=== PATIENT | male | born 1940 | race Caucasian/White ===

== ENCOUNTER 2017-04-24 10:38 | Outpatient (CLI) | payer MEDICARE ==
--- NOTE | 2017-04-24 17:39 | MRI ---
MRI LUMBAR SPINE WITHOUT IV CONTRAST: Date: 04-24-17 History: Lumbar radiculopathy. Patient has bilateral leg and feet neuropathy. FINDINGS: Conus medullaris has a normal appearance and terminates at the L1-2 level. There are large increased T1 and T2 weighted signal intensity lesions in the T12 and L4 vertebral bodies as well as smaller b ut moderated sized lesion within the L1 vertebral body which demonstrates characteristics most consi stent with large hemangiomas. Hemangioma of the L4 vertebral body almost completely replaces the arpita tebral body. There are subcentimeter T2 and corresponding decreased T1 weighted signal intensity les ions within the L2 and L5 vertebral bodies which demonstrate a stippled appearance and are also like ly related to hemangiomas. There is generalized heterogeneity of the bone marrow. T12-L1: There is a mild broad based disc bulge with results in slight effacement of the ventral suba rachnoid space. Neural foramina are patent. L1-2: There is a mild broad based disc osteophyte complex with facet hypertrophic changes and mild l igamentous thickening. Findings results in mild narrowing of the central spinal canal as well as mil d left sided neural foraminal narrowing. The right neural foramen is patent. L2-3: There is a broad based disc osteophyte complex. Facet hypertrophic changes are seen. There is mild narrowing of the central spinal canal. There is mild to moderate right and mild left sided neur al foraminal narrowing. L3-4: There is a broad based disc osteophyte complex. Facet hypertrophic changes and ligamentous thi ckening is noted. There is prominent of epidural fat posteriorly. Findings result in moderate narrow ing of the central spinal canal as well as moderate bilateral neural foraminal narrowing. L4-5: There is a broad based disc osteophyte complex. There are facet hypertrophic changes as well a s ligamentous thickening. Fluid signal intensity is seen at the facet joints at this level. There is prominence of epidural fat posteriorly. Findings result in moderate to severe narrowing of the cent ral spinal canal. There is also severe bilateral neural foraminal narrowing. L5-S1: There is mild broad based disc osteophyte complex. Prominent facet hypertrophic changes are p resent. There is fluid signal intensity seen within the facet joints. There is no significant narrow ing of the central spinal canal, but there is moderate to severe right and moderate left neural fora claudia narrowing. IMPRESSION: 1. Multilevel degenerative changes throughout the lumbar spine greatest in the lower lumbar spine. T here is severe bilateral neural foraminal narrowing at the L4-5 level with moderate to severe narrow ing of the central spinal canal. There is also moderate to severe bilateral neural foraminal narrowi ng at the L5-S1 level. 2. Multiple hemangiomas within vertebral bodies with generalized heterogeneous appearance of the bon e marrow. POS: [facility]
== END 2017-04-24 10:39 | disposition home or self-care (01) ==
LOC: MRI 10:38
PROVIDERS: ATTEND Family Medicine
DX: M47.26 Other spondylosis with radiculopathy, lumbar region (principal); D18.09 Hemangioma of other sites
CPT/HCPCS: 72148

== ENCOUNTER 2017-04-27 02:48 | Inpatient (IN) | payer MEDICARE ==
[2017-04-27 03:49] LABS: Lactic Acid - Sepsis 0.4 mmol/L (0.5-2.2)
[2017-04-27] MEDS ORDERED: Clindamycin/D5W 900 mg/50 ml Premix Bag ONE (04:13)
[2017-04-27 04:46] LABS: Troponin I 0.172 ng/mL (< 0.028)
[2017-04-27] MEDS ORDERED: Enoxaparin Sodium 100 MG/ML SYRINGE ONE (05:18)
[2017-04-27] MEDS ORDERED: Enoxaparin Sodium 30 MG/0.3 ML SYRINGE ONE (05:18)
[2017-04-27] MEDS ORDERED: Acetaminophen 325 MG TAB PO PRN ×2 (05:27→09:28)
[2017-04-27] MEDS ORDERED: Ondansetron HCl/PF 4 MG/2 ML Vial IVP PRN (05:27)
[2017-04-27] MEDS ORDERED: HYDROcodone/Acetaminophen 5/325 mg Tablet PO PRN (05:27)
[2017-04-27 05:55] VITALS: BMI 39.6
[2017-04-27] MEDS ORDERED: Vancomycin HCl 1.5 GM in Sodium Chloride 0.9% 250 ML 300 ML IVPB SCH (06:00)
[2017-04-27] MEDS: Mometasone/Formoterol 120 PUFF INHALER INH SCH ×2 (06:15→18:32)
--- NOTE | 2017-04-27 06:36 | PDOC.EVN ---
Event Note - Event Note Event Note: [id number] H&P Dictated 1. Leg cellulitis 2. HTN 3. H/O COPD 4. H/O BPH plan; see orders
[2017-04-27 07:44] LABS: Troponin I 0.164 ng/mL (< 0.028)
--- NOTE | 2017-04-27 08:50 | HP ---
DATE OF ADMISSION: 04/27/2017 CHIEF COMPLAINT: Leg erythema. HISTORY OF PRESENT ILLNESS: The patient is a 76-year-old male with past medical history of congesti ve heart failure, hypertension, COPD, CKD, chronic hyponatremia, alcohol abuse, came to the ER [facility] se of right leg edema. According to the the patient has a right leg fracture a few months back , since then he always has right lower extremity edema, but edema got worse the last few days, assoc iated with some drainage also. The patient went to PCP 2 days back and the patient was started on p .o. antibiotics. The patient was taking Keflex and Bactrim as an outpatient. The erythema got wors e yesterday. Denies any fever, denies any chills, that is why he came to the ER. In the ER the pat gildardo did have some low grade fever, denies chills. Patient denies any chest pain, denies any troubl e breathing, denies dizziness, denies lightheadedness. PAST MEDICAL HISTORY: As per HPI. PAST SURGICAL HISTORY: Carpal tunnel surgery, rotator cuff surgery, knee replacement. SOCIAL HISTORY: Denies smoking, positive for alcohol abuse, drinks alcohol every day, denies street drugs. REVIEW OF SYSTEMS: CONSTITUTIONAL: Denies any fever, denies any chills. EYES: Denies vision problems. EARS: Ears; no hearing loss. NECK: Denies neck pain. CARDIOVASCULAR: Denies any chest pain, denies palpitations. RESPIRATORY: Denies any cough, denies sputum production. GASTROINTESTINAL: Denies nausea, vomiting. MUSCULOSKELETAL: Positive for right lower extremity erythema. CRANIAL NERVE SYSTEM: Denies syncope, denies lightheadedness. PSYCHIATRIC: Denies anxiety. INTEGUMENTARY: Positive for right leg erythema. All other review of systems are reviewed and are negative. PHYSICAL EXAMINATION: VITAL SIGNS: At the time of H\T\P performed, blood pressure is 91/47, heart rate 65, pulse ox 96%. GENERAL: This patient appears tired. HEENT: ENT patent. Nose normal. Ears normal. Teeth intact. Tongue is moist. NECK: Supple, no jugular venous distention. CARDIOVASCULAR: S1, S2 present. Regular rate and rhythm, no murmurs, no rubs, no gallops. RESPIRATORY: No wheezing, no rhonchi present bilaterally. ABDOMEN: Soft, nontender, no guarding, no organomegaly, no masses felt. MUSCULOSKELETAL: Right lower extremity positive for erythema, warm to touch, positive for drainage seen. INTEGUMENTARY: Positive for right lower extremity edema. PSYCHIATRIC: Mood appears normal. NEUROLOGIC: Cranial nerves intact. Follows commands. Strength intact, sensory intact. LABORATORY DATA: At the time of H\T\P performed; sodium 133, potassium 4.7, chloride 100, CO2 24, B UN of 33, creatinine 1.91. White count 7, hemoglobin 11.5, platelet count is 168. PT 13.9, INR 1. D-dimer 1.27. Ultrasound negative for DVT. ASSESSMENT AND PLAN: The patient is 76 years old male. 1. Right lower extremity cellulitis. Plan to start patient on broad spectrum antibiotics. Plan to monitor the patient closely. 2. History of hypertension, monitor blood pressures, continue home blood pressure. 3. History of chronic obstructive pulmonary disease. Continue breathing treatments and monitor. 4. History of congestive heart failure, strict I's and O's. Continue home medications. 5. History of benign prostatic hypertrophy. Continue finasteride. The case was discussed in detail with the patient.
[2017-04-27] MEDS ORDERED: Enoxaparin Sodium 40 MG/0.4 ML SYRINGE SC SCH (09:00)
--- NOTE | 2017-04-27 09:01 | ULT ---
PRELIMINARY REPORT/[facility]/EMERGENCY AFTER HOURS PROCEDURE: EXAM: US Duplex Bilateral Lower Extremity Veins CLINICAL HISTORY: 76 years old, male; Pain and signs and symptoms; Edema, localized and other: Rle reddness; Lower ext remity, bilateral; Leg, lower; Patient HX: Rle redness, bilat pain/edema; Additional info: HX: Chf, rle cellulitis TECHNIQUE: Real-time ultrasound scan of the veins of the bilateral lower extremities with color Doppler flow, s pectral waveform analysis and compression. COMPARISON: No relevant prior studies available. FINDINGS: Right leg: No visible clot in the included veins. The included veins appear normally compressible. Duplex Doppler evaluation demonstrates flow in the evaluated veins. Left leg: No visible clot in the included veins. The included veins appear normally compressible. Duplex Doppler evaluation demonstrates flow in the evaluated veins. IMPRESSION: No evidence of acute right lower extremity DVT. No evidence of acute left lower extremity DVT. Thank you for allowing us to participate in the care of your patient. Dictated and Authenticated by: Felix Monk MD 04/27/2017 4:30 AM Central Time ([place] \T\ [place]) FINAL REPORT VENOUS ULTRASOUND BILATERAL LOWER EXTREMITIES: FINDINGS/IMPRESSION: I agree with the above-provided preliminary interpretation. No evidence of DVT. Soft tissue edema. Correlate clinically. POS: [facility]
[2017-04-27] MEDS ORDERED: Nitroglycerin 0.4 MG TAB (25 Tab Bottle) PO PRN (09:12)
[2017-04-27] MEDS ORDERED: RENALLY ADJUST ABX IVPB SCH (09:29)
[2017-04-27] MEDS ORDERED: Furosemide 40 MG/4 ML VIAL SLOW IVP SCH (09:30)
[2017-04-27] MEDS ORDERED: cefTRIAXone\\ROCEPHIN 1 GM in Sodium Chloride 0.9% 100 ML IVPB SCH (09:30)
[2017-04-27] MEDS ORDERED: Meropenem 1 GM in Sodium Chloride 0.9% 100 ML IVPB SCH (09:30)
--- NOTE | 2017-04-27 09:37 | PDOC.EVN ---
Event Note - Event Note Event Note: Patient seen and examined. Cardiology consulted for CHF. Has gained 16 lbs since last admission. Will start Lasix. DC Clindamycin. Add Ceftriaxone. Added general admission/CHF set. AM labs. Fluid restriction.
[2017-04-27] MEDS: Gabapentin 300 MG CAP PO SCH (10:56)
[2017-04-27] MEDS: Finasteride 5 MG TAB PO SCH (10:56)
[2017-04-27] MEDS: Aspirin 81 mg Enteric Coated Tablet PO SCH (10:56)
[2017-04-27] MEDS ORDERED: cefTRIAXone\\ROCEPHIN 1 GM, Admixture Fee 1 EACH in Sodium Chloride 0.9% 100 ML IVPB SCH (11:15)
[2017-04-27] MEDS ORDERED: Clindamycin/D5W 600 MG in Premix Bag 1 BAG IVPB SCH (12:00)
[2017-04-27] MEDS: cefTRIAXone\\ROCEPHIN 1 GM, Admixture Fee 1 EACH in Sodium Chloride 0.9% 100 ML IVPB SCH (12:49)
[2017-04-27] MEDS: Vancomycin HCl 1.5 GM in Sodium Chloride 0.9% 250 ML 300 ML IVPB SCH (12:49)
[2017-04-27] MEDS: Furosemide 40 MG/4 ML VIAL SLOW IVP SCH (14:26)
[2017-04-27] MEDS: Carvedilol 6.25 MG TAB PO SCH (17:38)
[2017-04-27] MEDS ORDERED: Enoxaparin Sodium 30 MG/0.3 ML SYRINGE SC SCH (21:00)
[2017-04-27] MEDS ORDERED: Carvedilol 6.25 MG TAB PO SCH (21:00)
[2017-04-27] MEDS ORDERED: Non-Formulary Item 1 EACH (Carvedilol [Coreg] 12.5 MG) PO SCH (21:00)
[2017-04-27] MEDS: Docusate 100 MG CAP PO SCH (21:16)
[2017-04-27] MEDS: Famotidine 20 MG TAB PO SCH (21:16)
[2017-04-28] MEDS: Furosemide 40 MG/4 ML VIAL SLOW IVP SCH ×2 (05:12→15:14)
[2017-04-28 06:06] LABS: #Eosinphils 0.4 thou/uL (0.0-0.7); #Lymphocytes 0.4 thou/uL (1.20-3.40); #Monocytes 0.5 thou/uL (0.11-0.59); #Neutrophils 3.1 thou/uL (1.40-6.50); %Basophils 0.7 % (0.0-1.0); %Eosinophils 8.7 % (0.0-10.0); %Monocytes 11.9 % (0.0-10.0); Hematocrit 32.8 % (42.0-52.0); Mean Platelet Volume 7.2 fL (7.4-10.4); Red Blood Cell (RBC) Count 3.14 mill/uL (4.70-6.10); White Blood Cell (WBC) Count 4.5 thou/uL (4.8-10.8)
--- NOTE | 2017-04-28 06:09 | CON ---
DATE OF CONSULTATION: 04/27/2017 INDICATION FOR CONSULTATION: A 76-year-old patient with indeterminate cardiac enzymes and history o f single vessel coronary artery disease. HISTORY OF PRESENT ILLNESS: This unfortunate gentleman who is 76-year-old has had no significant ca ia history, but does have one single-vessel coronary artery disease, had 50% stenosis in the righ t coronary in 2012, which was not felt to be significant for any angioplasty or stent placement or f urther intervention. He has been doing quite well since that time. He denied any complaints. Rece ntly, he has been having some problems with his right lower extremity in the lower aspect after he h ad a fracture. He then was placed on antibiotics recently. He noticed he had some redness and some fatigue with the legs and pain and erythema. He then presented to the emergency room for further e valuation and treatment. On evaluation there, he also underwent evaluation for the cardiac enzymes, which were felt to be indeterminate. He has had abnormal enzymes in the past. He denied any chest pain. His EKG is unremarkable for any acute problems. He denies any chest pain or significant farida rtness of breath. He does have some mild shortness of breath with exertion, but otherwise no signif icant problems have been noted by the patient. He does have a history of some congestive heart fail ure symptoms in the past and has been treated with diuretics and has responded quite well to that. He does have hypertension, but his ejection fraction has remained normal. He did complain of some w eakness of the lower extremities, which he said was due to weakness in his back. He has recently be en going also to [place] to get his teeth fixed back and forth and he has had some antibiotics I ruben santos during that time also, but otherwise, has been doing quite well. PAST MEDICAL HISTORY: 1. Significant for some congestive heart failure symptoms most likely associated with his hypertens ion and obesity. 2. Hypertension. 3. COPD. 4. He has chronic kidney disease, which is actually very stable and has been stable for quite some time. 5. He has had a right lower leg fracture. He has cellulitis of right lower extremity SOCIAL HISTORY: He is , has children who are alive and well. He denies any tobacco abuse. He has apparently daily alcohol use of 3-4 shots. FAMILY HISTORY: Unremarkable at this time for any acute problems he has related to this admission. ALLERGIES: Allergic to PENICILLIN. MEDICATIONS PRIOR TO ADMISSION: Included Protonix; potassium; lisinopril; multivitamins; Coreg 12.5 mg, he is taking 25 mg b.i.d.; CoQ10; Symbicort inhaler; gabapentin; isosorbide mononitrate 30 mg d aily; Lipitor 20 mg a day; nabumetone 500 mg daily; cephalexin 500 mg b.i.d.; he is taking Bactrim a lso 1 tablet b.i.d.; ferrous sulfate 325 mg a day; he is on Lotrisone cream as needed; he also takes torsemide 40 mg a day, finasteride 5 mg daily. REVIEW OF SYSTEMS: He mainly complains of occasional blurred vision. He has had recent problems wi th his teeth for which he went to [place] and replaced. He has had some work done in his teeth. He has right leg cellulitis and discomfort. He complaints of a weak back. Otherwise, his 12-point rev iew of systems is unremarkable. PHYSICAL EXAMINATION: GENERAL: Reveals a middle-aged or elderly gentleman who is morbidly obese. VITAL SIGNS: Blood pressure 134/60, heart rate 76, respiratory rate 18. He is afebrile. HEENT: Shows the head to be normocephalic and atraumatic. Carotid pulses are present. I cannot he ar any bruits. There is no JVD. The thyroid did not appear to be enlarged. CHEST: Clear to auscultation. I did not hear any rales, rhonchi or wheezing at this time. CARDIOVASCULAR: Exam reveals a regular rate and rhythm, normal S1, S2. There is no S3, S4. There were no significant murmurs, heaves, thrills, bruits or rubs. ABDOMEN: Shows morbid obesity. Positive bowel sounds are present. EXTREMITIES: Showed no clubbing or cyanosis. He does have some erythema noted in the right lower e xtremity just below the knee all the way down to the ankle involving the ankle and foot area due to cellulitis. He also has mild edema of both lower extremities, 1-2+ edema is noted. Pedal pulses ar e difficult to palpate, but are present. NEUROLOGIC: He appears to be fully intact. He is able to ambulate without too much difficulty at l east in the room. He does have some discomfort with leg. SKIN: Warm and dry at this time. IMAGING: His EKG shows sinus rhythm. He did have a venous ultrasound Doppler performed, which show ed no evidence of DVT. LABORATORY DATA: Shows a creatinine of 1.95 with a BUN of 33, potassium is 4.7, sodium was 133, blo od sugar 128. His cardiac enzymes showed a troponin I of 0.172, decrease down to 0.164. BNP of 572 with LDH of 75. He also has an AST of 19 with an ALT of 15, alkaline phosphatase 52. IMPRESSION: 1. Mild volume overload, although he most likely will respond very well to Lasix. He will need to advised to watch his volume intake as well as salt, but he does have actually hyponatremia and most likely he will do well with this small amount of sodium. His previous history of volume overload is due to lack of inactivity recently and just sitting around and not watching what he has been eating or drinking. His BNP is slightly elevated at 572, but is not critical as we sometimes see in the r efraín of 1000. 2. History of indeterminant troponin I, which is not unusual in this gentleman. He has had this ph enomenon in the past without any evidence of myocardial infarction. 3. Chronic kidney disease. His creatinine is 1.95 and on previous admissions it has been as much a s 2.83 and as low as 1.05. At this time, I believe his overall cardiac status is stable. We will c sebas to follow him with you as most significant problem appears to be cellulitis of the right low er extremity. 4. History of alcohol use. He said he drinks 3-4 drinks a day. His liver function appears to be n ormal. He may have some slight amount of ascites with difficult to palpate due to the obese abdomen . At this time, there is no further cardiac workup that would be indicated.
[2017-04-28 06:23] LABS: ALT (SGPT) 25 U/L (8-55); AST (SGOT) 27 U/L (5-34); Alkaline Phosphatase 69 U/L (40-150); Anion Gap 11 mmol/L (10-20); BUN (Urea Nitrogen) 33 mg/dL (8.4-25.7); Bilirubin, Total 0.3 mg/dL (0.2-1.2); Calc. Creatinine Clearance 54 mL/min (70-130); Calcium 8.3 mg/dL (7.8-10.44); Carbon Dioxide 26 mmol/L (23-31); Chloride 99 mmol/L (98-107); Estimated GFR-MDRD 33; Globulin 2.8 g/dL (2.4-3.5); Magnesium 2.2 mg/dL (1.6-2.6); Phosphorus 3.2 mg/dL (2.3-4.7); Protein, Total 6.1 g/dL (5.8-8.1)
[2017-04-28] MEDS: Carvedilol 6.25 MG TAB PO SCH ×2 (08:04→16:46)
[2017-04-28] MEDS: Docusate 100 MG CAP PO SCH ×2 (08:05→20:07)
[2017-04-28] MEDS: Finasteride 5 MG TAB PO SCH (08:05)
[2017-04-28] MEDS: Aspirin 81 mg Enteric Coated Tablet PO SCH (08:05)
[2017-04-28] MEDS: Famotidine 20 MG TAB PO SCH ×2 (08:05→20:07)
[2017-04-28] MEDS: Gabapentin 300 MG CAP PO SCH (08:06)
[2017-04-28] MEDS: Mometasone/Formoterol 120 PUFF INHALER INH SCH ×2 (08:25→19:10)
[2017-04-28] MEDS ORDERED: Enoxaparin Sodium 30 MG/0.3 ML SYRINGE SC SCH (09:00)
--- NOTE | 2017-04-28 12:07 | PDOC.PN ---
- Subjective Encounter Start Date: 04/28/17 Encounter Start Time: 11:00 Patient seen and examined. No new complaints. No overnight events. SOB better. - Objective Resuscitation Status: Resuscitation Status FULL:Full Resuscitation MAR Reviewed: Yes Vital Signs & Weight: Vital Signs (12 hours) Temp Pulse Resp BP BP Pulse Ox 04/28/17 12:00 98.1 F 68 20 114/54 L 94 L 04/28/17 08:31 94 L 04/28/17 08:25 80 12 04/28/17 08:04 134/60 04/28/17 07:55 97.9 F 80 12 138/65 96 04/28/17 04:00 98.1 F 78 18 133/60 95 Weight Admit Weight 276 lb Weight 273 lb 1.6 oz I&O: 04/27/17 04/28/17 04/29/17 06:59 06:59 06:59 Intake Total 1200 Output Total 1000 Balance 200 Result Diagrams: 04/28/17 05:35 04/28/17 05:35 EKG Reviewed by me: Yes (Tele SR) Phys Exam - Physical Examination Constitutional: NAD HEENT: PERRLA Neck: no JVD Respiratory: no wheezing, no rhonchi Scat rales at bases, Symmetrical Cardiovascular: RRR, no rub no gallops/heaves Gastrointestinal: soft, non-tender, positive bowel sounds Musculoskeletal: edema present (RLE erythema) Neurological: non-focal, normal sensation, moves all 4 limbs Dx/Plan (1) Acute on chronic diastolic heart failure Code(s): I50.33 - ACUTE ON CHRONIC DIASTOLIC (CONGESTIVE) HEART FAILURE Status : Acute (2) Cellulitis of right leg Code(s): L03.115 - CELLULITIS OF RIGHT LOWER LIMB Status: Acute Comment: on Vancomycin/Ceftriaxone (3) MEAGAN (acute kidney injury) Code(s): N17.9 - ACUTE KIDNEY FAILURE, UNSPECIFIED Status: Acute (4) CKD (chronic kidney disease) stage 3, GFR 30-59 ml/min Code(s): N18.3 - CHRONIC KIDNEY DISEASE, STAGE 3 (MODERATE) Status: Acute (5) Hyponatremia Code(s): E87.1 - HYPO-OSMOLALITY AND HYPONATREMIA Status: Acute Comment: ? chronic (6) CAD (coronary artery disease) Code(s): I25.10 - ATHSCL HEART DISEASE OF [place] CORONARY ARTERY W/O ANG PCTRS Status: Chronic (7) Elevated troponin Code(s): R74.8 - ABNORMAL LEVELS OF OTHER SERUM ENZYMES Status: Acute Comment: due to CHF - Plan cont current plan of care, continue antibiotics, out of bed/ambulate, DVT proph w/lovenox, DVT proph w/SCDs * Consult ID - No significant improvement in RLE cellulitis * AM labs * Cont diuretics * Change Gabapentin to HS per patient req * Cont tele monitoring * Cont fluid restriction * Monitor Vancomycin levels * ACEI on hold due to MEAGAN Review of Systems - Review of Systems Respiratory: SOB with Excertion. negative: Cough, Dry, Shortness of Breath, Hemoptysis, Pleuritic Pain, Sputum, Wheezing Cardiovascular: negative: Chest Pain, Palpitations, Orthopnea, Paroxysmal Noc. Dyspnea, Edema, Light Headedness, Other Gastrointestinal: negative: Nausea, Vomiting, Abdominal Pain, Diarrhea, Constipation, Melena, Hematochezia, Other - Medications/Allergies Allergies/Adverse Reactions: Allergies Allergy/AdvReac Type Severity Reaction Status Date / Time Penicillins Allergy Verified 01/02/17 11:17 Medications: Current Medications Acetaminophen (Tylenol) 650 mg PO Q4H PRN PRN Reason: Headache/Fever or Mild Pain Hydrocodone Bitart/Acetaminophen ([place] 5/325) 1 tab PO Q4H PRN PRN Reason: Moderate Pain (4-6) Albuterol/Ipratropium (Duoneb) 3 ml IPPB Q4H PRN PRN Reason: Wheezing or Cough Aspirin (Ecotrin) 81 mg PO DAILY [facility] Last Admin: 04/28/17 08:05 Dose: 81 mg Carvedilol (Coreg) 12.5 mg PO BID[facility] Last Admin: 04/28/17 08:04 Dose: 12.5 mg Docusate Sodium (Colace) 100 mg PO BID [facility] Last Admin: 04/28/17 08:05 Dose: 100 mg Duloxetine HCl (Cymbalta) 60 mg PO DAILY [facility] Last Admin: 04/28/17 08:05 Dose: 60 mg Enoxaparin Sodium (Lovenox) 30 mg SC 2100 [facility] Last Admin: 04/27/17 21:16 Dose: 30 mg Famotidine (Pepcid) 20 mg PO BID [facility] Last Admin: 04/28/17 08:05 Dose: 20 mg Finasteride (Proscar) 5 mg PO DAILY [facility] Last Admin: 04/28/17 08:05 Dose: 5 mg Furosemide (Lasix) 40 mg SLOW IVP 0600,1400 [facility] Last Admin: 04/28/17 05:12 Dose: 40 mg Gabapentin (Neurontin) 300 mg PO HS JAVIER Vancomycin HCl 1.5 gm/ Sodium (Chloride) 300 mls @ 200 mls/hr IVPB 1200 [facility] Last Admin: 04/27/17 12:49 Dose: 300 mls Ceftriaxone Sodium 1 gm/Miscellaneous Medication 1 each/ Sodium Chloride 100 mls @ 200 mls/hr IVPB Q24HR [facility] Last Admin: 04/27/17 12:49 Dose: 100 mls Miscellaneous Medication (Pharmacy To Dose) 1 each IVPB ASDIR [facility] Mometasone Furoate/Formoterol Fumar (Dulera 200 Mcg/5 Mcg Inhaler) 1 puff INH BID-RT [facility] Last Admin: 04/28/17 08:25 Dose: 1 puff Nitroglycerin (Nitrostat) 0.4 mg PO Q5MIN PRN PRN Reason: Chest Pain Ondansetron HCl (Zofran) 4 mg IVP Q6H PRN PRN Reason: Nausea/Vomiting Pantoprazole Sodium (Protonix) 40 mg PO DAILY [facility] Last Admin: 04/28/17 08:06 Dose: 40 mg Sodium Chloride (Flush - Normal Saline) 10 ml IVF PRN PRN PRN Reason: Saline Flush Last Admin: 04/28/17 08:08 Dose: 10 ml
[2017-04-28] MEDS: Vancomycin HCl 1.5 GM in Sodium Chloride 0.9% 250 ML 300 ML IVPB SCH (12:19)
[2017-04-28] MEDS: cefTRIAXone\\ROCEPHIN 1 GM, Admixture Fee 1 EACH in Sodium Chloride 0.9% 100 ML IVPB SCH ×2 (15:03→15:39)
--- NOTE | 2017-04-28 15:03 | PDOC.CTH ---
Cardiology Progress Note - Subjective The pt was seen and examined. No overnight events. No cardiac complaints. He is very sleepy due to pain medication for his leg pain he administered this afternoon. - Objective Vital Signs Temp Pulse Pulse Pulse Resp BP BP 04/28/17 12:00 98.1 F 68 20 04/28/17 08:55 80 70 112/54 L 04/28/17 08:31 04/28/17 08:25 80 12 04/28/17 08:04 134/60 04/28/17 07:55 97.9 F 80 12 04/28/17 04:00 98.1 F 78 18 BP BP Pulse Ox Pulse Ox Pulse Ox 04/28/17 12:00 114/54 L 94 L 04/28/17 08:55 110/46 L 91 L 95 04/28/17 08:31 94 L 04/28/17 08:25 04/28/17 08:04 04/28/17 07:55 138/65 96 04/28/17 04:00 133/60 95 Admit Weight 276 lb Weight 273 lb 1.6 oz 04/27/17 04/28/17 04/29/17 06:59 06:59 06:59 Intake Total 1200 Output Total 1000 Balance 200 - Physical Examination General/Neuro: alert & oriented x3 Neck: no JVD present Lungs: CTA Heart: RRR Abdomen: soft Extremities: other: (Erhythma @ Rt anterior side of his lower leg; warm to touch ; good pulses) - Telemetry Telemetry Rhythm: SR - Labs Result Diagrams: 04/28/17 05:35 04/28/17 05:35 Troponin/CKMB Troponin I 0.164 ng/mL (< 0.028) H 04/27/17 06:35 - Assessment/Plan 1. Acute on chronic diastolic heart failure - Stable with current medication; Change Lasix 40mg IV BID to PO daily due to his Renal function 2. HTN - stable with current medication 3. COPD - Stable with RA; cont. monitor 4. CKD stage 3 - slightly worse than yesterday; Change Lovenox to Heparin BID 5. Cellulitis of RLL - consulted by ID 6. Hyponatremia - on Fluid restriction MAR reviewed Review of Systems - Review of Systems Constitutional: reports: no symptoms reported EENTM: reports: no symptoms reported Respiratory: reports: no symptoms reported Cardiac (ROS): reports: no symptoms reported ABD/GI: reports: no symptoms reported : reports: no symptoms reported Endocrine: reports: no symptoms reported Hematologic/Lymphatic: reports: no symptoms reported
--- NOTE | 2017-04-28 17:55 | CON ---
DATE OF CONSULTATION: 04/28/2017 REASON FOR CONSULTATION: Cellulitis. HISTORY OF PRESENT ILLNESS: A 76-year-old with a history of cardiomyopathy, hypertension, COPD, and alcohol dependency syndrome as well as venous insufficiency, who developed a right leg cellulitis o r inflammatory changes. He had some areas of abrasion in the bottom aspect of the right foot given oral antimicrobials including Keflex and Bactrim with worsening and then admission for management. Initial findings, he was afebrile, appeared in some distress. No jugular venous distention. Lungs with symmetric air entry. Abdomen is protuberant, but not tender. Right leg with erythema and a sh allow abrasion at the bottom aspect of the right foot plantar aspect. Initial labs with white cell count of 4.5, hemoglobin 10.8 and platelets 153,000. Sodium 132, creatinine 1.97, which is higher t acosta his baseline from 07.14. Patient has been started on antimicrobial therapy with ceftria xone and vancomycin. Currently, he is feeling a little better, eating lunch for trying to having di fficulty with his dentures. No headaches. No visual symptoms, sore throat, odynophagia, or dysphag ia. Mild dyspnea. No chest pain. No abdominal pain. Voiding without difficulty. No diarrhea. S ome mobility impairment from his EGD and cardiomyopathy. No cognitive dysfunction. PAST MEDICAL HISTORY: Obesity, COPD, alcohol beverage dependency syndrome, some form of cardiomyopa thy, hypertension, and venous insufficiency. PAST SURGICAL HISTORY: Rotator cuff and knee repair, knee replacement, carpal tunnel surgery. SOCIAL HISTORY: Used to smoke heavily, but he quit a few years ago. Drinks daily. FAMILY HISTORY: Noncontributory. ALLERGIES: PENICILLIN with pruritus, but no rash. PHYSICAL EXAMINATION: VITAL SIGNS: T-max 99, currently 98.1, BP 114/54, pulse 68, respirations 12-20, O2 sat 94%. GENERAL: Appears in mild to moderate distress, sitting up, eating lunch, oriented. SKIN EXAM: With a circumferential erythema right leg, evidence of stasis dermatitis with hyperpigme ntation left leg. HEENT: Facial hyperemia. Injected conjunctivae. Pupils are equal. Oral cavity with quite a few t eeth in place. NECK: With some jugular venous distention. Supple. LUNGS: With somewhat coarse breath sounds, but no crackles or wheezing. HEART: S1, S2, regular rate. ABDOMEN: Protuberant. Nontender. No ascites. No bladder distention. No organomegaly. EXTREMITIES: Degenerative joint disease in knees and ankles. Pulses are faint palpable dorsalis pe dis. Moves extremities equally. NEUROLOGIC: Cognitive function appears to be intact. Labs have been reviewed above. Liver profile normal. Albumin 3.3. Microbiology pending, thus far negative blood cultures. Venogram negative. ASSESSMENT: Chronic obstructive pulmonary disease and cardiomyopathy, probably diastolic dysfunctio n and alcohol abuse, venous insufficiency with evidence of right leg cellulitis. DISCUSSION: Beta-hemolytic Streptococci are the most likely culprit here. Discontinue vancomycin a nd continue Rocephin, transition to Keflex for discharge planning; and after that penicillin VK supp ressive dose for 1 year 250 mg twice daily plus compression stockings.
[2017-04-28] MEDS: Heparin 5,000 UNITS/ML VIAL SC SCH (20:06)
[2017-04-29 06:01] LABS: #Eosinphils 0.4 thou/uL (0.0-0.7); #Lymphocytes 0.5 thou/uL (1.20-3.40); #Monocytes 0.6 thou/uL (0.11-0.59); #Neutrophils 3.3 thou/uL (1.40-6.50); %Basophils 0.3 % (0.0-1.0); %Eosinophils 9.3 % (0.0-10.0); %Lymphocytes 10.6 % (21.0-51.0); %Monocytes 12.2 % (0.0-10.0); Hematocrit 36.5 % (42.0-52.0); Mean Platelet Volume 7.2 fL (7.4-10.4); White Blood Cell (WBC) Count 4.8 thou/uL (4.8-10.8)
[2017-04-29 06:38] LABS: Anion Gap 11 mmol/L (10-20); BUN (Urea Nitrogen) 25 mg/dL (8.4-25.7); BUN/Creatinine Ratio 15.82; Calc. Creatinine Clearance 67 mL/min (70-130); Calcium 8.8 mg/dL (7.8-10.44); Carbon Dioxide 28 mmol/L (23-31); Chloride 99 mmol/L (98-107); Estimated GFR-MDRD 43; Phosphorus 2.8 mg/dL (2.3-4.7)
[2017-04-29] MEDS: Mometasone/Formoterol 120 PUFF INHALER INH SCH ×2 (07:32→19:38)
[2017-04-29] MEDS: Furosemide 40 MG TAB PO SCH (08:26)
[2017-04-29] MEDS: Carvedilol 6.25 MG TAB PO SCH ×2 (08:27→16:39)
[2017-04-29] MEDS: Aspirin 81 mg Enteric Coated Tablet PO SCH (08:28)
[2017-04-29] MEDS: Docusate 100 MG CAP PO SCH ×2 (08:28→20:06)
[2017-04-29] MEDS: Famotidine 20 MG TAB PO SCH ×2 (08:30→20:06)
[2017-04-29] MEDS: Finasteride 5 MG TAB PO SCH (08:30)
[2017-04-29] MEDS: Heparin 5,000 UNITS/ML VIAL SC SCH ×2 (08:32→20:07)
--- NOTE | 2017-04-29 10:15 | PDOC.PN ---
- Subjective Encounter Start Date: 04/29/17 Encounter Start Time: 09:45 Subjective: Did not sleep well last night. -: No other complaint., feels better. - Objective Resuscitation Status: Resuscitation Status FULL:Full Resuscitation Vital Signs & Weight: Vital Signs (12 hours) Temp Pulse Resp BP BP Pulse Ox 04/29/17 08:27 124/60 04/29/17 08:15 98.5 F 72 18 148/70 H 94 L 04/29/17 07:35 96 04/29/17 07:32 79 12 04/29/17 04:00 98.0 F 76 20 159/76 H 94 L 04/29/17 00:00 98.1 F 75 20 159/75 H 93 L Weight Admit Weight 276 lb Weight 271 lb 4.8 oz I&O: 04/28/17 04/29/17 04/30/17 06:59 06:59 06:59 Intake Total 1200 520 Output Total 1000 320 Balance 200 200 Result Diagrams: 04/29/17 05:23 04/29/17 05:23 Phys Exam - Physical Examination HEENT: sclera anicteric, oral pharynx no lesions Neck: no JVD Respiratory: clear to auscultation bilateral Cardiovascular: RRR Gastrointestinal: non-tender Musculoskeletal: edema present (cellulitis.) Neurological: moves all 4 limbs Psychiatric: A&O x 3 Dx/Plan (1) MEAGAN (acute kidney injury) Code(s): N17.9 - ACUTE KIDNEY FAILURE, UNSPECIFIED Status: Acute Plan: f/u chemistry.. Comment: improving. (2) Acute on chronic diastolic heart failure Code(s): I50.33 - ACUTE ON CHRONIC DIASTOLIC (CONGESTIVE) HEART FAILURE Status : Acute Comment: improving.. (3) Cellulitis of right leg Code(s): L03.115 - CELLULITIS OF RIGHT LOWER LIMB Status: Acute Plan: continue antibiotics. Comment: on Vancomycin/Ceftriaxone (4) Hyponatremia Code(s): E87.1 - HYPO-OSMOLALITY AND HYPONATREMIA Status: Acute Plan: Mild improvement. P: fluid restriction. Check TFT's Comment: ?chronic (5) CAD (coronary artery disease) Code(s): I25.10 - ATHSCL HEART DISEASE OF [place] CORONARY ARTERY W/O ANG PCTRS Status: Chronic Comment: Seen by cardiology. Stable. - Plan -: Continue current management,. -: Home soon. * .
[2017-04-29 11:29] LABS: Vancomycin, Trough 14.4 ug/mL
[2017-04-29] MEDS: cefTRIAXone\\ROCEPHIN 1 GM, Admixture Fee 1 EACH in Sodium Chloride 0.9% 100 ML IVPB SCH (14:39)
[2017-04-29] MEDS ORDERED: diphenhydrAMINE 25 MG CAP PO PRN (20:34)
[2017-04-29] MEDS ORDERED: Gabapentin 300 MG CAP PO SCH (21:00)
[2017-04-30] MEDS: Mometasone/Formoterol 120 PUFF INHALER INH SCH (06:41)
[2017-04-30] MEDS: Furosemide 40 MG TAB PO SCH (08:16)
[2017-04-30] MEDS: Carvedilol 6.25 MG TAB PO SCH (08:17)
[2017-04-30] MEDS: Aspirin 81 mg Enteric Coated Tablet PO SCH (08:19)
[2017-04-30] MEDS: Docusate 100 MG CAP PO SCH (08:19)
[2017-04-30] MEDS: Famotidine 20 MG TAB PO SCH (08:20)
[2017-04-30] MEDS: Finasteride 5 MG TAB PO SCH (08:21)
[2017-04-30] MEDS: Heparin 5,000 UNITS/ML VIAL SC SCH (08:26)
[2017-04-30 09:03] LABS: Anion Gap 11 mmol/L (10-20); BUN (Urea Nitrogen) 18 mg/dL (8.4-25.7); Calc. Creatinine Clearance 87 mL/min (70-130); Calcium 8.7 mg/dL (7.8-10.44); Carbon Dioxide 28 mmol/L (23-31); Chloride 100 mmol/L (98-107); Estimated GFR-MDRD 57
--- NOTE | 2017-04-30 09:25 | PDOC.PN ---
- Subjective Encounter Start Date: 04/30/17 Encounter Start Time: 09:00 Subjective: No complaint expressed. -: feels better. - Objective Resuscitation Status: Resuscitation Status FULL:Full Resuscitation MAR Reviewed: Yes Vital Signs & Weight: Vital Signs (12 hours) Temp Pulse Resp BP BP Pulse Ox 04/30/17 08:17 169/75 H 04/30/17 08:10 98.3 F 75 18 169/75 H 94 L 04/30/17 06:43 97 04/30/17 06:41 75 12 04/30/17 05:10 97.9 F 77 18 174/84 H 97 04/30/17 00:00 98.2 F 77 18 181/85 H 94 L Weight Admit Weight 276 lb Weight 271 lb 1.6 oz I&O: 04/29/17 04/30/17 05/01/17 06:59 06:59 06:59 Intake Total 520 1060 Output Total 320 1200 Balance 200 -140 Result Diagrams: 04/29/17 05:23 04/30/17 08:27 Phys Exam - Physical Examination HEENT: sclera anicteric Neck: no JVD Respiratory: clear to auscultation bilateral Cardiovascular: RRR Gastrointestinal: soft, non-tender, no distention Musculoskeletal: edema present (In right leg + cellulitis.) Dx/Plan (1) MEAGAN (acute kidney injury) Code(s): N17.9 - ACUTE KIDNEY FAILURE, UNSPECIFIED Status: Acute Comment: improving. (2) Acute on chronic diastolic heart failure Code(s): I50.33 - ACUTE ON CHRONIC DIASTOLIC (CONGESTIVE) HEART FAILURE Status : Acute Comment: improving.. (3) Cellulitis of right leg Code(s): L03.115 - CELLULITIS OF RIGHT LOWER LIMB Status: Acute Comment: on Vancomycin/Ceftriaxone (4) Hyponatremia Code(s): E87.1 - HYPO-OSMOLALITY AND HYPONATREMIA Status: Acute Comment: ? chronic (5) CAD (coronary artery disease) Code(s): I25.10 - ATHSCL HEART DISEASE OF [place] CORONARY ARTERY W/O ANG PCTRS Status: Chronic Comment: Seen by cardiology. Stable. - Plan Stable. -: Home today. -: f/u with ID, PCP, cardiology. * .
[2017-04-30 12:35] VITALS: BP 171/77; TEMP 98.5
--- NOTE | 2017-04-30 18:19 | DIS ---
DATE OF ADMISSION: 04/27/2017 DATE OF DISCHARGE: 04/30/2017 ADMITTING DIAGNOSIS: Right lower extremity cellulitis. SECONDARY DIAGNOSES: 1. History of hypertension. 2. Chronic obstructive pulmonary disease. 3. Congestive heart failure. 4. Benign prostatic hypertrophy. DISCHARGE DIAGNOSIS: As above. CONSULTANTS: Dr. Villegas and Dr. Spears and Dr. Galloway. PROCEDURE: Venous Doppler of the lower extremity, IV administration of antibiotics. Course of hosp italization uncomplicated, responded well to management. Patient is clinically stable at this time being discharged home. DISCHARGE MEDICATIONS: Please see discharge medication reconciliation sheet. The patient is to fol low up with Dr. Villegas and also with Cardiology and his primary care physician for 2 days. PHYSICAL EXAMINATION: Please refer to patient's medical work on progress note section. DISCHARGE TIME: 32 minutes.
[2017-04-30] MEDS ORDERED: Docusate 100 MG CAP PO SCH (21:00)
[2017-05-01] MEDS ORDERED: Spironolactone 25 MG TAB PO SCH (08:00)
[2017-05-01] MEDS ORDERED: Torsemide 20 MG TAB PO SCH (09:00)
[2017-05-01] MEDS ORDERED: Multivitamin W/ Minerals 1 TAB PO SCH (09:00)
[2017-05-01] MEDS ORDERED: Lisinopril 20 MG TAB PO SCH (09:00)
[2017-05-01] MEDS ORDERED: Finasteride 5 MG TAB PO SCH (09:00)
--- OUTSIDE RECORDS SUMMARY | 2017-05-02 11:21 | XMS | Clinical Summary ---
:1940 Author Organization [facility] Address [address] [place] [address] Phone Care Team Providers Name Role Phone , Primary Care Provider Unavailable Allergies Not on File Current Medications Not on file Active Problems Not on file Social History Tobacco Use Types Packs/Day Years Used Date Never Assessed Sex Assigned at Date Recorded Not on file Last Filed Vital Signs Not on file Plan of Treatment Not on file Results Not on filefrom Last 3 Months
== END 2017-04-30 13:24 | disposition home or self-care (01) | DRG 602 ==
LOC: ERS 02:48 → 2NO 04:30
PROVIDERS: ADMIT Internal Medicine; ATTEND Internal Medicine
DX: L03.115 Cellulitis of right lower limb (principal); I50.43 Acute on chronic combined systolic (congestive) and diastolic (congestive) heart failure; N17.9 Acute kidney failure, unspecified; I42.9 Cardiomyopathy, unspecified; E87.1 Hypo-osmolality and hyponatremia; I13.0 Hypertensive heart and chronic kidney disease with heart failure and stage 1 through stage 4 chronic kidney disease, or unspecified chronic kidney disease; J44.9 Chronic obstructive pulmonary disease, unspecified; N18.3 Chronic kidney disease, stage 3 (moderate); N40.0 Benign prostatic hyperplasia without lower urinary tract symptoms; I87.2 Venous insufficiency (chronic) (peripheral); F10.20 Alcohol dependence, uncomplicated; S90.811A Abrasion, right foot, initial encounter; E66.9 Obesity, unspecified; Z68.39 Body mass index [BMI] 39.0-39.9, adult; Z87.891 Personal history of nicotine dependence; I25.10 Atherosclerotic heart disease of native coronary artery without angina pectoris
CPT/HCPCS: 36415; 72148; 80048; 80053; 80069; 80202; 83605; 83735; 84100; 84439; 84443; 85025; 93005; 93798; 93970; 94664; 94760; 96361; 96365; 96372; A4216; G8978-GP-CI; G8979-GP-CI; G8980-GP-CI; G8987-GO-CI; G8988-GO-CI; G8989-GO-CI; J0696; J1644; J1650; J1940; J3370; J3490; J7050

== ENCOUNTER 2017-06-14 14:08 | Outpatient (CLI) | payer MEDICARE ==
--- NOTE | 2017-06-15 07:39 | MRI ---
MRI OF CERVICAL SPINE NONCONTRAST: DATE: 06/14/17. HISTORY: A 76-year-old male with M47.12, cervical spondylosis with myelopathy. COMPARISON: No prior imaging studies of the cervical spine. FINDINGS: Cervical spinal cord is normal in size. There is no syringohydromyelia. Heterogeneity of T2 signal throughout the cervical spinal cord is probably technical artifact. There is multilevel moderate and mostly severe degenerative facet disease bilaterally throughout all levels of the cervical spine, in cluding the cervicothoracic junction. There is disk space narrowing of varying degrees, including mo derate to severe at C3-4, followed by moderate at C5-6. There is an irregularly-shaped curvilinear thin hypointense signal at the upper aspect of the odontoi d process, with apparent slight anterior displacement of the superior fragment, suspicious for a frac ture. There is heterogeneous bone marrow T2-hyperintensity associated with this involving the superi or fragment, but it is uncertain how much of this is due to degenerative changes (subchondral cysts) versus traumatic edema. There is a degenerative pseudopannus posterior to the odontoid process, whic h mildly indents the thecal sac of the uppermost portion of the cervical spine. This does not contac t the cervicomedullary junction, and there is no high-grade central spinal canal stenosis at that lev el. There is thickened ligamentum flavum a few millimeters inferior to the foramen magnum, which enc roaches upon the posterior aspect of the spinal canal, and abuts the dorsal surface of the upper spin al cord at the C1-2 level, but does not indent it. Only sagittal images were obtained through this l evel. There is probably no high-grade central spinal canal stenosis at this level. C2-3: Moderate central spinal canal stenosis due to ligamentum flavum thickening and mild grade I an terolisthesis of C2 on C3 that is due to the bilateral degenerative facet disease. There is bilatera l severe neural foraminal stenosis. C3-4: Broad-based disk-osteophytic bar complex encroaches upon the anterior aspect of the spinal can al, causing mild to moderate central spinal canal stenosis. Moderate bilateral uncinate process oste ophytes and bilateral degenerative facet hypertrophy, result in severe bilateral neural foraminal octavia nosis, right worse than left. C4-5: Broad-based disk-osteophytic bar complex encroaches upon the anterior aspect of the spinal can al, causing mild to moderate central spinal canal stenosis. Lpstt-lf-ppthbdof-sized uncinate process osteophytes, together with facet hypertrophy, result in moderate right neural foraminal stenosis and moderate to severe left neural foraminal stenosis. C5-6: Prominent ligamentum flavum thickening abuts the dorsal surface of the spinal cord. Broad-bas ed disk-osteophytic bar complex abuts the ventral aspect of the spinal cord. Together, these result in moderate to severe central spinal canal stenosis. Large bilateral uncinate process osteophytes an d bilateral facet hypertrophy result in severe bilateral neural foraminal stenosis, left worse than r ight. C6-7: Mild broad-based disk-osteophytic bar complex causes mild central spinal canal stenosis. Bila teral uncinate process osteophytes and facet hypertrophy result in moderate to severe right neural fo raminal stenosis and moderate left neural foraminal stenosis. C7-T1: No central stenosis. Moderate to severe bilateral neural foraminal stenosis. IMPRESSION: 1. Possible mildly displaced type II odontoid fracture. Recommend further evaluation with noncontra st CT of cervical spine. 2. Advanced cervical spondylosis, with multilevel degenerative disk disease and facet osteoarthrosis , moderate and severe. 3. Multilevel bilateral severe neural foraminal stenosis. 4. Moderate to severe central spinal canal stenosis at C5-6. POS: [facility]
== END 2017-06-14 14:09 | disposition home or self-care (01) ==
LOC: TBSIIMAG 14:08
PROVIDERS: ATTEND Neurological Surgery
DX: M47.12 Other spondylosis with myelopathy, cervical region (principal); M48.02 Spinal stenosis, cervical region; M50.023 Cervical disc disorder at C6-C7 level with myelopathy
CPT/HCPCS: 72141; 72148

== ENCOUNTER 2017-10-26 12:26 | Outpatient (CLI) | payer MEDICARE | END 2017-10-26 12:27 | disposition home or self-care (01) | LOC: CP 12:26 | PROVIDERS: ATTEND Internal Medicine | DX: R06.09 Other forms of dyspnea (principal) | CPT/HCPCS: 94060; 94727; 94729 ==

== ENCOUNTER 2018-01-03 12:56 | Outpatient (CLI) | payer MEDICARE ==
[2018-01-03 14:59] LABS: pH, Arterial 7.47 (7.35-7.45)
[2018-01-03 15:00] LABS: Actual Bicarbonate (HCO3a) 33.2 mEq/L (22-28); Base Excess (BEa) 8.4 mEq/L (-2.0 to +3.0); CO2 Tension 46.3 mmHg (35.0-45.0); Hemoglobin (Hb) 14.6 g/dL (14.0-18.0); O2 Tension (PaO2) 64.3 mmHg (> 70.0)
[2018-01-03 15:02] LABS: ALV-art Gradient 27.555 (0-20); Analyzer IN Cardio OR; Calcium, Ionized 1.1 mmol/L (1.12-1.30); Puncture Site RR
== END 2018-01-03 12:57 | disposition home or self-care (01) ==
LOC: CP 12:56
PROVIDERS: ATTEND Internal Medicine
DX: G47.33 Obstructive sleep apnea (adult) (pediatric) (principal); I50.9 Heart failure, unspecified
CPT/HCPCS: 82805

== ENCOUNTER 2018-01-04 19:30 | Outpatient (CLI) | payer MEDICARE | END 2018-01-04 19:31 | disposition home or self-care (01) | LOC: SLEEPLAB 19:30 | PROVIDERS: ATTEND Internal Medicine | DX: G47.33 Obstructive sleep apnea (adult) (pediatric) (principal); K21.9 Gastro-esophageal reflux disease without esophagitis; I11.0 Hypertensive heart disease with heart failure; I50.9 Heart failure, unspecified; R35.1 Nocturia; E66.9 Obesity, unspecified; Z68.39 Body mass index [BMI] 39.0-39.9, adult; I49.3 Ventricular premature depolarization | CPT/HCPCS: 95811 ==

== ENCOUNTER 2018-01-14 23:54 | Inpatient (IN) | payer MEDICARE ==
[2018-01-15] MEDS ORDERED: Furosemide 40 MG/4 ML VIAL ONE (00:24)
[2018-01-15 00:38] LABS: #Eosinphils 0.4 thou/uL (0.0-0.7); #Lymphocytes 0.9 thou/uL (1.20-3.40); #Monocytes 0.4 thou/uL (0.11-0.59); #Neutrophils 4.2 thou/uL (1.40-6.50); %Basophils 0.8 % (0.0-1.0); %Eosinophils 6.6 % (0.0-10.0); %Monocytes 6.3 % (0.0-10.0); %Neutrophils 71.3 % (42.0-75.0); Hemoglobin 12.7 g/dL (14.0-18.0); Mean Corpuscular HGB CONC 34.8 g/dL (32.0-36.0); Mean Corpuscular Hemoglobin 35.1 pg (27.0-31.0); Mean Platelet Volume 6.9 fL (7.4-10.4); Platelet Count 159 thou/uL (130-400); RBC Distribution Width 10.8 % (11.5-14.5); Red Blood Cell (RBC) Count 3.63 mill/uL (4.70-6.10); White Blood Cell (WBC) Count 5.8 thou/uL (4.8-10.8)
[2018-01-15 01:05] LABS: ALT (SGPT) 16 U/L (8-55); AST (SGOT) 16 U/L (5-34); Albumin 3.8 g/dL (3.4-4.8); Alkaline Phosphatase 57 U/L (40-150); Anion Gap 14 mmol/L (10-20); BUN (Urea Nitrogen) 17 mg/dL (8.4-25.7); Bilirubin, Total 0.3 mg/dL (0.2-1.2); Calc. Creatinine Clearance 0 mL/min (70-130); Calcium 9.1 mg/dL (7.8-10.44); Carbon Dioxide 28 mmol/L (23-31); Chloride 99 mmol/L (98-107); Estimated GFR-MDRD 50; Globulin 2.6 g/dL (2.4-3.5); Glucose 121 mg/dL (83-110); Potassium 4.2 mmol/L (3.5-5.1); Protein, Total 6.4 g/dL (5.8-8.1); Sodium 137 mmol/L (136-145)
[2018-01-15 01:08] LABS: CKMB 1.6 ng/mL (0-6.6); Troponin I 0.042 ng/mL (< 0.028)
[2018-01-15] MEDS ORDERED: Acetaminophen 325 MG TAB PO PRN (03:29)
[2018-01-15] MEDS ORDERED: Ondansetron ODT 4 MG TAB SL PRN (03:29)
[2018-01-15] MEDS ORDERED: Ondansetron HCl/PF 4 MG/2 ML Vial IVP PRN (03:29)
[2018-01-15 04:46] VITALS: BMI 37.8
[2018-01-15] MEDS: Doxycycline 100 MG CAP PO SCH ×2 (05:06→05:10)
[2018-01-15 06:20] LABS: Troponin I 0.074 ng/mL (< 0.028)
--- NOTE | 2018-01-15 07:01 | HP ---
CODE STATUS: FULL CODE. PRIMARY CARE PHYSICIAN: Zach Goncalves M.D. TIME OF EVALUATION: 3:00 a.m. CHIEF COMPLAINT: Worsening shortness of breath. HISTORY OF PRESENT ILLNESS: This is 77 years old male patient with past medical history of diastolic heart failure as well as uncontrolled hypertension , also possible history of COPD. The patient reportedly has been followed with Dr. Brown and find out why the patient has continuous shortness of breath,he reporteed no clear diagnosis has been found as of now. He came to the hospital after having severe gradually worsening shortness of breath, no clear triggers or alleviating factors. The patient had cough, wheezing, no fever, no chills. REVIEW OF SYSTEMS: Constitutional: No fever, no chills. Generalized weakness. Respiratory: Cough, no sputum production, shortness of breath. Cardiovascular: No chest pain, palpitation. The patient had shortness of breath. Gastrointestinal: No nausea, no vomiting, diarrhea or abdominal pain. Central nervous system: No dizziness, headache or feeling lightheaded. No burning on urination. Extremities: Bilateral leg swelling. FAMILY HISTORY: The patient reported father is unknown, mother had a history of CHF. PAST MEDICAL HISTORY: The patient has congestive heart failure that is diastolic as per echo, bilateral rotator cuff injury, urinary history, hypertension, right testicle swollen. PAST SURGICAL HISTORY: Orthopedic surgery, left shoulder, rotator cuff surgery , hernia repair, left knee surgery, right shoulder, bilateral wrist, bilateral leg vein ablations, appendectomy, right testicle hydrocele surgery. PSYCHIATRIC HISTORY: Anxiety. SOCIAL HISTORY: The patient drinks every day. No drug use. Former tobacco user. KNOWN ALLERGIES: PENICILLIN. REPORTED MEDICATIONS: Aspirin, carvedilol, docusate sodium, furosemide, Protonix, Centrum Silver, magnesium, spironolactone, Coenzyme Q10. PHYSICAL EXAMINATION: VITAL SIGNS: On presentation, oxygen saturation 93 on room air, blood pressure 140/67, on presentation was 157/77, respiratory rate 20. GENERAL APPEARANCE: The patient is alert, oriented, and in no distress. HEENT: Eyes: Normal conjunctiva. Moist oral mucosa. Anicteric. NECK: Bilateral JVD. RESPIRATORY: Bilateral air entry, scattered wheezing and rales. CARDIOVASCULAR: Normal rate, regular rhythm. No murmur or gallop. Bilateral leg edema. ABDOMEN: Soft, normal bowel sounds. MUSCULOSKELETAL: Baseline range of motion and strength. No tenderness. SKIN: Warm and intact. No pallor, no rash, no redness. NEUROLOGIC: Baseline sensory. No evidence of any new focal weakness, vision or speech. Cranial nerves seem to be intact. PSYCHIATRIC: Good mood, no anxiety, oriented, optimal judgement. LABORATORY DATA: Reviewed. The patient had a white count of 5.8, hemoglobin 12.7, MCV 101, platelet count 159. Sodium 137, potassium 4.2, chloride 99, carbon dioxide 28, anion gap 14, BUN 17, creatinine 1.38 when compared with latest is than before. GFR 50, glucose 121. Lactic acid 1.9, troponin 0.042. Beta natriuretic peptide 208. IMAGING: The chest x-ray was reviewed by myself. The patient has possible bilateral pleural effusion. There are haziness and costophrenic angles, which is on the left side, official report from Radiology needs to be followed. EKG as discussed with performing physician room from ER showed occasional PVCs, no evidence of any acute ischemic event. ASSESSMENT AND PLAN: The patient will be placed in the hospital for the following medical conditions. 1. Congestive heart failure exacerbation. The patient presented with severe shortness of breath, elevated BNP, received Lasix, much improved, we will reconcile home medications, we will monitor on tele overnight, we will adjust the treatment as needed. 2. Uncontrolled hypertension. Initially presented with blood pressure 157, reconcile home medications, we adjust the treatment as needed. 3. Deep venous thrombosis prophylaxis. 4. Chronic kidney disease stage 3 with GFR of 50. We will monitor, we adjust the treatment as needed. 5. Mildly elevated troponin could be secondary to non-ST elevation myocardial infarction type 2. We will trend troponins and treat accordingly. MTDD
[2018-01-15] MEDS ORDERED: Carvedilol 25 MG TAB PO SCH ×3 (08:00→17:00)
[2018-01-15] MEDS: Ferrous Sulfate 325 MG TAB PO SCH (08:58)
[2018-01-15] MEDS: Lisinopril 20 MG TAB PO SCH (08:58)
[2018-01-15] MEDS: Docusate 100 MG CAP PO SCH ×2 (08:59→20:36)
[2018-01-15] MEDS: Finasteride 5 MG TAB PO SCH (08:59)
[2018-01-15] MEDS: Spironolactone 25 MG TAB PO SCH (09:00)
[2018-01-15] MEDS: Rosuvastatin 10 MG TAB PO SCH (09:00)
[2018-01-15] MEDS ORDERED: Furosemide 40 MG/4 ML VIAL SLOW IVP SCH ×2 (09:00→17:15)
--- NOTE | 2018-01-15 09:48 | RAD ---
CHEST 1 VIEW: Date: 01/15/18 HISTORY: Cough. COMPARISON: 12/18/17. FINDINGS: Cardiaca silhouette magnified, upper limits of normal, and now partially obscured by bibasilar atelec tasis, right greater than left. Horizontally oriented linear opacity at the right base may represent fluid in the minor fissure. Pulmonary vasculature is upper limits of normal. Mediastinum is midline w ith aortic calcification. No evidence of pneumothorax. Postoperative changes right shoulder. IMPRESSION: 1. Bibasilar atelectasis. Small amount of right pleural fluid. 2. Borderline pulmonary vascular congestion. 3. Atherosclerosis. POS: [facility]
--- NOTE | 2018-01-15 10:53 | PDOC.EVN ---
Event Note - Event Note Event Note: pt seen & examined h&p reviewed no new c/o, still has SOB but subjectively better per the patient has been progressive with acute worsening in the last week - had actually called EMS several days ago and ended up going in to see a physician exam s1, s2, pulses 2+ b/l UE, 2+ b/l LE pitting pedal edema, no m/r/g, soft heart tones diminished throughout resp sounds, no conversational dyspnea on NC O2, no w/r/r + bs, soft, non ttp maee A/P hx of CHF question of exac lasix 40mg IV BID apprec card c/s ECHO 2D cont home regimen otherwise hx COPD apprec pulm c/s resp status improving with diuresis, lower suspicion of a primary COPD exac continue to monitor O2 diet: breana ball sodium activity: as brijesh dvt ppx
[2018-01-15] MEDS ORDERED: Enoxaparin Sodium 40 MG/0.4 ML SYRINGE SC SCH (13:45)
[2018-01-15] MEDS: Azithromycin 250 MG TAB PO SCH (14:36)
--- NOTE | 2018-01-15 15:48 | CON ---
DATE OF CONSULTATION: 01/15/2018 This consultation encompassed 70 minutes. Of that time, greater than 50% was spent with the patient and/or on the patient's hospital unit with me being immediately available for all of his medical need s. REASON FOR CONSULTATION: Chronic obstructive pulmonary disease exacerbation. HISTORY OF PRESENT ILLNESS: The patient is a 77-year-old male, who routinely sees my partner, Dr. Anitha rBown. I have also seen him in the office and in the hospital in the past. He came to the [facility] night with increasing shortness of breath, exacerbated by supine posture. He was having cough and congestion, which was not alleviated by his rescue inhaler. He has been evaluated in the office several times in the past. He has restrictive lung disease, but has episodes that almost looked like COPD. On his last office visit in October, Dr. Borwn took him o ff the Symbicort to see how he was doing; the patient had requested that he come off this medication to see how he did. He also has a history of what appears to be congestive heart failure. On this particular admission, he seems to have responded very quickly to diuretics. PAST MEDICAL HISTORY: 1. Congestive heart failure - diastolic 2. Chronic obstructive pulmonary disease. 3. Osteoarthritis with chronic shoulder pain. 4. Urinary retention. 5. Hypertension. 6. Right testicular swelling. PAST SURGICAL HISTORY: 1. He has had orthopedic surgery on his shoulder. 2. Carpal tunnel release. 3. Appendectomy. 4. Perirectal abscess drainage. 5. Eye surgery. ALLERGIES: PENICILLIN. SOCIAL HISTORY: Quit smoking many years ago. Drinks 4-5 beers a day. He is . MEDICATIONS PRIOR TO ADMISSION: Aspirin, carvedilol, docusate, furosemide, Protonix, Centrum, magnes ium, spironolactone, Coenzyme Q10, and albuterol. REVIEW OF SYSTEMS: Twelve-point review of systems is, otherwise, negative. PHYSICAL EXAMINATION: VITAL SIGNS: Temperature 97.6, pulse 88, respirations 18, O2 sat 95% on 2 liters, blood pressure 125 /58. The patient is sitting up in bed. He is awake, alert, does not appear to be in any distress. HEENT EXAM: Pupils reactive to light. Sclerae are anicteric. Oropharynx clear. NECK: No adenopathy or JVD. LUNGS: He has coarse rhonchi, which is worse toward the bases. He has some wheezing noted in both b ases posteriorly. CARDIAC EXAM: Regular, without murmur, rub, or gallop. ABDOMEN: Soft, nontender. He is obese. EXTREMITIES: No clubbing, cyanosis, or edema. LABORATORY AND X-RAY FINDINGS: White blood cell count 5.8, hematocrit 36.6, platelet count 159. Sod ium 137, potassium 4.2, chloride 99, CO2 of 28, BUN 17, creatinine 1.4, glucose 121. Troponin 0.074, BNP 208. His x-ray shows bilateral atelectasis, probably a small right pleural effusion. There is pulmonary vascular congestion - I have reviewed this x-ray personally. ASSESSMENT: Acute hypoxic respiratory failure. I think that he probably has diastolic dysfunction. He may have some concurrent obstructive lung disease with this. His numbers on PFTs obtained in the past actually do not look bad, but his symptoms have been very suggestive of obstructive lung diseas e. RECOMMENDATIONS: I have reviewed his orders. I agree with the diuresis. He is currently not listed as getting any breathing treatments, so I will go ahead and start those. I would favor treating him with a short course of antibiotics and steroids. [facility] He will follow with him.
[2018-01-15] MEDS: Mometasone/Formoterol 120 PUFF INHALER INH SCH (19:13)
[2018-01-15] MEDS: predniSONE 20 MG TAB PO SCH (20:32)
[2018-01-15] MEDS: Magnesium Oxide 250 MG TAB PO SCH (20:35)
[2018-01-15] MEDS ORDERED: Gabapentin 300 MG CAP PO SCH (21:00)
--- NOTE | 2018-01-15 23:34 | CON ---
DATE OF CONSULTATION: 01/15/2018 HISTORY OF PRESENT ILLNESS: Evert Ramirez is a 77-year-old white male with a history of 50% stenosis in his right coronary artery. He had catheterization in 2012. He was hospitalized in 04/2017 with diastolic heart failure. He was recently seen in the office on the 01/09/2018, complaining of shortness of breath. He now is admitted with worsening dyspnea. He states if he is supine in bed, he would develop a cough, productive of yellow sputum. He denies any chest discomfort, fever, or chills. PAST MEDICAL HISTORY: Diastolic heart failure, hypertension, mild coronary artery disease, mixed hyperlipidemia and chronic kidney disease. MEDICATIONS AT HOME: Include aspirin 81 daily; Protonix 40 daily; furosemide 40 mg q.a.m.; finasteride 5 mg daily; KCl 10 mEq on every Monday, Monday, and Monday; Aldactone 25 daily; carvedilol 25 mg b.i.d.; red yeast rice 2 daily; Symbicort inhaler 2 puffs b.i.d.; magnesium 500 mg daily; CoQ10 of 200 mg daily; multivitamin daily; nitroglycerin p.r.n.; and Crestor 10 mg daily. ALLERGIES: PENICILLIN. OPERATIONS: Left shoulder surgery, left knee surgery, right shoulder surgery, wrist surgery, bilateral vein ablations, appendectomy, hydrocele surgery. SOCIAL HISTORY: He does not smoke any longer, but he still drinks. REVIEW OF SYSTEMS: Twelve-point review of systems is otherwise unremarkable. PHYSICAL EXAMINATION: VITAL SIGNS: Blood pressure 104/55, pulse of 92. HEENT: PERRL. NECK: Supple. CHEST: Reveals crackles at the right and left base. CARDIOVASCULAR: S1, S2 normal, without any S3, S4 or murmurs. ABDOMEN: Obese. Normal bowel sounds, no tenderness. EXTREMITIES: Revealed 1+ to 2+ pretibial edema. NEUROLOGIC: Grossly intact. SKIN: Warm and dry. LABORATORY DATA AND IMAGING: EKG revealed normal sinus rhythm with premature atrial beats and left axis deviation. Hemoglobin 12.7, hematocrit 36.6, white count 5800, platelets 159,000. Sodium 137, potassium 4.2, chloride 99, carbon dioxide 28, BUN 17, creatinine 1.38. BNP 208.5, troponin I 0.074. Chest x-ray reveals small right pleural effusion and borderline pulmonary vascular congestion. IMPRESSION: 1. Diastolic heart failure. 2. Chronic obstructive pulmonary disease. 3. Hypertension. 4. Hyperlipidemia. 5. Coronary artery disease - 50% right coronary artery stenosis. 6. Chronic kidney disease. 7. Obesity. 8. Severe obstructive sleep apnea. PLAN: The patient will continue to be diuresed. I will increase his furosemide to 40 mg IV b.i.d. Electrolytes and his renal function will be watched closely. MTDD
[2018-01-16 05:01] LABS: #Lymphocytes 0.8 thou/uL (1.20-3.40); #Monocytes 0.4 thou/uL (0.11-0.59); %Basophils 0.1 % (0.0-1.0); %Eosinophils 0.3 % (0.0-10.0); %Lymphocytes 9.8 % (21.0-51.0); %Monocytes 5.2 % (0.0-10.0); %Neutrophils 84.5 % (42.0-75.0); Hemoglobin 12.3 g/dL (14.0-18.0); Mean Corpuscular HGB CONC 34.2 g/dL (32.0-36.0); Mean Corpuscular Hemoglobin 35.1 pg (27.0-31.0); Mean Platelet Volume 7.4 fL (7.4-10.4); Platelet Count 152 thou/uL (130-400); RBC Distribution Width 10.9 % (11.5-14.5); White Blood Cell (WBC) Count 8.3 thou/uL (4.8-10.8)
[2018-01-16] MEDS: Furosemide 40 MG/4 ML VIAL SLOW IVP SCH ×2 (05:17→14:08)
[2018-01-16 05:25] LABS: Anion Gap 13 mmol/L (10-20); BUN (Urea Nitrogen) 27 mg/dL (8.4-25.7); Calc. Creatinine Clearance 65 mL/min (70-130); Calcium 8.8 mg/dL (7.8-10.44); Carbon Dioxide 30 mmol/L (23-31); Chloride 96 mmol/L (98-107); Estimated GFR-MDRD 42; Glucose 160 mg/dL (83-110); Potassium 4.6 mmol/L (3.5-5.1); Sodium 134 mmol/L (136-145)
[2018-01-16] MEDS: Mometasone/Formoterol 120 PUFF INHALER INH SCH ×2 (06:41→19:37)
[2018-01-16] MEDS ORDERED: Diabetic Tussin 200 MG/10 ML UDCUP PO PRN (08:42)
[2018-01-16] MEDS ORDERED: Carvedilol 25 MG TAB PO SCH (09:00)
[2018-01-16] MEDS: Enoxaparin Sodium 40 MG/0.4 ML SYRINGE SC SCH (09:43)
[2018-01-16] MEDS: Lisinopril 20 MG TAB PO SCH (09:44)
[2018-01-16] MEDS: Finasteride 5 MG TAB PO SCH (09:44)
[2018-01-16] MEDS: guaiFENesin ER 600 MG TAB PO SCH ×2 (09:44→20:37)
[2018-01-16] MEDS: predniSONE 20 MG TAB PO SCH (09:44)
[2018-01-16] MEDS: Magnesium Oxide 250 MG TAB PO SCH ×2 (09:44→20:34)
[2018-01-16] MEDS: Rosuvastatin 10 MG TAB PO SCH (09:44)
[2018-01-16] MEDS: Ferrous Sulfate 325 MG TAB PO SCH (09:45)
[2018-01-16] MEDS: Spironolactone 25 MG TAB PO SCH (09:45)
[2018-01-16] MEDS: Cepastat Lozenges 1 LOZ PO PRN ×2 (09:45→22:45)
[2018-01-16] MEDS: Docusate 100 MG CAP PO SCH ×2 (09:45→20:35)
--- NOTE | 2018-01-16 12:59 | PRG ---
DATE OF SERVICE: 01/16/2018 SERVICE: Pulmonary Medicine. INTERVAL HISTORY: The patient is doing fine from a respiratory standpoint. Overnight, he has diuresed very nicely. His oxygen saturations are stable and his FIO2 was dropped off a little bit. He denies any current chest pain, nausea , vomiting, fevers or chills. Otherwise, there has been no interval change to his condition. OBJECTIVE: VITAL SIGNS: Afebrile, pulse 68, blood pressure 123/67, respirations 18, saturation 94% on 2 liters nasal cannula. GENERAL: The patient is awake, alert, no apparent distress. LUNGS: Decent air entry. Dependent crackles are minimal. There is no prolonged expiratory phase. HEART: Normal rate, regular. ABDOMEN: Soft, nontender, nondistended. Bowel sounds are positive. MUSCULOSKELETAL: No cyanosis or clubbing. There is diffuse 2+ pitting in the bilateral lower extremities. NEUROLOGIC: Grossly nonfocal. LABORATORY DATA: CBC is grossly unremarkable/stable. Creatinine 1.61, BUN 27. Basic metabolic profile is otherwise unremarkable. Troponin is up trending to 0.07, BNP 208. Liver function studies are unremarkable. Lactate negative. IMAGING: Chest x-ray demonstrates bilateral atelectasis, very small right pleural fluid. Pulmonary vascular congestion is noted. ASSESSMENT: 1. Acute hypoxic respiratory failure. 2. Acute on chronic diastolic heart failure. 3. Restrictive lung disease. 4. Acute bronchitis. 5. Obstructive sleep apnea, DISCUSSION AND PLAN: We will initiate the patient on his home BiPAP settings of 15/10. I will submit a prescription for him to start noninvasive therapy in the outpatient setting. We will diurese the patient to euvolemia. I will back off on his steroids and nebulized medications. He will remain in the hospital for the next 24 hours while we adjust some of his medications. NORI
[2018-01-16] MEDS ORDERED: Folic Acid 1 MG TAB PO SCH (13:30)
--- NOTE | 2018-01-16 13:35 | PDOC.PN ---
- Subjective Encounter Start Date: 01/16/18 Encounter Start Time: 11:00 Patient seen and examined for CHF. Feels slightly better. Productive cough +. No CP/Palpitations or syncope. No new complaints. No overnight events - Objective Resuscitation Status: Resuscitation Status FULL:Full Resuscitation MAR Reviewed: Yes Vital Signs & Weight: Vital Signs (12 hours) Temp Pulse Resp BP BP Pulse Ox 01/16/18 11:40 97.6 F 68 20 85/52 L 01/16/18 09:56 71 18 94 L 01/16/18 09:45 98.6 F 01/16/18 09:44 123/67 01/16/18 07:17 63 18 123/67 95 01/16/18 06:41 77 16 94 L 01/16/18 06:39 77 16 94 L 01/16/18 04:15 98.4 F 65 20 117/56 L 97 01/16/18 02:43 94 L Weight Weight 271 lb 6.4 oz I&O: 01/15/18 01/16/18 01/17/18 06:59 06:59 06:59 Intake Total 420 1494 Output Total 300 1180 Balance 120 314 Result Diagrams: 01/16/18 04:23 01/16/18 04:23 Radiology Reviewed by me: Yes (CXR - Pulm vas congestion) EKG Reviewed by me: Yes (Tele SR) Phys Exam - Physical Examination Constitutional: NAD Sitting on chair - unable to lie flat Neck: no JVD Respiratory: no wheezing, no rhonchi Dec AE at bases, No accessory muscle use while resting, Symmetrical Cardiovascular: RRR, no rub no heaves/pulsations Gastrointestinal: soft, non-tender, positive bowel sounds distended Musculoskeletal: pulses present, edema present Neurological: non-focal, normal sensation, moves all 4 limbs Psychiatric: normal affect, A&O x 3 Skin: no rash Dx/Plan (1) Acute on chronic diastolic heart failure Code(s): I50.33 - ACUTE ON CHRONIC DIASTOLIC (CONGESTIVE) HEART FAILURE Status : Acute (2) Acute bronchitis Code(s): J20.9 - ACUTE BRONCHITIS, UNSPECIFIED Status: Acute (3) CKD (chronic kidney disease) stage 3, GFR 30-59 ml/min Code(s): N18.3 - CHRONIC KIDNEY DISEASE, STAGE 3 (MODERATE) Status: Chronic (4) Elevated troponin Code(s): R74.8 - ABNORMAL LEVELS OF OTHER SERUM ENZYMES Status: Acute Comment: due to CHF (5) CAD (coronary artery disease) Code(s): I25.10 - ATHSCL HEART DISEASE OF [place] CORONARY ARTERY W/O ANG PCTRS Status: Chronic (6) Hypertension Code(s): I10 - ESSENTIAL (PRIMARY) HYPERTENSION Status: Chronic (7) Obesity (BMI 30-39.9) Code(s): E66.9 - OBESITY, UNSPECIFIED Status: Chronic - Plan continue antibiotics, respiratory therapy, DVT proph w/lovenox Cont IV Lasix -: Coreg and Lisinopril dose reduced due to low BP, Hold Aldactone -: AM labs, Cont Steroids -: Cont fluid rest, daily weights -: Cont current meds as below Review of Systems - Review of Systems Cardiovascular: orthopnea, edema. negative: chest pain, palpitations, paroxysmal nocturnal dyspnea, light headedness, other Gastrointestinal: negative: Nausea, Vomiting, Abdominal Pain, Diarrhea, Constipation, Melena, Hematochezia, Other - Medications/Allergies Allergies/Adverse Reactions: Allergies Allergy/AdvReac Type Severity Reaction Status Date / Time Penicillins Allergy Verified 01/15/18 04:20 Medications: Current Medications Albuterol/Ipratropium (Duoneb) 3 ml NEB [id number] [facility] Last Admin: 01/16/18 09:56 Dose: 3 ml Albuterol/Ipratropium (Duoneb) 3 ml NEB [id number] PRN PRN Reason: SOB &/or Wheezing Aspirin (Aspirin Chewable) 81 mg PO DAILY [facility] Last Admin: 01/16/18 09:45 Dose: 81 mg Azithromycin (Zithromax) 250 mg PO 1500 [facility] Stop: 01/18/18 15:01 Last Admin: 01/15/18 14:36 Dose: 250 mg Carvedilol (Coreg) 3.125 mg PO BID [facility] Docusate Sodium (Colace) 100 mg PO BID [facility] Last Admin: 01/16/18 09:45 Dose: 100 mg Enoxaparin Sodium (Lovenox) 40 mg SC 0900 [facility] Last Admin: 01/16/18 09:43 Dose: 40 mg Ferrous Sulfate (Feosol) 325 mg PO QAM-WM [facility] Last Admin: 01/16/18 09:45 Dose: 325 mg Finasteride (Proscar) 5 mg PO DAILY [facility] Last Admin: 01/16/18 09:44 Dose: 5 mg Folic Acid (Folvite) 1 mg PO DAILY [facility] Folic Acid (Folvite) 1 mg PO NOW [facility] Stop: 01/16/18 15:30 Furosemide (Lasix) 40 mg SLOW IVP 0600,1400 [facility] Last Admin: 01/16/18 05:17 Dose: 40 mg Gabapentin (Neurontin) 200 mg PO HS [facility] Guaifenesin (Robitussin Sf) 200 mg PO Q4H PRN PRN Reason: Cough Last Admin: 01/16/18 11:48 Dose: 200 mg Guaifenesin (Mucinex) 600 mg PO Q12HR [facility] Last Admin: 01/16/18 09:44 Dose: 600 mg Isosorbide Mononitrate (Imdur Er) 30 mg PO DAILY [facility] Last Admin: 01/16/18 09:44 Dose: 30 mg Lisinopril (Zestril) 5 mg PO DAILY [facility] Magnesium Oxide (Magnesium Oxide) 500 mg PO BID [facility] Last Admin: 01/16/18 09:44 Dose: 500 mg Mometasone Furoate/Formoterol Fumar (Dulera 200 Mcg/5 Mcg Inhaler) 2 puff INH BID-RT [facility] Last Admin: 01/16/18 06:41 Dose: 2 puff Pantoprazole Sodium (Protonix) 40 mg PO DAILY [facility] Last Admin: 01/16/18 09:44 Dose: 40 mg Prednisone (Prednisone) 20 mg PO DAILY [facility] Stop: 01/19/18 09:01 Rosuvastatin Calcium (Crestor) 10 mg PO DAILY [facility] Last Admin: 01/16/18 09:44 Dose: 10 mg Sodium Chloride (Flush - Normal Saline) 10 ml IVF Q12HR [facility] Last Admin: 01/16/18 09:43 Dose: 10 ml Sodium Chloride (Flush - Normal Saline) 10 ml IVF PRN PRN PRN Reason: Saline Flush Last Admin: 01/16/18 05:17 Dose: 10 ml Spironolactone (Aldactone) 25 mg PO DAILY [facility] Last Admin: 01/16/18 09:45 Dose: Not Given Thiamine HCl (Thiamine) 100 mg PO DAILY [facility] Thiamine HCl (Thiamine) 100 mg PO NOW [facility] Stop: 01/16/18 15:30 Throat Lozenges (Cepastat Lozenges) 1 elzbieta PO Q2H PRN PRN Reason: Sore Throat Last Admin: 01/16/18 09:45 Dose: 1 elzbieta
[2018-01-16] MEDS: Azithromycin 250 MG TAB PO SCH (16:02)
--- NOTE | 2018-01-16 16:25 | PDOC.CTH ---
<Lizeth Spears - Last Filed: 01/16/18 16:28> Cardiology Progress Note - Subjective The pt seen and examined. No overnight events. No cardiac complaints. However , he complains of low BP. He also complains of soreness to his breast since he started taking Spironolactone. - Objective Vital Signs Temp Pulse Resp BP BP Pulse Ox 01/16/18 14:40 75 18 94 L 01/16/18 11:40 97.6 F 68 20 85/52 L 01/16/18 09:56 71 18 94 L 01/16/18 09:45 98.6 F 01/16/18 09:44 123/67 01/16/18 07:17 97.6 F 68 20 123/67 95 01/16/18 06:41 77 16 94 L 01/16/18 06:39 77 16 94 L Weight 271 lb 6.4 oz 01/15/18 01/16/18 01/17/18 06:59 06:59 06:59 Intake Total 420 1494 Output Total 300 1180 Balance 120 314 - Physical Examination General/Neuro: alert & oriented x3 Neck: no JVD present Lungs: other: (diminished at bases) Abdomen: soft Extremities: other: (2+ pitting BLE edema) - Telemetry Telemetry Rhythm: SR 60s - Labs Result Diagrams: 01/16/18 04:23 01/16/18 04:23 Troponin/CKMB CK-MB (CK-2) 1.6 ng/mL (0-6.6) 01/15/18 00:24 Troponin I 0.074 ng/mL (< 0.028) H 01/15/18 05:42 - Assessment/Plan 1. Acute on chronic diastolic HF - stable with Lasix 40mg IV BID, Bblocker and CHRISTINE; cont.to monitor 2. Acute bronchitis - on Antibiotics; managed by insecticide maker/PCP 3. CAD with 50% stenosis in RCA in 2013 - 4. HTN - Coreg and Lisinopril dose reduced due to low BP; Aldactone is on hold; Stop Imdur; cont. to monitor 5. CKD - stable; 6. Obese - MAR reviewed - Review of Systems - Review of Systems Constitutional: reports: no symptoms reported EENTM: reports: no symptoms reported Respiratory: reports: no symptoms reported Cardiac (ROS): reports: no symptoms reported ABD/GI: reports: no symptoms reported : reports: no symptoms reported <Frances Galloway - Last Filed: 01/16/18 18:36> Cardiology Progress Note - Objective Vital Signs Temp Pulse Resp BP BP Pulse Ox 01/16/18 16:00 97.4 F L 68 20 103/50 L 93 L 01/16/18 14:40 75 18 94 L 01/16/18 13:52 61 93/50 L 01/16/18 11:40 97.6 F 68 20 85/52 L 01/16/18 09:56 71 18 94 L 01/16/18 09:45 98.6 F 01/16/18 09:44 123/67 01/16/18 07:17 97.6 F 68 20 123/67 95 01/16/18 06:41 77 16 94 L 01/16/18 06:39 77 16 94 L Weight 271 lb 6.4 oz 01/15/18 01/16/18 01/17/18 06:59 06:59 06:59 Intake Total 420 1494 Output Total 300 1180 Balance 120 314 - Labs Result Diagrams: 01/16/18 04:23 01/16/18 04:23 Troponin/CKMB CK-MB (CK-2) 1.6 ng/mL (0-6.6) 01/15/18 00:24 Troponin I 0.074 ng/mL (< 0.028) H 01/15/18 05:42 - Assessment/Plan Pt. seen and eval. by me. I agree with the A/P by the MECHANICAL DRAWING TEACHER. Still not diuresing very well. He has chronic Kidney dz. I will try one dose of metalazone to see if the output will increase. The BP may decrease and if so then the medications will need to be further adjusted.
[2018-01-16] MEDS ORDERED: Metolazone 5 MG TAB PO SCH (18:45)
[2018-01-16] MEDS: Gabapentin 100 MG CAP PO SCH (20:35)
[2018-01-16] MEDS: Carvedilol 3.125 MG TAB PO SCH (20:36)
[2018-01-17] MEDS: Furosemide 40 MG/4 ML VIAL SLOW IVP SCH ×2 (05:27→15:02)
[2018-01-17 05:32] LABS: Albumin 3.8 g/dL (3.4-4.8); Anion Gap 11 mmol/L (10-20); BUN (Urea Nitrogen) 30 mg/dL (8.4-25.7); BUN/Creatinine Ratio 20.27; Calc. Creatinine Clearance 70 mL/min (70-130); Calcium 8.6 mg/dL (7.8-10.44); Carbon Dioxide 31 mmol/L (23-31); Chloride 97 mmol/L (98-107); Estimated GFR-MDRD 46; Glucose 102 mg/dL (83-110); Magnesium 2.4 mg/dL (1.6-2.6); Phosphorus 3.4 mg/dL (2.3-4.7); Potassium 4.1 mmol/L (3.5-5.1); Sodium 135 mmol/L (136-145)
[2018-01-17] MEDS: Mometasone/Formoterol 120 PUFF INHALER INH SCH ×2 (07:47→19:33)
[2018-01-17] MEDS: Ferrous Sulfate 325 MG TAB PO SCH (09:49)
[2018-01-17] MEDS: Aspirin 81 mg Enteric Coated Tablet PO SCH (09:49)
[2018-01-17] MEDS: Carvedilol 3.125 MG TAB PO SCH ×2 (09:49→20:00)
[2018-01-17] MEDS: Docusate 100 MG CAP PO SCH ×2 (09:49→20:00)
[2018-01-17] MEDS: Enoxaparin Sodium 40 MG/0.4 ML SYRINGE SC SCH (09:50)
[2018-01-17] MEDS: Finasteride 5 MG TAB PO SCH (09:50)
[2018-01-17] MEDS: Magnesium Oxide 250 MG TAB PO SCH ×2 (09:51→19:59)
[2018-01-17] MEDS: Folic Acid 1 MG TAB PO SCH (09:51)
[2018-01-17] MEDS: guaiFENesin ER 600 MG TAB PO SCH ×2 (09:51→20:00)
[2018-01-17] MEDS: Lisinopril 5 MG TAB PO SCH (09:51)
[2018-01-17] MEDS: predniSONE 20 MG TAB PO SCH (09:52)
[2018-01-17] MEDS: Saccharomyces boulardii 250 MG CAP PO SCH (09:52)
[2018-01-17] MEDS: Rosuvastatin 10 MG TAB PO SCH (09:52)
--- NOTE | 2018-01-17 13:49 | PDOC.CTH ---
<Lizeth Spears - Last Filed: 01/17/18 13:48> Cardiology Progress Note - Subjective The pt seen and examined. No overnight events. No cardiac complaints. He stated he did not void much after taking Metolazone yesterday, voided 2L this AM. - Objective Vital Signs Temp Pulse Pulse Pulse Resp BP BP 01/17/18 11:54 98.5 F 69 20 01/17/18 10:54 85 18 01/17/18 10:27 78 76 93/52 L 140/62 01/17/18 09:41 98.2 F 85 18 01/17/18 07:53 01/17/18 07:51 64 16 01/17/18 07:47 64 18 01/17/18 04:00 97.6 F 74 17 BP Pulse Ox Pulse Ox Pulse Ox 01/17/18 11:54 119/56 L 93 L 01/17/18 10:54 93 L 01/17/18 10:27 92 L 92 L 01/17/18 09:41 114/53 L 92 L 01/17/18 07:53 94 L 01/17/18 07:51 94 L 01/17/18 07:47 94 L 01/17/18 04:00 146/63 H 96 Weight 269 lb 3 oz 01/16/18 01/17/18 01/18/18 06:59 06:59 06:59 Intake Total 1494 1310 480 Output Total 1180 1940 Balance 314 -630 480 - Physical Examination General/Neuro: alert & oriented x3 Lungs: other: (diminished at bases) Heart: RRR Abdomen: soft Extremities: other: (No edema; wearing compression stockings) - Telemetry Telemetry Rhythm: SR 80s - Labs Result Diagrams: 01/16/18 04:23 01/17/18 04:42 Troponin/CKMB CK-MB (CK-2) 1.6 ng/mL (0-6.6) 01/15/18 00:24 Troponin I 0.074 ng/mL (< 0.028) H 01/15/18 05:42 - Assessment/Plan 1. Acute on chronic diastolic HF - stable with Lasix 40mg IV BID, Bblocker and CHRISTINE; cont.to monitor 2. Acute bronchitis - on Antibiotics; managed by hand mixer/PCP 3. CAD with 50% stenosis in RCA in 2013 - stable 4. HTN - stable with current med; cont. to monitor 5. CKD - stable; 6. Obese - Weight management education given to the pt and family 7. Sleep Apnea - the pt and family report that he was diagnosed severe Sleep apnea and need Cpap at HS. MAR reviewed * Echo on 01/16/18 showed EF 50-55%, grade I diastolic dysfunction, mod-severe dilated LA, mild JOAN, mild TR. Review of Systems - Review of Systems Constitutional: reports: weakness EENTM: reports: no symptoms reported Respiratory: reports: no symptoms reported Cardiac (ROS): reports: no symptoms reported ABD/GI: reports: no symptoms reported : reports: no symptoms reported Musculoskeletal: reports: joint pain <Frances Galloway - Last Filed: 01/17/18 17:42> Cardiology Progress Note - Objective Vital Signs Temp Pulse Pulse Pulse Resp BP BP 01/17/18 16:45 97.8 F 73 17 01/17/18 14:35 72 18 01/17/18 11:54 98.5 F 69 20 01/17/18 10:54 85 18 01/17/18 10:27 78 76 93/52 L 140/62 01/17/18 09:41 98.2 F 85 18 01/17/18 07:53 01/17/18 07:51 64 16 01/17/18 07:47 64 18 BP Pulse Ox Pulse Ox Pulse Ox 01/17/18 16:45 117/56 L 93 L 01/17/18 14:35 93 L 01/17/18 11:54 119/56 L 93 L 01/17/18 10:54 93 L 01/17/18 10:27 92 L 92 L 01/17/18 09:41 114/53 L 92 L 01/17/18 07:53 94 L 01/17/18 07:51 94 L 01/17/18 07:47 94 L Weight 269 lb 3 oz 01/16/18 01/17/18 01/18/18 06:59 06:59 06:59 Intake Total 1494 1310 480 Output Total 1180 1940 Balance 314 -225 480 - Labs Result Diagrams: 01/16/18 04:23 01/17/18 04:42 Troponin/CKMB CK-MB (CK-2) 1.6 ng/mL (0-6.6) 01/15/18 00:24 Troponin I 0.074 ng/mL (< 0.028) H 01/15/18 05:42 - Assessment/Plan Pt. seen and eval. by me. I agree with the A/P by the [employer]. Chest clear, RRR. Mild edema. Continue diuretics. Prob. home in 1-2 days.
--- NOTE | 2018-01-17 14:01 | PRG ---
DATE OF SERVICE: 01/17/2018 SERVICE: Pulmonary Medicine. INTERVAL HISTORY: The patient is doing great from a respiratory standpoint. He is not back to [facility] yet, but does feel much improved. He says there is no chest pain, nausea, vomiting, fevers or ch ills. He is able to get a little bit of rest last night. OBJECTIVE: VITAL SIGNS: Afebrile, pulse 69, blood pressure 119/56, respirations 20, saturation 93% on 2 liters nasal cannula. GENERAL: The patient is awake, alert, no apparent distress. LUNGS: Decent air entry. Dependent crackles are minimal. There is no prolonged expiratory phase or wheezing today. Rhonchi have cleared. HEART: Normal rate, regular. ABDOMEN: Soft, nontender, nondistended. Bowel sounds are positive. MUSCULOSKELETAL: No cyanosis or clubbing. There is no pitting in the bilateral lower extremities. NEUROLOGIC: Nonfocal. LABORATORY DATA: Creatinine 1.48 and decreasing. BUN is stable at 30, bicarbonate 31. Basic metabo lic profile is otherwise unremarkable. Magnesium and phosphorus fall within the normal limits. IMAGING: Echocardiogram demonstrates 50%-55% ejection fraction with diastolic dysfunction. Left atr ium is moderately to severely dilated. RV size and function is normal. ASSESSMENT: 1. Acute hypoxic respiratory failure. 2. Acute on chronic diastolic heart failure. 3. Restrictive lung disease secondary to body habitus. 4. Acute bronchitis. 5. Obstructive sleep apnea. DISCUSSION AND PLAN: We will continue to diurese the patient to euvolemia. At this point, the patie nt is likely stable for transition out of the hospital from a purely lung standpoint, but he would li ke to stick around to get a little bit more water off, which I think is reasonable. At this point, jerica king has no further requirements for inpatient Pulmonary or Critical Care opinion, and I will sign off. Please call with additional questions or concerns moving forward.
[2018-01-17] MEDS: Azithromycin 250 MG TAB PO SCH (15:02)
[2018-01-17] MEDS: Gabapentin 100 MG CAP PO SCH (19:59)
--- NOTE | 2018-01-17 22:18 | PDOC.PN ---
- Subjective Encounter Start Date: 01/17/18 Encounter Start Time: 10:30 Patient seen and examined for CHF. SOB improving. No new complaints. No overnight events - Objective Resuscitation Status: Resuscitation Status FULL:Full Resuscitation MAR Reviewed: Yes Vital Signs & Weight: Vital Signs (12 hours) Temp Pulse Pulse Pulse Resp BP BP 01/17/18 20:00 98.6 F 69 16 01/17/18 19:30 69 16 01/17/18 19:21 98.6 F 80 18 01/17/18 16:45 97.8 F 73 17 01/17/18 14:35 72 18 01/17/18 11:54 98.5 F 69 20 01/17/18 10:54 85 18 01/17/18 10:27 78 76 93/52 L 140/62 BP BP Pulse Ox Pulse Ox Pulse Ox 01/17/18 20:00 01/17/18 19:30 01/17/18 19:21 119/55 L 91 L 01/17/18 16:45 117/56 L 93 L 01/17/18 14:35 93 L 01/17/18 11:54 119/56 L 93 L 01/17/18 10:54 93 L 01/17/18 10:27 92 L 92 L Weight Weight 269 lb 3 oz I&O: 01/16/18 01/17/18 01/18/18 06:59 06:59 06:59 Intake Total 1494 1310 2320 Output Total 1180 1940 1950 Balance 314 -630 370 Result Diagrams: 01/18/18 04:42 01/18/18 04:42 EKG Reviewed by me: Yes (Tele SR) Phys Exam - Physical Examination Constitutional: NAD Respiratory: no wheezing, no rhonchi Cardiovascular: RRR, no rub Gastrointestinal: soft, non-tender, positive bowel sounds Musculoskeletal: edema present (improving) Neurological: moves all 4 limbs Dx/Plan (1) Acute on chronic diastolic heart failure Code(s): I50.33 - ACUTE ON CHRONIC DIASTOLIC (CONGESTIVE) HEART FAILURE Status : Acute Comment: on IV Lasix with fluid restriction, Spironolactone on hold due to low BP (2) Acute bronchitis Code(s): J20.9 - ACUTE BRONCHITIS, UNSPECIFIED Status: Acute Comment: on PO Azithromycin with Steroids (3) CKD (chronic kidney disease) stage 3, GFR 30-59 ml/min Code(s): N18.3 - CHRONIC KIDNEY DISEASE, STAGE 3 (MODERATE) Status: Chronic (4) Elevated troponin Code(s): R74.8 - ABNORMAL LEVELS OF OTHER SERUM ENZYMES Status: Acute Comment: due to CHF (5) CAD (coronary artery disease) Code(s): I25.10 - ATHSCL HEART DISEASE OF [place] CORONARY ARTERY W/O ANG PCTRS Status: Chronic Comment: on low dose Coreg and Lisinopril (6) Hypertension Code(s): I10 - ESSENTIAL (PRIMARY) HYPERTENSION Status: Chronic Comment: BP on lower side (7) Obesity (BMI 30-39.9) Code(s): E66.9 - OBESITY, UNSPECIFIED Status: Chronic Comment: Counselled. - Plan continue antibiotics, respiratory therapy, out of bed/ambulate, DVT proph w/ lovenox, DVT proph w/SCDs Cont diuretics with current dose of Coreg/Lisinopril -: Cont fluid restriction -: Cont current meds as below Review of Systems - Review of Systems Constitutional: negative: fever, chills, sweats, weakness, malaise, other Gastrointestinal: negative: Nausea, Vomiting, Abdominal Pain, Diarrhea, Constipation, Melena, Hematochezia, Other - Medications/Allergies Allergies/Adverse Reactions: Allergies Allergy/AdvReac Type Severity Reaction Status Date / Time Penicillins Allergy Verified 01/15/18 04:20 Medications: Current Medications Albuterol/Ipratropium (Duoneb) 3 ml NEB [id number] [facility] Last Admin: 01/17/18 19:30 Dose: 3 ml Albuterol/Ipratropium (Duoneb) 3 ml NEB [id number] PRN PRN Reason: SOB &/or Wheezing Aspirin (Ecotrin) 81 mg PO DAILY [facility] Last Admin: 01/17/18 09:49 Dose: 81 mg Azithromycin (Zithromax) 250 mg PO 1500 [facility] Stop: 01/18/18 15:01 Last Admin: 01/17/18 15:02 Dose: 250 mg Carvedilol (Coreg) 3.125 mg PO BID [facility] Last Admin: 01/17/18 20:00 Dose: 3.125 mg Docusate Sodium (Colace) 100 mg PO BID [facility] Last Admin: 01/17/18 20:00 Dose: 100 mg Enoxaparin Sodium (Lovenox) 40 mg SC 0900 [facility] Last Admin: 01/17/18 09:50 Dose: 40 mg Ferrous Sulfate (Feosol) 325 mg PO QAM-WM [facility] Last Admin: 01/17/18 09:49 Dose: 325 mg Finasteride (Proscar) 5 mg PO DAILY [facility] Last Admin: 01/17/18 09:50 Dose: 5 mg Folic Acid (Folvite) 1 mg PO DAILY [facility] Last Admin: 01/17/18 09:51 Dose: 1 mg Furosemide (Lasix) 40 mg SLOW IVP 0600,1400 [facility] Last Admin: 01/17/18 15:02 Dose: 40 mg Gabapentin (Neurontin) 200 mg PO HS [facility] Last Admin: 01/17/18 19:59 Dose: 200 mg Guaifenesin (Robitussin Sf) 200 mg PO Q4H PRN PRN Reason: Cough Last Admin: 01/16/18 11:48 Dose: 200 mg Guaifenesin (Mucinex) 600 mg PO Q12HR [facility] Last Admin: 01/17/18 20:00 Dose: 600 mg Lisinopril (Zestril) 5 mg PO DAILY [facility] Last Admin: 01/17/18 09:51 Dose: 5 mg Magnesium Oxide (Magnesium Oxide) 500 mg PO BID [facility] Last Admin: 01/17/18 19:59 Dose: 500 mg Mometasone Furoate/Formoterol Fumar (Dulera 200 Mcg/5 Mcg Inhaler) 2 puff INH BID-RT [facility] Last Admin: 01/17/18 19:33 Dose: 2 puff Pantoprazole Sodium (Protonix) 40 mg PO DAILY [facility] Last Admin: 01/17/18 09:52 Dose: 40 mg Prednisone (Prednisone) 20 mg PO DAILY [facility] Stop: 01/19/18 09:01 Last Admin: 01/17/18 09:52 Dose: 20 mg Rosuvastatin Calcium (Crestor) 10 mg PO DAILY [facility] Last Admin: 01/17/18 09:52 Dose: 10 mg Saccharomyces Boulardii (Florastor) 250 mg PO DAILY [facility] Last Admin: 01/17/18 09:52 Dose: 250 mg Sodium Chloride (Flush - Normal Saline) 10 ml IVF Q12HR [facility] Last Admin: 01/17/18 20:00 Dose: 10 ml Sodium Chloride (Flush - Normal Saline) 10 ml IVF PRN PRN PRN Reason: Saline Flush Last Admin: 01/16/18 05:17 Dose: 10 ml Spironolactone (Aldactone) 25 mg PO DAILY [facility] Last Admin: 01/16/18 09:45 Dose: Not Given Thiamine HCl (Thiamine) 100 mg PO DAILY [facility] Last Admin: 01/17/18 09:53 Dose: 100 mg Throat Lozenges (Cepastat Lozenges) 1 elzbieta PO Q2H PRN PRN Reason: Sore Throat Last Admin: 01/16/18 22:45 Dose: 1 elzbieta
[2018-01-18 05:35] LABS: Hemoglobin 13.6 g/dL (14.0-18.0); Platelet Count 161 thou/uL (130-400)
[2018-01-18] MEDS: Furosemide 40 MG/4 ML VIAL SLOW IVP SCH (05:41)
[2018-01-18 05:53] LABS: Albumin 3.8 g/dL (3.4-4.8); Anion Gap 14 mmol/L (10-20); BUN (Urea Nitrogen) 33 mg/dL (8.4-25.7); BUN/Creatinine Ratio 23.08; Calc. Creatinine Clearance 72 mL/min (70-130); Carbon Dioxide 29 mmol/L (23-31); Chloride 94 mmol/L (98-107); Estimated GFR-MDRD 48; Glucose 153 mg/dL (83-110); Magnesium 2.3 mg/dL (1.6-2.6); Phosphorus 3.7 mg/dL (2.3-4.7); Potassium 3.9 mmol/L (3.5-5.1); Sodium 133 mmol/L (136-145)
[2018-01-18] MEDS: Mometasone/Formoterol 120 PUFF INHALER INH SCH ×2 (07:10→19:16)
[2018-01-18] MEDS: Ferrous Sulfate 325 MG TAB PO SCH (09:07)
[2018-01-18] MEDS: Docusate 100 MG CAP PO SCH ×2 (09:08→20:22)
[2018-01-18] MEDS: Enoxaparin Sodium 40 MG/0.4 ML SYRINGE SC SCH (09:08)
[2018-01-18] MEDS: Carvedilol 3.125 MG TAB PO SCH ×2 (09:08→20:22)
[2018-01-18] MEDS: Aspirin 81 mg Enteric Coated Tablet PO SCH (09:08)
[2018-01-18] MEDS: Saccharomyces boulardii 250 MG CAP PO SCH (09:10)
[2018-01-18] MEDS: Rosuvastatin 10 MG TAB PO SCH (09:10)
[2018-01-18] MEDS: guaiFENesin ER 600 MG TAB PO SCH ×2 (09:11→20:22)
[2018-01-18] MEDS: Lisinopril 5 MG TAB PO SCH (09:11)
[2018-01-18] MEDS: Magnesium Oxide 250 MG TAB PO SCH ×2 (09:11→20:20)
[2018-01-18] MEDS: predniSONE 20 MG TAB PO SCH (09:11)
[2018-01-18] MEDS: Folic Acid 1 MG TAB PO SCH (09:11)
[2018-01-18] MEDS: Finasteride 5 MG TAB PO SCH (10:08)
[2018-01-18] MEDS: Potassium Chloride 20 MEQ TAB PO SCH (13:33)
--- NOTE | 2018-01-18 13:46 | PDOC.CTH ---
<Lizeth Spears - Last Filed: 01/18/18 13:45> Cardiology Progress Note - Subjective The pt seen and examined. No overnight events. No cardiac complaints. Wearing wrist braces for RA - Objective Vital Signs Temp Pulse Resp BP BP Pulse Ox 01/18/18 11:34 98 F 86 19 147/62 H 98 01/18/18 10:53 90 16 92 L 01/18/18 09:11 91 01/18/18 08:55 97.7 F 90 16 102/55 L 100 01/18/18 07:15 92 L 01/18/18 07:13 77 16 92 L 01/18/18 07:10 77 16 92 L 01/18/18 04:00 98.2 F 72 18 106/56 L 91 L Weight 268 lb 9.6 oz 01/17/18 01/18/18 01/19/18 06:59 06:59 06:59 Intake Total 1310 2840 Output Total 1940 2925 Balance -630 -85 - Physical Examination General/Neuro: alert & oriented x3 Neck: no JVD present Lungs: other: (coarses and diminished at bases) Heart: RRR Abdomen: soft Extremities: other: (no edema with TEDs) - Telemetry Telemetry Rhythm: SR - Labs Result Diagrams: 01/18/18 04:42 01/18/18 04:42 Troponin/CKMB CK-MB (CK-2) 1.6 ng/mL (0-6.6) 01/15/18 00:24 Troponin I 0.074 ng/mL (< 0.028) H 01/15/18 05:42 - Assessment/Plan 1. Acute on chronic diastolic HF - stable with Lasix 40mg IV BID, Bblocker and CHRISTINE; change Lasix from IV to PO 40mg BID; cont.to monitor 2. Acute bronchitis - on Antibiotics; managed by de alcoholizer/PCP 3. CAD with 50% stenosis in RCA in 2013 - stable 4. HTN - stable with current med; cont. to monitor 5. CKD - stable; 6. Obese - Weight management education given to the pt and family 7. Sleep Apnea - the pt and family report that he was diagnosed severe Sleep apnea and need Cpap at HS. MAR reviewed * Echo on 01/16/18 showed EF 50-55%, grade I diastolic dysfunction, mod-severe dilated LA, mild JOAN, mild TR. Review of Systems - Review of Systems Constitutional: reports: no symptoms reported EENTM: reports: no symptoms reported Respiratory: reports: no symptoms reported Cardiac (ROS): reports: no symptoms reported ABD/GI: reports: no symptoms reported : reports: no symptoms reported <Frances Galloway - Last Filed: 01/19/18 21:14> Cardiology Progress Note - Objective Vital Signs Temp Pulse Resp BP Pulse Ox 01/19/18 12:00 97 F L 75 16 114/58 L 99 01/19/18 10:48 57 L 16 01/19/18 10:44 91 L 01/19/18 10:43 57 L 16 Weight 265 lb 4.8 oz 01/18/18 01/19/18 01/20/18 06:59 06:59 06:59 Intake Total 2840 1350 Output Total 2925 2505 Balance -85 -1155 - Labs Result Diagrams: 01/18/18 04:42 01/19/18 04:52 Troponin/CKMB CK-MB (CK-2) 1.6 ng/mL (0-6.6) 01/15/18 00:24 Troponin I 0.074 ng/mL (< 0.028) H 01/15/18 05:42 - Assessment/Plan Pt. seen and eval. by me. I agree with the A/P by the [employer]BOR PRESS OPERATOR.Prob. home in next day or so.
[2018-01-18] MEDS: Azithromycin 250 MG TAB PO SCH (14:34)
[2018-01-18] MEDS: Furosemide 40 MG TAB PO SCH (14:34)
--- NOTE | 2018-01-18 17:24 | PDOC.PN ---
- Subjective Encounter Start Date: 01/18/18 Encounter Start Time: 10:30 Patient seen and examined for CHF. Diuresing well per RN. No CP/Palpitations. No overnight events - Objective Resuscitation Status: Resuscitation Status FULL:Full Resuscitation MAR Reviewed: Yes Vital Signs & Weight: Vital Signs (12 hours) Temp Pulse Resp BP Pulse Ox 01/18/18 16:04 98 F 79 18 107/55 L 98 01/18/18 14:03 69 18 95 01/18/18 11:34 98 F 86 19 147/62 H 98 01/18/18 10:53 90 16 92 L 01/18/18 09:11 91 01/18/18 08:55 97.7 F 90 16 102/55 L 100 01/18/18 07:15 92 L 01/18/18 07:13 77 16 92 L 01/18/18 07:10 77 16 92 L Weight Weight 371 lb 11.19 oz I&O: 01/17/18 01/18/18 01/19/18 06:59 06:59 06:59 Intake Total 1310 2840 Output Total 1940 2925 Balance -630 -85 Result Diagrams: 01/18/18 04:42 01/18/18 04:42 EKG Reviewed by me: Yes (Tele SR) Phys Exam - Physical Examination Constitutional: NAD Respiratory: no wheezing, no rhonchi Cardiovascular: RRR, no rub Gastrointestinal: soft, non-tender, positive bowel sounds Musculoskeletal: edema present (improving) Neurological: moves all 4 limbs Dx/Plan (1) Acute on chronic diastolic heart failure Code(s): I50.33 - ACUTE ON CHRONIC DIASTOLIC (CONGESTIVE) HEART FAILURE Status : Acute Comment: on IV Lasix with fluid restriction, Spironolactone on hold due to low BP (2) Acute bronchitis Code(s): J20.9 - ACUTE BRONCHITIS, UNSPECIFIED Status: Acute Comment: on PO Azithromycin with Steroids (3) CKD (chronic kidney disease) stage 3, GFR 30-59 ml/min Code(s): N18.3 - CHRONIC KIDNEY DISEASE, STAGE 3 (MODERATE) Status: Chronic (4) Elevated troponin Code(s): R74.8 - ABNORMAL LEVELS OF OTHER SERUM ENZYMES Status: Acute Comment: due to CHF (5) CAD (coronary artery disease) Code(s): I25.10 - ATHSCL HEART DISEASE OF [place] CORONARY ARTERY W/O ANG PCTRS Status: Chronic Comment: on low dose Coreg and Lisinopril (6) Hypertension Code(s): I10 - ESSENTIAL (PRIMARY) HYPERTENSION Status: Chronic (7) Obesity (BMI 30-39.9) Code(s): E66.9 - OBESITY, UNSPECIFIED Status: Chronic Comment: Counselled. - Plan DVT proph w/SCDs * DC Lovenox - Patient ambulating * cont Lasix IV * AM labs * Cont Coreg * Cont low dose Lisinopril * Cont other meds as below * Cont low dose Prednisone Review of Systems - Medications/Allergies Allergies/Adverse Reactions: Allergies Allergy/AdvReac Type Severity Reaction Status Date / Time Penicillins Allergy Verified 01/15/18 04:20 Medications: Current Medications Albuterol/Ipratropium (Duoneb) 3 ml NEB [id number] Last Admin: 01/18/18 14:03 Dose: 3 ml Albuterol/Ipratropium (Duoneb) 3 ml NEB [id number] PRN PRN Reason: SOB &/or Wheezing Aspirin (Ecotrin) 81 mg PO DAILY [facility] Last Admin: 01/18/18 09:08 Dose: 81 mg Carvedilol (Coreg) 3.125 mg PO BID [facility] Last Admin: 01/18/18 09:08 Dose: 3.125 mg Docusate Sodium (Colace) 100 mg PO BID [facility] Last Admin: 01/18/18 09:08 Dose: 100 mg Ferrous Sulfate (Feosol) 325 mg PO QAM-[facility] Last Admin: 01/18/18 09:07 Dose: 325 mg Finasteride (Proscar) 5 mg PO DAILY [facility] Last Admin: 01/18/18 10:08 Dose: 5 mg Folic Acid (Folvite) 1 mg PO DAILY [facility] Last Admin: 01/18/18 09:11 Dose: 1 mg Furosemide (Lasix) 40 mg PO 0900,1400 [facility] Last Admin: 01/18/18 14:34 Dose: 40 mg Gabapentin (Neurontin) 200 mg PO HS [facility] Last Admin: 01/17/18 19:59 Dose: 200 mg Guaifenesin (Robitussin Sf) 200 mg PO Q4H PRN PRN Reason: Cough Last Admin: 01/16/18 11:48 Dose: 200 mg Guaifenesin (Mucinex) 600 mg PO Q12HR [facility] Last Admin: 01/18/18 09:11 Dose: 600 mg Lisinopril (Zestril) 5 mg PO DAILY [facility] Last Admin: 01/18/18 09:11 Dose: 5 mg Magnesium Oxide (Magnesium Oxide) 500 mg PO BID [facility] Last Admin: 01/18/18 09:11 Dose: 500 mg Mometasone Furoate/Formoterol Fumar (Dulera 200 Mcg/5 Mcg Inhaler) 2 puff INH BID-RT [facility] Last Admin: 01/18/18 07:10 Dose: 2 puff Pantoprazole Sodium (Protonix) 40 mg PO DAILY [facility] Last Admin: 01/18/18 09:11 Dose: 40 mg Potassium Chloride (K-Dur) 20 meq PO 1200 [facility] Last Admin: 01/18/18 13:33 Dose: 20 meq Potassium Chloride (K-Dur) 20 meq PO QAM-WM [facility] Prednisone (Prednisone) 20 mg PO DAILY [facility] Stop: 01/19/18 09:01 Last Admin: 01/18/18 09:11 Dose: 20 mg Rosuvastatin Calcium (Crestor) 10 mg PO DAILY [facility] Last Admin: 01/18/18 09:10 Dose: 10 mg Saccharomyces Boulardii (Florastor) 250 mg PO DAILY [facility] Last Admin: 01/18/18 09:10 Dose: 250 mg Sodium Chloride (Flush - Normal Saline) 10 ml IVF Q12HR [facility] Last Admin: 01/18/18 09:13 Dose: 10 ml Sodium Chloride (Flush - Normal Saline) 10 ml IVF PRN PRN PRN Reason: Saline Flush Last Admin: 01/16/18 05:17 Dose: 10 ml Spironolactone (Aldactone) 25 mg PO DAILY [facility] Last Admin: 01/16/18 09:45 Dose: Not Given Thiamine HCl (Thiamine) 100 mg PO DAILY [facility] Last Admin: 01/18/18 09:11 Dose: 100 mg Throat Lozenges (Cepastat Lozenges) 1 elzbieta PO Q2H PRN PRN Reason: Sore Throat Last Admin: 01/16/18 22:45 Dose: 1 elzbieta
[2018-01-18] MEDS: Gabapentin 100 MG CAP PO SCH (20:20)
[2018-01-19 05:40] LABS: Albumin 3.8 g/dL (3.4-4.8); Anion Gap 13 mmol/L (10-20); BUN (Urea Nitrogen) 35 mg/dL (8.4-25.7); BUN/Creatinine Ratio 25.93; Calc. Creatinine Clearance 106 mL/min (70-130); Calcium 9.2 mg/dL (7.8-10.44); Carbon Dioxide 31 mmol/L (23-31); Chloride 95 mmol/L (98-107); Estimated GFR-MDRD 51; Glucose 102 mg/dL (83-110); Magnesium 2.6 mg/dL (1.6-2.6); Phosphorus 3.9 mg/dL (2.3-4.7); Potassium 4.4 mmol/L (3.5-5.1); Sodium 135 mmol/L (136-145)
[2018-01-19] MEDS ORDERED: Potassium Chloride 20 MEQ TAB PO SCH (08:00)
[2018-01-19] MEDS: Ferrous Sulfate 325 MG TAB PO SCH (09:42)
[2018-01-19] MEDS: Carvedilol 3.125 MG TAB PO SCH (09:43)
[2018-01-19] MEDS: Docusate 100 MG CAP PO SCH (09:43)
[2018-01-19] MEDS: Aspirin 81 mg Enteric Coated Tablet PO SCH (09:43)
[2018-01-19] MEDS: Furosemide 40 MG TAB PO SCH ×2 (09:44→13:01)
[2018-01-19] MEDS: predniSONE 20 MG TAB PO SCH (09:44)
[2018-01-19] MEDS: Saccharomyces boulardii 250 MG CAP PO SCH (09:44)
[2018-01-19] MEDS: Folic Acid 1 MG TAB PO SCH (09:44)
[2018-01-19] MEDS: Magnesium Oxide 250 MG TAB PO SCH (09:44)
[2018-01-19] MEDS: guaiFENesin ER 600 MG TAB PO SCH (09:44)
[2018-01-19] MEDS: Lisinopril 5 MG TAB PO SCH (09:44)
[2018-01-19] MEDS: Rosuvastatin 10 MG TAB PO SCH (09:44)
[2018-01-19] MEDS: Finasteride 5 MG TAB PO SCH (09:44)
[2018-01-19] MEDS: Mometasone/Formoterol 120 PUFF INHALER INH SCH (10:48)
[2018-01-19 12:56] VITALS: BP 114/58; TEMP 97
[2018-01-19] MEDS: Potassium Chloride 20 MEQ TAB PO SCH (13:01)
--- NOTE | 2018-01-19 18:08 | PDOC.CTH ---
<Lizeth Spears - Last Filed: 01/19/18 18:06> Cardiology Progress Note - Subjective The pt seen and examined. No overnight events. No cardiac complaints. He has walked around the floor without any cardiac complaints. - Objective Vital Signs Temp Pulse Pulse Pulse Resp BP BP 01/19/18 12:00 97 F L 75 16 01/19/18 10:48 57 L 16 01/19/18 10:44 01/19/18 10:43 57 L 16 01/19/18 08:58 84 86 148/64 H 118/53 L 01/19/18 08:15 98.2 F 57 L 16 01/19/18 08:13 98.2 F 76 18 BP Pulse Ox Pulse Ox Pulse Ox 01/19/18 12:00 114/58 L 99 01/19/18 10:48 01/19/18 10:44 91 L 01/19/18 10:43 01/19/18 08:58 92 L 94 L 01/19/18 08:15 98 01/19/18 08:13 119/57 L 98 Weight 265 lb 4.8 oz 01/18/18 01/19/18 01/20/18 06:59 06:59 06:59 Intake Total 2840 1350 Output Total 2925 2505 Balance -85 -1155 - Physical Examination General/Neuro: alert & oriented x3 Neck: no JVD present Lungs: other: (diminished at bases) Heart: RRR Abdomen: soft Extremities: other: (mild BLE edema with TEDs) - Telemetry Telemetry Rhythm: SR - Labs Result Diagrams: 01/18/18 04:42 01/19/18 04:52 Troponin/CKMB CK-MB (CK-2) 1.6 ng/mL (0-6.6) 01/15/18 00:24 Troponin I 0.074 ng/mL (< 0.028) H 01/15/18 05:42 - Assessment/Plan 1. Acute on chronic diastolic HF - stable with Lasix 40mg PO BID, Bblocker and CHRISTINE; cont.to monitor 2. Acute bronchitis - on Antibiotics; managed by ash collector/PCP 3. CAD with 50% stenosis in RCA in 2013 - stable 4. HTN - stable with current med; cont. to monitor 5. CKD - stable; 6. Obese - Weight management education given to the pt and family 7. Sleep Apnea - the pt and family report that he was diagnosed severe Sleep apnea and need Cpap at HS. MAR reviewed * Echo on 01/16/18 showed EF 50-55%, grade I diastolic dysfunction, mod-severe dilated LA, mild JOAN, mild TR. * From Cardiac standpoint, the pt is stable to d/c home. the pt will f/u with Dr Galloway' office within 2-4wks. Review of Systems - Review of Systems Constitutional: reports: no symptoms reported EENTM: reports: no symptoms reported Respiratory: reports: no symptoms reported Cardiac (ROS): reports: no symptoms reported ABD/GI: reports: no symptoms reported : reports: no symptoms reported Musculoskeletal: reports: no symptoms reported <Frances Galloway - Last Filed: 01/19/18 21:15> Cardiology Progress Note - Objective Vital Signs Temp Pulse Resp BP Pulse Ox 01/19/18 12:00 97 F L 75 16 114/58 L 99 01/19/18 10:48 57 L 16 01/19/18 10:44 91 L 01/19/18 10:43 57 L 16 Weight 265 lb 4.8 oz 01/18/18 01/19/18 01/20/18 06:59 06:59 06:59 Intake Total 2840 1350 Output Total 2925 2505 Balance -85 -1155 - Labs Result Diagrams: 01/18/18 04:42 01/19/18 04:52 Troponin/CKMB CK-MB (CK-2) 1.6 ng/mL (0-6.6) 01/15/18 00:24 Troponin I 0.074 ng/mL (< 0.028) H 01/15/18 05:42 - Assessment/Plan Pt. seen and eval. by me. I agree with the A/P by the GATE AGENT. He is doing better today and ready for d/c. I will see him back in The next 1-2 weeks in the office.
--- NOTE | 2018-01-20 14:30 | DIS ---
DATE OF DISCHARGE: 01/19/2018 DISCHARGE DISPOSITION: Home. FOLLOWUP: 1. Follow up with primary care physician, Dr. Goncalves, in 1 week. 2. Follow up with Cardiology, Dr. Galloway. 3. Follow up with Dr. Brown and [facility]. ALLERGIES: The patient is allergic to PENICILLIN. DISCHARGE MEDICATIONS: Are same as admission medications. No changes were made. BRIEF HOSPITAL COURSE: The patient is a 77-year-old male with chronic diastolic heart failure and hy pertension, who presented to the hospital with shortness of breath, cough, and wheezing. Please refe r to the history and physical dated 01/15/2018 for further details. The patient was admitted to the telemetry unit with a diagnosis of acute on chronic diastolic heart failure along with acute bronchit is. He was seen by Cardiology as well as Pulmonology. He showed good improvement with IV diuretics as well as steroids and azithromycin. He completed steroids and antibiotics during this hospital sta y. He has been cleared by consultants for discharge. FINAL DIAGNOSES: 1. Acute on chronic diastolic heart failure exacerbation, improved. Spironolactone will be resumed at discharge. It was held due to blood pressure on the lower side. 2. Acute bronchitis, improved with azithromycin and steroids. 3. Chronic kidney disease, stage 3. 4. Elevated troponins, secondary to congestive heart failure. 5. Coronary artery disease. 6. Hypertension. 7. Obesity with a BMI of 37. 8. PENICILLIN allergy. 9. Chronic macro anemia. His vitamin B12 last year was 448. A repeat vitamin B12 check is recommen ded with the next blood draw. Primary care physician advised to follow. SIGNIFICANT LABORATORIES: BNP 208, troponin 0.074.
== END 2018-01-19 13:28 | disposition home or self-care (01) | DRG 291 ==
LOC: ERS 23:54 → 2NO 01-15 02:00
PROVIDERS: ADMIT Hospitalist; ATTEND Hospitalist
DX: I13.0 Hypertensive heart and chronic kidney disease with heart failure and stage 1 through stage 4 chronic kidney disease, or unspecified chronic kidney disease (principal); I50.33 Acute on chronic diastolic (congestive) heart failure; J96.01 Acute respiratory failure with hypoxia; N18.3 Chronic kidney disease, stage 3 (moderate); F41.9 Anxiety disorder, unspecified; G47.33 Obstructive sleep apnea (adult) (pediatric); J20.9 Acute bronchitis, unspecified; I25.10 Atherosclerotic heart disease of native coronary artery without angina pectoris; E78.2 Mixed hyperlipidemia; E66.9 Obesity, unspecified; Z68.37 Body mass index [BMI] 37.0-37.9, adult; R74.8 Abnormal levels of other serum enzymes; Z87.891 Personal history of nicotine dependence; Z88.0 Allergy status to penicillin; Z79.82 Long term (current) use of aspirin; Z79.899 Other long term (current) drug therapy
CPT/HCPCS: 36415; 71045; 80048; 80053; 80069; 82553; 83605; 83735; 83880; 84484; 85014; 85018; 85025; 85049; 93005; 93306; 93798; 94640; 94664; 96374; A4216; J1650; J1940; J7506; J7620

== ENCOUNTER 2018-05-26 21:38 | Observation (INO) | payer MEDICARE ==
[2018-05-26 22:40] LABS: Troponin I 0.073 ng/mL (< 0.028)
[2018-05-27 00:46] LABS: Troponin I 0.076 ng/mL (< 0.028)
[2018-05-27] MEDS ORDERED: Ondansetron ODT 4 MG TAB SL PRN (01:01)
[2018-05-27] MEDS ORDERED: Acetaminophen 325 MG TAB PO PRN (01:01)
[2018-05-27] MEDS ORDERED: Ondansetron PF 4 MG/2 ML Vial IVP PRN (01:01)
[2018-05-27 01:02] VITALS: BMI 37.8
[2018-05-27] MEDS ORDERED: PROVENTIL INHALER 6.7 G (200 INHALATIONS) INH PRN (07:35)
[2018-05-27] MEDS ORDERED: Potassium Chloride 10 MEQ TAB PO PRN (07:35)
[2018-05-27 07:45] VITALS: BP 127/59; TEMP 97.7
[2018-05-27] MEDS ORDERED: Gabapentin 100 MG CAP PO SCH ×2 (07:45→21:00)
[2018-05-27 08:06] LABS: #Lymphocytes 0.6 thou/uL (1.20-3.40); #Monocytes 0.1 thou/uL (0.11-0.59); #Neutrophils 9.1 thou/uL (1.40-6.50); %Basophils 0.3 % (0.0-1.0); %Eosinophils 0.1 % (0.0-10.0); %Lymphocytes 6.4 % (21.0-51.0); %Monocytes 1.4 % (0.0-10.0); %Neutrophils 91.8 % (42.0-75.0); Mean Corpuscular HGB CONC 33.2 g/dL (32.0-36.0); Mean Corpuscular Hemoglobin 33.2 pg (27.0-31.0); Mean Platelet Volume 7.4 fL (7.4-10.4); Platelet Count 219 thou/uL (130-400); RBC Distribution Width 10.9 % (11.5-14.5); Red Blood Cell (RBC) Count 3.92 mill/uL (4.70-6.10); White Blood Cell (WBC) Count 9.9 thou/uL (4.8-10.8)
[2018-05-27 08:29] LABS: Anion Gap 13 mmol/L (10-20); BUN (Urea Nitrogen) 28 mg/dL (8.4-25.7); Calc. Creatinine Clearance 71 mL/min (70-130); Calcium 9.1 mg/dL (7.8-10.44); Carbon Dioxide 27 mmol/L (23-31); Chloride 95 mmol/L (98-107); Estimated GFR-MDRD 46; Glucose 265 mg/dL (83-110); Potassium 3.8 mmol/L (3.5-5.1); Sodium 131 mmol/L (136-145)
[2018-05-27] MEDS ORDERED: Multivitamin W/ Minerals 1 TAB PO SCH (09:00)
[2018-05-27] MEDS ORDERED: [UNRECOGNIZED DRUG - MIXTURE] PO SCH (09:00)
[2018-05-27] MEDS ORDERED: Calcitriol 0.25 MCG CAP PO SCH (09:00)
[2018-05-27] MEDS ORDERED: MAGNESIUM 500 MG PO SCH (09:00)
[2018-05-27] MEDS ORDERED: Carvedilol 25 MG TAB PO SCH (09:00)
[2018-05-27] MEDS ORDERED: Fish Oil 1,000 MG CAP PO SCH (09:00)
[2018-05-27] MEDS ORDERED: Docusate 100 MG CAP PO SCH (09:00)
[2018-05-27] MEDS ORDERED: Spironolactone 25 MG TAB PO SCH (09:00)
[2018-05-27] MEDS ORDERED: Magnesium Oxide 250 MG TAB PO SCH (09:00)
[2018-05-27] MEDS ORDERED: Torsemide 20 MG TAB PO SCH (09:00)
[2018-05-27] MEDS ORDERED: Mometasone/Formoterol 120 PUFF INHALER INH SCH (18:30)
[2018-05-27] MEDS ORDERED: Finasteride 5 MG TAB PO SCH (21:00)
[2018-05-27] MEDS ORDERED: Ubidecarenone 50 MG CAP PO SCH (21:00)
--- NOTE | 2018-05-28 13:59 | SS ---
SHORT STAY SUMMARY DATE OF ADMISSION: 05/26/2018 DATE OF DISCHARGE: 05/27/2018 PRIMARY CARE PHYSICIAN: Dr. Zach Goncalves CHIEF COMPLAINT: Cough and shortness of breath. HISTORY OF PRESENT ILLNESS: Mr. Ramirez is a pleasant 77-year-old male who had presented to the [facility] ER with cough and shortness of breath. He has a past medical history of chronic diastolic hear t failure, hypertension, history of COPD, and history of bronchitis. He had undergone chest x-ray, w hich was found to be negative. He was transferred to [facility] for further e valuation. Due to patient's symptoms, he was started on oxygen and DuoNeb treatments. His symptoms seemed to improve. On admission labs included WBC elevated at 13.8. He was afebrile, and estimated GFR was 43 with a creatinine of 1.57, he had a history of chronic kidney disease, stage 3. This seem ed to be his baseline, troponin was ordered and noted to be elevated at 0.066 to 0.076, these seemed to be where he was on previous admission back in 01/2018. BNP was noted to be 170.7. On previous ad mission, he was over 200. He was treated with IV Lasix, he had undergone an echocardiogram during th at time, which was found to be unremarkable with a normal EF. Patient was later discharged home to [facility] up with his computer numerical control operator, Dr. Galloway and his primary care physician. He was monitored closely in the ER, he had remained on his home medications. He was admitted overnight for close monitoring and observation of symptoms. He had remained on DuoNeb treatments and tolerated well. When seen in the morning, he had denied any chest pain, shortness of breath, or abdominal pain. He had a mild dry co ugh with no sputum production. He had no further complaints at this time and seemed at baseline. Ok s labs were rechecked, his creatinine did improve to 1.47, an estimated GFR of 46 was noted. This se emed to be his baseline. CBC showed a resolution of WBC at 9.9. Patient was stable for discharge th e night prior, however, due to it being in the middle of the night and his not able to get him f rom the ER. He was kept in observation status. He had remained in the hospital under observation [facility] for about 10 hours, he was seen and examined prior to discharge. Heart and lung sounds were jeanne ar, positive S1, S2. No murmurs noted. No edema was noted. He was asymptomatic at that time. Velma gonzalez signs remained stable with a blood pressure of 127/59, O2 saturations 92% on room air, and he remai yanick afebrile. He was deemed stable for discharge to home and was instructed to follow up with his PC P in 1 to 2 weeks. DISCHARGE DIAGNOSES: 1. Acute bronchitis, stable. 2. Chronic obstructive pulmonary disease, stable. 3. Chronic kidney disease, stage 3, stable. 4. Elevated troponin likely secondary to above. 5. Hypertension, stable. CONSULTATIONS: None. PROCEDURES: None. PERTINENT LABORATORY DATA AND DIAGNOSTIC FINDINGS: WBC 13.8, that improved to 9.9; RBC 3.92; hemoglo bin 13.0; platelet 219. Sodium 131; potassium 3.8; creatinine on admission 1.57, which improved to 1 .47; estimated GFR 46. Lactic acid 2.2, AST 13, ALT 16. Troponin ranged between 0.066 to 0.076, whi ch was his baseline, BNP 170.7. Chest x-ray unremarkable. DISCHARGE MEDICATIONS: 1. Protonix 40 mg oral daily. 2. Potassium chloride 10 mEq one tab oral as needed. 3. Multivitamin 1 tab oral daily. 4. Carvedilol 25 mg oral twice daily. 5. Torsemide 40 mg oral daily. 6. Spironolactone 25 mg oral daily. 7. Aspirin 81 mg oral at bedtime. 8. Colace 100 mg oral b.i.d. 9. CoQ10 of 400 mg oral at bedtime. 10. [place] oil/omega 3 fatty acid 1 capsule oral daily. 11. Magnesium 500 mg oral twice daily. 12. Gabapentin 100 mg oral daily. 13. Gabapentin 200 mg oral at bedtime. 14. Finasteride 5 mg oral at bedtime. 15. Symbicort 160/4.5 two puff inhalation twice daily. 16. Bi-Flex 1 tab oral daily. 17. Calcitriol 0.25 mcg oral daily. 18. ProAir HFA inhaler 2 puff inhalation every 6 hours as needed for shortness of breath. DISCHARGE CONDITION: Stable. DISCHARGE ACTIVITY: As tolerated. DISCHARGE DIET: Heart healthy. FOLLOWUP: The patient is to follow up with his PCP, Dr. Zach Goncalves in 1-2 weeks. DISPOSITION: Home on 05/27/2018.
== END 2018-05-27 11:10 | disposition home or self-care (01) ==
LOC: ERS 21:38 → 2SW 23:03
PROVIDERS: ADMIT Internal Medicine; ATTEND Internal Medicine
DX: J20.9 Acute bronchitis, unspecified (principal); J44.0 Chronic obstructive pulmonary disease with (acute) lower respiratory infection; I12.9 Hypertensive chronic kidney disease with stage 1 through stage 4 chronic kidney disease, or unspecified chronic kidney disease; N18.3 Chronic kidney disease, stage 3 (moderate); Z79.82 Long term (current) use of aspirin; Z79.899 Other long term (current) drug therapy; Z88.0 Allergy status to penicillin
CPT/HCPCS: 80048; 84484 ×2; 85025; 94640 ×2; 94760; 99285; G0378 ×2; 36415; J7620

== ENCOUNTER 2018-06-08 06:01 | Day surgery (SDC) | payer MEDICARE ==
[2018-06-07 09:55] VITALS: BMI 38.9
[2018-06-08] MEDS ORDERED: Levofloxacin 500 mg/D5W 100 ml Premix Bag ONE (06:53)
[2018-06-08] MEDS ORDERED: Fentanyl 100 MCG/2 ML VIAL ONE (07:26)
[2018-06-08] MEDS ORDERED: Albuterol Sulfate HFA (OR ONLY) ONE ×2 (07:26→07:28)
[2018-06-08] MEDS ORDERED: Bupivacaine/Epinephrine 0.25% 30 ML VIAL ONE (07:32)
[2018-06-08 07:44] LABS: Anion Gap 11 mmol/L (10-20); BUN (Urea Nitrogen) 32 mg/dL (8.4-25.7); Calc. Creatinine Clearance 67 mL/min (70-130); Calcium 9.3 mg/dL (7.8-10.44); Carbon Dioxide 34 mmol/L (23-31); Chloride 98 mmol/L (98-107); Estimated GFR-MDRD 42; Glucose 115 mg/dL (83-110); Potassium 3.8 mmol/L (3.5-5.1); Sodium 139 mmol/L (136-145)
[2018-06-08] MEDS ORDERED: Clindamycin/D5W 900 mg/50 ml Premix Bag ONE (08:32)
[2018-06-08] MEDS ORDERED: Bupivacaine HCl 0.5%/Epinephrine 1:200,000/PF 30 ml Vial ONE (08:47)
[2018-06-08] MEDS ORDERED: Bupivacaine PF 0.5% 30 ML VIAL ONE (08:47)
[2018-06-08] MEDS ORDERED: Lidocaine 1% PF 5 ML VIAL ONE (11:18)
[2018-06-08] MEDS ORDERED: PHENYLEPHRINE-NS 100 MCG/ML 10 ML SYRINGE ONE (11:18)
[2018-06-08] MEDS ORDERED: Succinylcholine Chloride 20 MG/ML 10 ml SYRINGE FS ONE (11:18)
[2018-06-08] MEDS ORDERED: Dexamethasone 20 MG/5 ML VIAL ONE (11:18)
[2018-06-08] MEDS ORDERED: Ondansetron PF 4 MG/2 ML Vial ONE (11:18)
[2018-06-08] MEDS ORDERED: PROPOFOL 200 MG/20 ML VIAL ONE (11:18)
[2018-06-08] MEDS ORDERED: ePHEDrine/0.9% NaCl/PF SYRINGE 50 mg/10 ml ONE (11:18)
--- NOTE | 2018-06-12 14:37 | OP ---
DATE OF PROCEDURE: 06/08/2018 PROCEDURE PERFORMED: Repair of right inguinal hernia. PREOPERATIVE DIAGNOSIS: Right inguinal hernia. POSTOPERATIVE DIAGNOSIS: Right inguinal hernia with multiple large cord lipoma. HISTORY: Mr. Ramirez is a 77-year-old man with a right inguinal hernia, discovered on examination by his primary care doctor and recommendation was made to proceed with repair. DESCRIPTION OF PROCEDURE: After informed consent was obtained and appropriate preoperative antibiotics were administered, the patient was taken to the operating room. He was placed in supine position and general anesthesia was administered. He was prepped and draped in a standard sterile fashion, and local anesthesia infused through skin and subcutaneous tissues overlying the right inguinal canal. Skin incision was made and dissection carried down to Zoë and Camper fascias, which were incised. The external oblique aponeurosis was cleared and incised in the direction of the fibers and the incision extended down through the external ring. The ilioinguinal nerve was noted to be coursing medially to the cord structures and appeared to be quite attenuated and was not in the dissection field. The external oblique aponeurosis was elevated off the underlying cord structures and the cord encircled at the level of the pubic tubercle with great difficulty as I was fairly able to encircle it with my fingers and my thumb and forefinger would not reach around to the cord structures. The patient was noted to have multiple large cord lipomas, which were dissected free of the underlying cord structures. The cremasteric muscles were divided using electrocautery and the lipoma was traced back toward the internal ring. Moderate-sized cord lipoma and several small cord lipomas were able to be dissected free and excised in this manner, but the largest cord lipoma became intricately intertwined with the venous plexus of the cord near the level of the internal canal and could not be dissected free without threatening the venous drainage of the cord structures. The decision was made to dunk this cord lipoma back into the preperitoneal space and repair the large hernia defect. Extra-large plug and patch was obtained and the remaining cord lipoma dunked back through the internal ring. There was no peritoneal sac identified among the cord structures consistent with a true hernia. The extra-large plug was placed into the internal ring, but was too small to keep the cord lipoma from protruding around it. Therefore, another patch was obtained and folded over the extra-large plug and secured with a suture. This extra-large plug was then large enough to keep the cord lipoma inside the internal ring. This was then secured to the internal oblique at a couple of locations to keep it from extruding. The patch was then placed into the inguinal canal and secured to the pubic tubercle inferiorly to the shelving edge of the inguinal ligament laterally and tacked down at intervals to the internal oblique medially. The ends were folded around the cord structure and secured to allow passage of the cord structures and a fingertip. An ON-Q pain pump was obtained and placed into the inguinal canal and secured to the skin with a drop of Dermabond. The wound was irrigated and examined for hemostasis, which was excellent. Additional local anesthesia was infused into the internal oblique to assist with postoperative pain control, and the external oblique aponeurosis reapproximated over the inguinal canal, taking care not to pull up the cord contents or the ON-Q pain pump into the closure. The remainder of the local anesthesia was infused into the subcutaneous tissues to assist with postoperative pain management. Zoë fascia was reapproximated at interval with 3-0 Monocryl suture and the skin was closed with a running subcuticular 4-0 Monocryl suture. Incision was dressed with Dermabond and the ON-Q pain pump secured to the skin with Tegaderm. The patient was extubated and taken to Recovery in good condition. ESTIMATED BLOOD LOSS: Minimal. COMPLICATIONS: There were no complications. SPECIMEN: Cord lipoma. Job ID: [id number]
== END 2018-06-08 13:05 | disposition home health service (06) ==
LOC: SDC 06:01
PROVIDERS: ATTEND Surgery
PROC: 0YU50JZ Supplement Right Inguinal Region with Synthetic Substitute, Open Approach (ICD-10-PCS; principal; 2018-06-08)
DX: K40.90 Unilateral inguinal hernia, without obstruction or gangrene, not specified as recurrent (principal); D17.6 Benign lipomatous neoplasm of spermatic cord; E78.5 Hyperlipidemia, unspecified; I13.0 Hypertensive heart and chronic kidney disease with heart failure and stage 1 through stage 4 chronic kidney disease, or unspecified chronic kidney disease; I50.40 Unspecified combined systolic (congestive) and diastolic (congestive) heart failure; N18.3 Chronic kidney disease, stage 3 (moderate); J44.9 Chronic obstructive pulmonary disease, unspecified; I25.10 Atherosclerotic heart disease of native coronary artery without angina pectoris; Z87.891 Personal history of nicotine dependence; Z79.82 Long term (current) use of aspirin; Z79.899 Other long term (current) drug therapy; Z88.0 Allergy status to penicillin; Z88.2 Allergy status to sulfonamides; Z88.8 Allergy status to other drugs, medicaments and biological substances; Z98.890 Other specified postprocedural states
CPT/HCPCS: 49505; 80048; 88304; A4306; C1781; J0131; J0670; J1100; J1956; J2001; J2405; J2704; J3010; J3490; S0020

== ENCOUNTER 2018-07-06 10:40 | Inpatient (IN) | payer MEDICARE ==
[2018-07-06] MEDS ORDERED: Midazolam HCl 2 mg/2 ml Vial ONE (11:41)
[2018-07-06] MEDS ORDERED: Fentanyl 100 MCG/2 ML VIAL ONE ×2 (11:41→13:32)
[2018-07-06] MEDS ORDERED: Clindamycin/D5W 600 mg/50 ml Premix Bag ONE (12:02)
[2018-07-06 12:05] LABS: #Eosinphils 0.3 thou/uL (0.0-0.7); #Lymphocytes 1.5 thou/uL (1.20-3.40); #Monocytes 0.9 thou/uL (0.11-0.59); #Neutrophils 5.3 thou/uL (1.40-6.50); %Basophils 0.5 % (0.0-1.0); %Eosinophils 4.1 % (0.0-10.0); %Lymphocytes 18.5 % (21.0-51.0); %Monocytes 10.6 % (0.0-10.0); %Neutrophils 66.3 % (42.0-75.0); Hemoglobin 13.3 g/dL (14.0-18.0); Mean Corpuscular HGB CONC 34.7 g/dL (32.0-36.0); Mean Corpuscular Hemoglobin 34.4 pg (27.0-31.0); Mean Platelet Volume 7.4 fL (7.4-10.4); Platelet Count 200 thou/uL (130-400); RBC Distribution Width 11.5 % (11.5-14.5); Red Blood Cell (RBC) Count 3.87 mill/uL (4.70-6.10); White Blood Cell (WBC) Count 8.1 thou/uL (4.8-10.8)
[2018-07-06] MEDS ORDERED: HYDROcodone/Acetaminophen 10/325 mg Tablet PO PRN ×2 (12:23)
[2018-07-06] MEDS ORDERED: Promethazine HCl 25 MG/ML VIAL IM PRN (12:23)
[2018-07-06] MEDS ORDERED: Ropivacaine 0.2% 550 ML 550 ML NERVE BLCK SCH (12:23)
[2018-07-06] MEDS ORDERED: Zolpidem Tartrate 5 MG TAB PO PRN (12:23)
[2018-07-06] MEDS ORDERED: Ondansetron PF 4 MG/2 ML Vial IVP PRN (12:23)
[2018-07-06] MEDS ORDERED: traMADol HCl 50 MG TAB PO PRN ×2 (12:23)
[2018-07-06] MEDS ORDERED: Fentanyl 100 MCG/2 ML VIAL IV PRN (12:24)
[2018-07-06 12:31] LABS: Anion Gap 16 mmol/L (10-20); BUN (Urea Nitrogen) 38 mg/dL (8.4-25.7); Calc. Creatinine Clearance 0 mL/min (70-130); Calcium 9.1 mg/dL (7.8-10.44); Carbon Dioxide 29 mmol/L (23-31); Chloride 98 mmol/L (98-107); Estimated GFR-MDRD 40; Glucose 123 mg/dL (83-110); Potassium 3.7 mmol/L (3.5-5.1); Sodium 139 mmol/L (136-145)
[2018-07-06] MEDS ORDERED: Bupivacaine PF 0.5% 30 ML VIAL ONE (13:11)
[2018-07-06] MEDS ORDERED: Betamet Acet/Betamet Na Ph 30 MG/5 ML VIAL ONE (13:11)
[2018-07-06] MEDS ORDERED: Bacitracin Zinc Ointment 30 gm TUBE ONE (13:11)
[2018-07-06 13:28] LABS: Bilirubin Negative (Negative); Blood, Urine Negative (Negative); Clarity CLEAR (Clear); Glucose, Urine (Dipstick) Negative (Negative); Leukocyte Negative (Negative); Nitrite Negative (Negative); Protein, Urine (Dipstick) Negative (Neg-Trace); Specific Gravity, Urine 1.017 (1.002-1.036); Urobilinogen 0.2 mg/dL (0.2-1.0)
[2018-07-06 13:30] LABS: Bacteria/HPF None Seen HPF (None Seen); Hyaline Casts/LPF 0-3 HYALINE CAST LPF (0-3 Hyaline); RBC/HPF None Seen HPF (0-3); Squamous Epithelial None Seen HPF (0-3); WBC/HPF None Seen HPF (0-3)
[2018-07-06] MEDS ORDERED: Phenylephrine HCL 10 MG/ML VIAL ONE (13:32)
[2018-07-06] MEDS ORDERED: Albuterol Sulfate HFA (OR ONLY) ONE (13:49)
[2018-07-06] MEDS ORDERED: HYDROcodone/Acetaminophen 5/325 mg Tablet PO PRN (14:32)
[2018-07-06] MEDS ORDERED: Morphine 4 MG/ML VIAL SLOW IVP PRN (14:32)
[2018-07-06] MEDS ORDERED: Communication Order-Pharmacy FS PRN (14:45)
[2018-07-06 15:02] LABS: Actual Bicarbonate (HCO3a) 28.5 mEq/L (22-28); Analyzer IN Cardio OR; Base Excess (BEa) 3.2 mEq/L (-2.0 to +3.0); CO2 Tension 45.6 mmHg (35.0-45.0); Calcium, Ionized 1.13 mmol/L (1.12-1.30); Hemoglobin (Hb) 13.7 g/dL (14.0-18.0); O2 Tension (PaO2) 84.7 mmHg (> 70.0); Potassium - ABG Lab 3.25 mmol/L (3.70-5.30); pH, Arterial 7.41 (7.35-7.45)
[2018-07-06 15:03] LABS: Puncture Site RRA
--- NOTE | 2018-07-06 15:14 | RAD ---
EXAM: CHEST ONE VIEW: History: 77-year-old male with history of shortness of breath. Comparison: 05-26-18 FINDINGS: Decreased inspiratory effort with bilateral pleural thickening and bilateral costophrenic angle blunt ing, progressive from prior exam with some bilateral vascular congestion. Minimal stable increased ma rkings in the right midlung zone laterally. IMPRESSION: Bilateral vascular congestion with some bilateral pleural thickening and some costophrenic angle blun ting with proximal bilateral pleural effusions with at least borderline cardiomegaly. Small patchy of alveolar parenchymal density in the right midlung zone laterally, nonspecific. Possibilities include that of a small patch of pneumonia or pneumonitis. Please correlate clinically. Suggest follow up ex amination in several weeks for clearing or stability. POS: ROBI
[2018-07-06] MEDS ORDERED: Furosemide 40 MG/4 ML VIAL ONE (15:19)
[2018-07-06] MEDS ORDERED: TETANUS AND DIPHTHERIA TOX/PF 0.5 ML DISP.SYRIN IM SCH (16:00)
[2018-07-06 18:04] LABS: Troponin I 0.073 ng/mL (< 0.028)
[2018-07-06] MEDS: Mometasone/Formoterol 120 PUFF INHALER INH SCH (19:45)
[2018-07-06] MEDS ORDERED: Ropivacaine 0.5% HCl/PF (150 MG/30 ML VIAL) ONE (20:10)
[2018-07-06] MEDS ORDERED: Ropivacaine 0.2% HCl/PF (40 MG/20 ML VIAL) ONE (20:10)
[2018-07-06] MEDS ORDERED: Aspirin 81 mg Enteric Coated Tablet PO SCH (21:00)
[2018-07-06 21:11] VITALS: BMI 36.6
[2018-07-06] MEDS: Gabapentin 100 MG CAP PO SCH (21:21)
[2018-07-06] MEDS: Carvedilol 25 MG TAB PO SCH (21:21)
[2018-07-06] MEDS: Finasteride 5 MG TAB PO SCH (21:21)
[2018-07-06] MEDS: Magnesium Oxide 250 MG TAB PO SCH (21:21)
[2018-07-06] MEDS: Docusate 100 MG CAP PO SCH (21:22)
--- NOTE | 2018-07-06 23:15 | HP ---
PRIMARY CARE PHYSICIAN: Dr. Goncalves. CHIEF COMPLAINT/REASON FOR ADMISSION: The patient was intolerant while lying flat in preparation for anesthesia induction for elective right elbow/right wrist surgery, case cancelled, hospital admission requested. HISTORY OF PRESENT ILLNESS: Mr. Ramirez is a delightful 77-year-old gentleman, familiar to the hospitalist service from prior admissions, most recently in May 2018, at which time he was placed on short-stay status when he presented with acute bronchitis. He has a history of chronic diastolic congestive heart failure and is followed from a Cardiology standpoint by Dr. Galloway. Additionally, he has a history of reactive airway disease, essential hypertension, stage 3 chronic kidney disease, chronic macrocytic anemia, and nonobstructive coronary artery disease with 50% stenosis of LAD based on heart catheterization in 2012. He presented electively to the preoperative area today, in preparation for elective right elbow and right wrist procedure under the care of Dr. Duarte. However, when he was placed in a supine position, he became abruptly dyspneic, intolerant of position, and case subsequently canceled. Chest x-ray subsequently revealed the presence of bilateral pleural effusions. The patient relates increasing difficulties with weight gain and dyspnea over the last few days. He had increased his torsemide at home, had communicated to the Heart Failure Program, however, still had difficulty with fluid retention. He denies any chest pain or chest pressure. Endorses dyspnea on exertion, weight gain, estimating 4 pounds, and slight increasing abdominal distention. Blood pressures at home have overall been well-controlled. At the time of my evaluation, he was fairly comfortable when sitting upright. Denies any nausea or vomiting, fever or chills. Bronchitis from May has been improving, without recurrence. He is agreeable to placement in the hospital for IV diuretic therapy and additional care. The elective orthopedic surgery estimated time is 3 hours. PAST MEDICAL HISTORY: 1. Essential hypertension. 2. Reactive airway disease, with history of admission in May 2018 for exacerbation of baseline reactive airway disease. 3. Chronic kidney disease stage 3, most recent laboratory evaluation in May showing a BUN of 28, and creatinine of 1.47. 4. Chronic macrocytic anemia, with normal B12 level noted in January of 2018 at our facility. 5. Coronary artery disease, nonobstructive, no stent, no bypass, 50% stenosis of left anterior descending artery noted on cardiac catheterization in 2012. 6. Obstructive sleep apnea, on home BiPAP. 7. Diastolic congestive heart failure, diagnosed approximately 5 years ago in June of 2014. PAST SURGICAL HISTORY: 1. Right testicle hydrocele repair. 2. Right shoulder surgery/rotator cuff. 3. Left shoulder arthroscopy. 4. Bilateral wrist surgery. 5. Bilateral leg vein ablations. 6. Hernia surgery, 06/26/2018. 7. Total left knee replacement. 8. Appendectomy. 9. Abscess incision and drainage. 10. 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 FAMILY HISTORY: Father of sudden , presumably from an aneurysm rupture at age 33. Mother of complications of congestive heart failure at age 86. 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 He is . He drinks about 6 ounces of whiskey per day, and makes home made wine. He has a former history of tobacco use, perhaps 4 or 5 cigarettes per day for a span of about 10 years. HOME MEDICATIONS: 1. Calcitriol 0.25 mcg p.o. daily. 2. Symbicort 160/4.5 two puffs inhaled twice daily. 3. Aspirin 81 mg p.o. q.h.s. 4. ProAir HFA two puffs inhaled q.6 hourly p.r.n. shortness of breath. 5. Gabapentin 200 mg p.o. q.h.s. scheduled and 100 mg p.o. as needed during the night for pain. 6. Proscar 5 mg p.o. q.h.s. 7. Colace 100 mg p.o. b.i.d. 8. Coreg 25 mg p.o. b.i.d. 9. Bioflex supplement p.o. daily. 10. Klor-Con 10 mEq p.o. daily. 11. Protonix 40 mg p.o. daily. 12. Centrum multivitamin p.o. daily. 13. Magnesium 500 mg p.o. twice daily. 14. Co-enzyme q.10 400 mg p.o. q.h.s. 15. Torsemide 40 mg p.o. daily. 16. Aldactone 25 mg p.o. daily. 17. [place] 3 supplement 1 capsule p.o. daily. ALLERGIES: LISTED TO PENICILLIN. REVIEW OF SYSTEMS: Complete review of systems reviewed/addressed/negative except otherwise as mentioned. PHYSICAL EXAMINATION: VITAL SIGNS: Blood pressure is 160/90, with a heart rate of 75 at the time of my evaluation, he is afebrile, presently sating 92% on 2 L of oxygen per nasal cannula. GENERAL: Presently, awake and alert. He is oriented to person, place, and time. 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 HEENT: Eyes are notable for area of scarring overlying the right eye with stitches in place beneath the cornea. Mildly anisocoric pupils. Oropharynx is clear without erythema or exudate. NECK: Supple. Full range of motion. No jugular venous distention. LUNGS: Rales are present diffusely, decreased breath sounds at the bases bilaterally. ABDOMEN: Mildly distended, nontender. EXTREMITIES: Trace edema, bilateral lower extremities. NEUROLOGICAL: He is able to move all extremities bilaterally to command. No focal neurological deficits. SKIN: Without skin rash or skin change. LABORATORY/DATA REVIEW: White blood cell count 8.1, hemoglobin 13.3, hematocrit 38.3, MCV 99, platelet count of 200. Chemistry panel; BUN 38, creatinine 1.6, glucose 123, calcium 9.1, serum sodium 139, potassium 3.7. Previous labs and prior visit records were reviewed. Per Cardiology records, ejection fraction 50% to 55% on last echocardiogram that is available for review. 12-lead EKG, troponin, BNP, and 2D echocardiogram ordered. I personally reviewed his chest x-ray, bilateral pleural effusions are present. The radiology interpretation of the chest x-ray showing bilateral vascular congestion with bilateral pleural thickening and costophrenic angle blunting associated with bilateral effusions, small patchy alveolar parenchymal disease, right mid zone laterally is noted, possibilities can include a small patchy pneumonia or pneumonitis. IMPRESSION: 1. Chronic diastolic congestive heart failure, with acute decompensation (acute on chronic). 2. History of obstructive sleep apnea, on home BiPAP. 3. Essential hypertension. 4. Reactive airway disease, status post recent recovery from acute bronchitis, May 2018. 5. Chronic kidney disease stage 3. 6. Chronic macrocytic anemia, mild, unchanged. 7. Nonobstructive coronary artery disease with 50% stenosis left anterior descending artery from cardiac catheterization in 2012, asymptomatic. 8. Bilateral pleural effusions. 9. Arthritis/injury right forearm/wrist with plans for elective orthopedic repair upon medical clearance. PLAN/RECOMMENDATIONS: 1. Cardiology - admit to full inpatient status, anticipated hospital stay will likely cross 2 midnights for optimization of cardiac function. Requests a monitored bed. Baseline EKG. Send cardiac troponin, check BNP. Recheck echocardiogram. 2. Pulmonary - repeat chest x-ray following diuresis, may need a repeat chest x-ray prior to rescheduling his orthopedic procedure, which could be scheduled in a couple of weeks. Request Respiratory to place the patient on home BiPAP settings. P.r.n. nebulizers and continue home Symbicort. 3. Fluids, electrolytes, nutrition saline lock IV fluid, placed on heart healthy diet, minimize salt. 4. Deep venous thrombosis prophylaxis - Lovenox. 5. Code status is full. Given his age and comorbidities, he is a high risk. He will be monitored closely in the hospital. Job ID: [id number]
[2018-07-07] MEDS: Potassium Chloride 20 MEQ TAB PO SCH ×3 (03:10→16:28)
[2018-07-07] MEDS: Furosemide 40 MG/4 ML VIAL SLOW IVP SCH ×2 (05:32→14:57)
[2018-07-07 05:50] LABS: #Basophils 0.1 thou/uL (0.0-0.2); #Eosinphils 0.3 thou/uL (0.0-0.7); #Lymphocytes 1.4 thou/uL (1.20-3.40); #Monocytes 0.8 thou/uL (0.11-0.59); #Neutrophils 4.3 thou/uL (1.40-6.50); %Basophils 1.1 % (0.0-1.0); %Lymphocytes 20.8 % (21.0-51.0); %Monocytes 10.9 % (0.0-10.0); %Neutrophils 62.1 % (42.0-75.0); Hemoglobin 12.5 g/dL (14.0-18.0); Mean Corpuscular Hemoglobin 33.7 pg (27.0-31.0); Mean Corpuscular Volume 98.9 fL (78.0-98.0); Mean Platelet Volume 7.6 fL (7.4-10.4); Platelet Count 182 thou/uL (130-400); RBC Distribution Width 11.5 % (11.5-14.5); Red Blood Cell (RBC) Count 3.71 mill/uL (4.70-6.10); White Blood Cell (WBC) Count 6.9 thou/uL (4.8-10.8)
[2018-07-07 06:09] LABS: ALT (SGPT) 19 U/L (8-55); AST (SGOT) 19 U/L (5-34); Albumin 3.7 g/dL (3.4-4.8); Alkaline Phosphatase 56 U/L (40-150); Anion Gap 14 mmol/L (10-20); BUN (Urea Nitrogen) 34 mg/dL (8.4-25.7); Bilirubin, Total 0.9 mg/dL (0.2-1.2); Calc. Creatinine Clearance 76 mL/min (70-130); Calcium 8.5 mg/dL (7.8-10.44); Carbon Dioxide 28 mmol/L (23-31); Chloride 97 mmol/L (98-107); Estimated GFR-MDRD 52; Globulin 2.6 g/dL (2.4-3.5); Glucose 121 mg/dL (83-110); Magnesium 2.1 mg/dL (1.6-2.6); Potassium 3.4 mmol/L (3.5-5.1); Protein, Total 6.3 g/dL (5.8-8.1); Sodium 136 mmol/L (136-145)
[2018-07-07] MEDS: Mometasone/Formoterol 120 PUFF INHALER INH SCH ×2 (06:11→19:48)
[2018-07-07] MEDS: Spironolactone 25 MG TAB PO SCH (10:12)
[2018-07-07] MEDS: Magnesium Oxide 250 MG TAB PO SCH ×2 (10:12→20:17)
[2018-07-07] MEDS: Docusate 100 MG CAP PO SCH ×2 (10:12→20:19)
[2018-07-07] MEDS: Enoxaparin Sodium 30 MG/0.3 ML SYRINGE SC SCH (10:12)
[2018-07-07] MEDS: Carvedilol 25 MG TAB PO SCH ×2 (10:12→20:20)
[2018-07-07] MEDS: Calcitriol 0.25 MCG CAP PO SCH (10:12)
[2018-07-07] MEDS: Multivitamin W/ Minerals 1 TAB PO SCH (10:12)
[2018-07-07] MEDS ORDERED: Potassium Chloride 20 MEQ TAB PO SCH (11:00)
--- NOTE | 2018-07-07 12:18 | PRG ---
DATE OF SERVICE: 07/07/2018 SUBJECTIVE: Mr. Ramirez has done well overnight. Tolerated bilevel at home settings. Diuresing, notes interval improvement and some abdominal distention he had noted previously. Breathing comfortably, presently with 2 L of oxygen per nasal cannula. Attempts at oxygen weaning will be made this afternoon. OBJECTIVE: VITAL SIGNS: Blood pressure 133/62, heart rate of 68, temperature 97.7, saturating 95% on 2 L oxygen per nasal cannula. GENERAL: He is awake and alert. He is oriented to person, place, and time. HEENT: Eyes are without conjunctival injection. Sclerae icteric. He has had previous right corneal surgery, stitches are present. Oropharynx is clear without erythema or exudate. NECK: Supple with full range of motion. HEART: Regular rate and rhythm. LUNGS: Notable for interval improvement in aeration at the bases. No distinct wheezing this morning. ABDOMEN: Softer, less distended. Bowel sounds are present. EXTREMITIES: Trace pedal edema present. None changed. NEUROLOGIC: No focal deficits. SKIN: No any skin rash or skin change. LABORATORY/DATA REVIEW: Serum potassium this morning is 3.4; chloride 97; serum sodium 136; BUN 34; creatinine 1.3, creatinine yesterday was 1.6; glucose of 121. Remainder of lab is unremarkable. IMPRESSION: 1. Chronic diastolic congestive heart failure with acute decompensation (acute on chronic). 2. History of obstructive sleep apnea, on home BiPAP. 3. Essential hypertension, controlled. 4. Reactive airway disease, status post recent recovery from acute bronchitis in May 2018. 5. Chronic kidney disease, stage 3. 6. Chronic macrocytic anemia, mild, unchanged. 7. Nonobstructive coronary artery disease with 50% stenosis in left anterior descending from cardiac catheterization in 2012, asymptomatic. 8. Bilateral pleural effusions. 9. Arthritis/injury of right forearm/wrist with plans for elective orthopedic repair upon medical clearance. 10. Hypokalemia. PLAN/RECOMMENDATIONS: 1. Cardiology-discussed with the patient. Echocardiogram ordered. BNP elevated at 193 on labs yesterday. Continue IV Lasix/diuresis, supplemental potassium. 2. Check daily weight, increase activity, wean oxygen. I have also ordered a PA and lateral chest x-ray for tomorrow morning to follow up the pleural effusions present on his chest x-ray yesterday. 3. Orthopedic-he will be rescheduled for his orthopedic procedure in [address] Duarte. 4. Pulmonary-continue home BiPAP, continue on Symbicort as well as as-needed nebulizer. 5. Fluids, electrolytes, nutrition; continue heart-healthy diet. 6. DVT prophylaxis-Lovenox. 7. Code status is full. 8. Anticipate the patient might be a candidate for transition home tomorrow after additional diuresis and increase in activity. Job ID: [id number]
--- NOTE | 2018-07-07 15:10 | HP ---
CHIEF COMPLAINT: 1. Right upper extremity wrist, forearm, and elbow pain with cubital tunnel syndrome, here for surgery. 2. Acute shortness of breath. HISTORY OF PRESENT ILLNESS: The patient is a 77-year-old right-hand dominant male with a history of SLAC of the wrist with ulnar positive wrist TFCC tear and advanced arthritic changes spared his capitate at the right wrist as well as severe cubital tunnel at the right upper extremity. He was here for correction of these three. When, after being brought to the operating room, he laid down on the table and got very short of breath with increased respiratory rate and dyspnea. For this reason, his surgery was abandoned. He was brought to the postanesthetic care unit, where evaluation revealed that he was in congestive heart failure, bilateral pulmonary edema, and no evidence of any pneumothorax at this time. REVIEW OF SYSTEMS: The patient had a right supraclavicular indwelling block for his surgery and also the day before reported by his spouse, Ms. Ramirez that he had "7 L of fluid" removed from his abdomen, where he has chronic ascites. PAST MEDICAL HISTORY: 1. Ascites, chronic. 2. History of congestive heart failure, uncompensated. 3. Pulmonary edema history. 4. Dyslipidemia. 5. Obesity. 6. Coronary artery disease with three previous stent placements. ALLERGIES: NO KNOWN ALLERGIES. MEDICATIONS: The patient is on 14 different medicines, please see attached medical record. AMBULATORY STATUS: The patient ambulates without limitation at this time. PHYSICAL EXAMINATION: The patient at the time of admission had respiratory rate of approximately 26, had some mild dyspnea, which decreased when we placed him in upright position. He is awake, alert, and oriented x3 with cranial nerves intact 2 through 12. Speech is normal and there is no disorientation whatsoever. His respiratory rate at the time of this dictation is 24. There is no obvious shortness of breath. He has markedly protuberant abdomen, which is firm, indicative of the ascites. He has M5 power with no pain at the right upper extremity because he has a block. Left upper extremity, no weakness whatsoever. Left lower extremity was ankle dorsiflexion toe extension M5. Preadmission assessment in the PACU: The patient had a chest x-ray, which show fluid, pulmonary edema occupied at least one-third of both right and left lung berger. I could also see the indwelling supraclavicular catheter. ASSESSMENT AND RECOMMENDATION: Acute uncompensated on chronic congestive heart failure in a patient with history of same: I consulted Internal Medicine. The patient to be admitted until the acute episode is done and then, once he demonstrates several weeks of being asymptomatic, we will reschedule the surgery. Also inform the spouse, we admitted him to a bed, where he could be monitored and presently waiting for that. I will continue to follow him and he is admitted to me; however, I am not a commercial lines underwriter, internists only, a simple country hand surgeon. Job ID: [id number]
[2018-07-07] MEDS: Finasteride 5 MG TAB PO SCH (20:19)
[2018-07-07] MEDS: Gabapentin 100 MG CAP PO SCH (20:20)
[2018-07-08] MEDS: Furosemide 40 MG/4 ML VIAL SLOW IVP SCH ×2 (05:49→14:15)
[2018-07-08 06:05] LABS: Anion Gap 15 mmol/L (10-20); BUN (Urea Nitrogen) 31 mg/dL (8.4-25.7); Calc. Creatinine Clearance 70 mL/min (70-130); Calcium 8.9 mg/dL (7.8-10.44); Carbon Dioxide 28 mmol/L (23-31); Chloride 97 mmol/L (98-107); Estimated GFR-MDRD 48; Glucose 119 mg/dL (83-110); Potassium 3.5 mmol/L (3.5-5.1); Sodium 136 mmol/L (136-145)
[2018-07-08 06:13] LABS: Troponin I 0.056 ng/mL (< 0.028)
[2018-07-08] MEDS: Mometasone/Formoterol 120 PUFF INHALER INH SCH (06:49)
[2018-07-08] MEDS: Potassium Chloride 20 MEQ TAB PO SCH ×2 (08:48→16:40)
[2018-07-08] MEDS: Calcitriol 0.25 MCG CAP PO SCH (08:50)
[2018-07-08] MEDS: Magnesium Oxide 250 MG TAB PO SCH (08:50)
[2018-07-08] MEDS: Carvedilol 25 MG TAB PO SCH (08:50)
[2018-07-08] MEDS: Spironolactone 25 MG TAB PO SCH (08:50)
[2018-07-08] MEDS: Multivitamin W/ Minerals 1 TAB PO SCH (08:50)
[2018-07-08] MEDS: Docusate 100 MG CAP PO SCH (08:50)
[2018-07-08] MEDS: Enoxaparin Sodium 30 MG/0.3 ML SYRINGE SC SCH (08:51)
--- NOTE | 2018-07-08 12:52 | RAD ---
PA AND LATERAL CHEST XRAY: DATE: 07/08/2018. HISTORY: Followup pleural effusions. COMPARISON: 07/06/2018. FINDINGS: While there is persistent blunting of each lateral costophrenic angle, the bilateral pleural effusion s do appear improved from the prior exam. The patchy parenchymal opacity in the left mid lung zone h as also resolved which may be related to resolution of pneumonitis/pneumonia. Pulmonary vasculature has also improved. There is also improved aeration due to better depth of inspiration. Cardiac silh ouette remains mildly enlarged. Pulmonary vasculature is within normal limits on the current study. Vascular calcifications are seen in the thoracic aorta. No other interval change. IMPRESSION: 1. Resolution of parenchymal opacity in the right mid lung zone which may be related to resolution o f pneumonia/pneumonitis. 2. Improvement in bilateral pleural effusions with suggestion of persistent tiny bilateral pleural e ffusions greater on the left with associated atelectasis. 3. Mild cardiomegaly without overt congestive heart failure. POS: ROBI
[2018-07-08 16:39] VITALS: BP 132/69; TEMP 97.7
--- NOTE | 2018-07-08 22:50 | DIS ---
DATE OF ADMISSION: 07/06/2018 DATE OF DISCHARGE: 07/08/2018 DIAGNOSES AT THE TIME OF DISCHARGE: 1. Chronic diastolic congestive heart failure with acute decompensation, acute on chronic. 2. History of obstructive sleep apnea, on home BiPAP. 3. Essential hypertension, controlled. 4. Reactive airway disease, status post recent recovery from acute bronchitis in 05/2018. 5. Chronic kidney disease stage 3. 6. Chronic microcytic anemia, mild, unchanged. 7. Nonobstructive coronary artery disease with 50% stenosis in left anterior descending from cardiac catheterization 2012, asymptomatic. 8. Bilateral pleural effusions, improved. 9. Arthritis/injury of the right forearm/wrist with plans for elective orthopedic repair upon medical clearance. 10. Hypokalemia. HOSPITAL COURSE: The patient is a 77-year-old male, who was admitted to the hospital for evaluation and treatment after he was found to be very short of breath prior to his scheduled operation for ulnar TFCC tear and advanced arthritic changes, so for this reason, his surgery was abundant and he was brought in for further evaluation of his problem. He was found to be in congestive heart failure exacerbation with bilateral pulmonary edema and no evidence of any pneumothorax at this time. His chest x-ray showed pulmonary edema, fluid occupied at least one-third of both right and left lung berger. He was diagnosed with acute uncompensated on chronic congestive heart failure. His white count was 8.1, hemoglobin 13.3, hematocrit 38.3, BUN 38, and creatinine 1.6. His LVEF according to the previous echo was 50% to 55%. He was diuresed with IV Lasix. His potassium dose was increased. He did very well. He responded to the treatment nicely. His followup chest x-ray showed significant improvement in his pleural effusions and clinically, he improved to the point that he is discharged home. His vitals; blood pressure is 132/69, pulse is 69, temperature is 97.7, respiratory rate is 17, and O2 saturation is 94% on room air. His breath sounds are still somewhat diminished at both bases, but he does not have crackles anymore. He is able to ambulate without oxygen without any shortness of breath. He is discharged home with recommendation to stay on low-salt diet. Ambulation is allowed with any limitations as tolerated. DISCHARGE MEDICATIONS: 1. Spironolactone 25 mg once a day. 2. Torsemide 40 mg twice a day. 3. Gabapentin 200 mg at bedtime. 4. Magnesium 500 mg twice a day. 5. Multivitamin one a day. 6. Pantoprazole 40 mg once a day. 7. Potassium chloride 20 mEq once a day. 8. Carvedilol 25 mg twice a day. 9. Docusate which is Colace 100 mg twice a day. 10. Proscar 5 mg at bedtime. 11. Aspirin 81 mg once a day. 12. Calcitriol 0.25 mcg once a day. 13. Symbicort two puffs twice a day. 14. Albuterol 2 puffs q.6 hours p.r.n. as needed. 15. Coenzyme Q10 400 mg at bedtime. 16. [place]/omega-3 fatty acids one capsule once a day. FOLLOWUP: He will follow up with his primary care physician in 1 week and he will call Dr. Galloway, viscosity inspector, for followup appointment. This patient was seen and examined before his discharge. TIME SPENT: Discharge time is less than 30 minutes. Job ID: [id number]
== END 2018-07-08 17:51 | disposition home or self-care (01) | DRG 291 ==
LOC: SDC 10:40 → 2NO 14:32
PROVIDERS: ADMIT Orthopaedic Surgery Hand Surgery; ATTEND Orthopaedic Surgery Hand Surgery
DX: I13.0 Hypertensive heart and chronic kidney disease with heart failure and stage 1 through stage 4 chronic kidney disease, or unspecified chronic kidney disease (principal); I50.33 Acute on chronic diastolic (congestive) heart failure; R18.8 Other ascites; E78.5 Hyperlipidemia, unspecified; E66.9 Obesity, unspecified; Z68.36 Body mass index [BMI] 36.0-36.9, adult; I25.10 Atherosclerotic heart disease of native coronary artery without angina pectoris; Z53.09 Procedure and treatment not carried out because of other contraindication; N18.3 Chronic kidney disease, stage 3 (moderate); J45.909 Unspecified asthma, uncomplicated; D53.9 Nutritional anemia, unspecified; G47.33 Obstructive sleep apnea (adult) (pediatric); E87.6 Hypokalemia; G56.21 Lesion of ulnar nerve, right upper limb; Z79.82 Long term (current) use of aspirin; Z87.891 Personal history of nicotine dependence; Z96.652 Presence of left artificial knee joint; Z95.5 Presence of coronary angioplasty implant and graft
CPT/HCPCS: 36415; 71045; 71046; 80048; 80053; 81001; 82805; 83735; 83880; 84484; 85025; 85652; 93005; 93010; 93306; 94660; 96374; A4306; J0702; J1650; J1940; J2250; J2370; J2795; J3010; J3490; S0020

== ENCOUNTER 2018-08-03 09:48 | Observation (INO) | payer MEDICARE ==
[2018-08-02 14:04] VITALS: BMI 37.0
[2018-08-03 10:41] LABS: #Eosinphils 0.1 thou/uL (0.0-0.7); #Lymphocytes 1.6 thou/uL (1.20-3.40); #Monocytes 0.8 thou/uL (0.11-0.59); #Neutrophils 5.1 thou/uL (1.40-6.50); %Basophils 0.6 % (0.0-1.0); %Eosinophils 1.9 % (0.0-10.0); %Lymphocytes 20.6 % (21.0-51.0); %Monocytes 10.4 % (0.0-10.0); %Neutrophils 66.5 % (42.0-75.0); Hemoglobin 14.3 g/dL (14.0-18.0); Mean Platelet Volume 7.4 fL (7.4-10.4); Platelet Count 221 thou/uL (130-400); RBC Distribution Width 11.1 % (11.5-14.5); White Blood Cell (WBC) Count 7.7 thou/uL (4.8-10.8)
[2018-08-03 10:44] LABS: Bacteria/HPF None Seen HPF (None Seen); Hyaline Casts/LPF 0-3 HYALINE CAST LPF (0-3 Hyaline); RBC/HPF 0-3 HPF (0-3); Squamous Epithelial None Seen HPF (0-3); WBC/HPF 0-3 HPF (0-3)
[2018-08-03 11:08] LABS: Anion Gap 17 mmol/L (10-20); BUN (Urea Nitrogen) 44 mg/dL (8.4-25.7); Calc. Creatinine Clearance 54 mL/min (70-130); Carbon Dioxide 29 mmol/L (23-31); Chloride 96 mmol/L (98-107); Estimated GFR-MDRD 35; Glucose 137 mg/dL (83-110); Potassium 3.7 mmol/L (3.5-5.1); Sodium 138 mmol/L (136-145)
[2018-08-03] MEDS ORDERED: Glycopyrrolate 0.2 MG/ML 5 ML SYRINGE ONE (12:04)
[2018-08-03] MEDS ORDERED: PROPOFOL 200 MG/20 ML VIAL ONE (12:04)
[2018-08-03] MEDS ORDERED: Ondansetron PF 4 MG/2 ML Vial ONE (12:04)
[2018-08-03] MEDS ORDERED: ePHEDrine/0.9% NaCl/PF SYRINGE 50 mg/10 ml ONE (12:04)
[2018-08-03] MEDS ORDERED: Succinylcholine Chloride 20 MG/ML 10 ml SYRINGE FS ONE (12:04)
[2018-08-03] MEDS ORDERED: Lidocaine 1% PF 5 ML VIAL ONE (12:04)
[2018-08-03] MEDS ORDERED: Dexamethasone 20 MG/5 ML VIAL ONE (12:04)
[2018-08-03] MEDS ORDERED: Rocuronium Bromide 10 MG/ML (10ML VIAL) ONE (12:04)
[2018-08-03] MEDS ORDERED: PHENYLEPHRINE-NS 100 MCG/ML 10 ML SYRINGE ONE (12:04)
[2018-08-03] MEDS ORDERED: PROVENTIL INHALER 6.7 G (200 INHALATIONS) ONE (12:04)
[2018-08-03] MEDS ORDERED: Clindamycin/D5W 600 mg/50 ml Premix Bag ONE (13:13)
[2018-08-03] MEDS ORDERED: Bupivacaine PF 0.5% 30 ML VIAL ONE (15:03)
[2018-08-03] MEDS ORDERED: Bacitracin Zinc Ointment 30 gm TUBE ONE (15:03)
[2018-08-03] MEDS ORDERED: EPINEPHrine 1 MG/ML AMP ONE (15:03)
[2018-08-03] MEDS ORDERED: Fentanyl 100 MCG/2 ML VIAL ONE ×2 (15:24→21:27)
[2018-08-03] MEDS ORDERED: Phenylephrine HCL 10 MG/ML VIAL ONE (15:42)
[2018-08-03] MEDS ORDERED: Thrombin 5000 UNITS/5 ML VIAL ONE (19:54)
[2018-08-03] MEDS ORDERED: Ondansetron PF 4 MG/2 ML Vial IV PRN (20:30)
[2018-08-03] MEDS ORDERED: Morphine 4 MG/ML VIAL SLOW IVP PRN (20:30)
[2018-08-03] MEDS ORDERED: Acetaminophen 325 MG TAB PO PRN (20:30)
[2018-08-03] MEDS ORDERED: Promethazine HCl 25 MG/ML VIAL IM PRN ×2 (20:30→20:38)
[2018-08-03] MEDS ORDERED: Bisacodyl 10 MG SUPP PR PRN (20:30)
[2018-08-03] MEDS ORDERED: Fentanyl 100 MCG/2 ML VIAL SLOW IVP PRN (20:30)
[2018-08-03] MEDS ORDERED: Communication Order-Pharmacy FS SCH (20:30)
--- NOTE | 2018-08-03 20:32 | RAD ---
RIGHT FOREARM TWO VIEWS INTRAOPERATIVE FLUOROSCOPY 08/03/18 HISTORY: Ulnar fracture. FINDINGS/IMPRESSION: Intraoperative fluoroscopy was provided for internal fixation as performed by Gerald. Spot fluorosc opic images show compression plate and screws transfixing the distal ulna, in anatomic alignment. POS: ZAIDA
[2018-08-03] MEDS ORDERED: Ondansetron HCl/PF 4 MG/2 ML Vial IVP PRN (20:38)
[2018-08-03] MEDS ORDERED: Promethazine HCl 25 MG/ML VIAL SLOW IVP PRN (20:38)
[2018-08-03] MEDS ORDERED: HYDROmorphone 2 MG/ML VIAL SLOW IVP PRN (20:38)
[2018-08-03] MEDS ORDERED: Morphine Sulfate 2 MG/ML SYRINGE SLOW IVP PRN (20:38)
[2018-08-03] MEDS ORDERED: PACU-Morphine 4MG/ML VIAL SLOW IVP PRN (20:38)
[2018-08-03] MEDS ORDERED: Meperidine HCl/PF 25 MG/ML VIAL SLOW IVP PRN (20:38)
[2018-08-03] MEDS ORDERED: Vancomycin HCl 1.75 GM in Sodium Chloride 0.9% 500 ML IVPB SCH (21:00)
[2018-08-03] MEDS ORDERED: Vancomycin HCl 1 GM in Premix Bag 1 BAG IVPB SCH (21:00)
[2018-08-03] MEDS: Aspirin 81 mg Enteric Coated Tablet PO SCH (23:24)
[2018-08-04] MEDS: traMADol HCl 50 MG TAB PO PRN ×2 (01:29→09:03)
[2018-08-04 05:00] LABS: #Monocytes 0.7 thou/uL (0.11-0.59); #Neutrophils 8.9 thou/uL (1.40-6.50); %Basophils 0.2 % (0.0-1.0); %Eosinophils 0.2 % (0.0-10.0); %Lymphocytes 9.6 % (21.0-51.0); %Monocytes 6.4 % (0.0-10.0); %Neutrophils 83.7 % (42.0-75.0); Hemoglobin 12.5 g/dL (14.0-18.0); Mean Corpuscular HGB CONC 33.7 g/dL (32.0-36.0); Mean Corpuscular Hemoglobin 33.9 pg (27.0-31.0); Mean Platelet Volume 7.2 fL (7.4-10.4); Platelet Count 185 thou/uL (130-400); RBC Distribution Width 11.1 % (11.5-14.5); Red Blood Cell (RBC) Count 3.69 mill/uL (4.70-6.10); White Blood Cell (WBC) Count 10.6 thou/uL (4.8-10.8)
[2018-08-04] MEDS: HYDROcodone/Acetaminophen 5/325 mg Tablet PO PRN ×3 (06:03→15:20)
[2018-08-04] MEDS ORDERED: TETANUS AND DIPHTHERIA TOX/PF 0.5 ML DISP.SYRIN IM SCH (09:00)
[2018-08-04] MEDS: Aspirin 81 mg Enteric Coated Tablet PO SCH (09:03)
--- NOTE | 2018-08-04 12:45 | RAD ---
RADIOGRAPH RIGHT WRIST 3 VIEWS: DATE: 08/03/2018. TIME: 6:22 p.m. HISTORY: A 77-year-old male with right wrist pain. COMPARISON: 06/28/2010. FINDINGS: Fluoroscopic spot images obtained with C-arm in the OR. Initial image demonstrates decrease in bone volume involving the scaphoid and especially the lunate, new findings compared to 2010. Degenerative changes at the DRUJ appear similar to the previous study. 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 On the curr ent study, that distal osseous fragment is not present, and the ulnar styloid process does not appear truncated as previously. The 2nd image demonstrates tissue retractors at the wrist, 2 needle drivers, and K-wires, overlying t he radial and ulnar sides of the proximal carpal row. The 3rd and 4th images are frontal and lateral views showing gas replacing the now absent triquetrum and scaphoid. The lunate is also absent. Thi s results in proximal displacement of the distal carpal row due to the absence of the proximal carpal row. IMPRESSION: 1. Ongoing surgical removal/resection of the scaphoid, lunate, and triquetrum (proximal carpal row). 2. Because of the difference in appearance of the ulnar styloid process on the current study compare d to the previous right wrist radiograph of 06/28/2010, we raise the possibility that this could eith er be a different patient, or that the right and left wrist labeling could be incorrect. Clinical co rrelation is recommended. POS: ROBI
[2018-08-04 16:26] VITALS: BP 138/64; TEMP 98.4
--- NOTE | 2018-08-05 00:40 | OP ---
DATE OF PROCEDURE: 08/04/2018 PREOPERATIVE DIAGNOSIS: Left wrist gout. POSTOPERATIVE DIAGNOSES: 1. 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 2. Avascular necrosis of the lunate. 3. Scapholunate and interosseous membrane complete loss with stage 2-3 scaphoid lunate advanced collapse wrist with the primary articular surface of the lunate to capitate having 95% of the chondral surface glistened intact over the capitate and the chondral fossa of the lunate portion of the radius (lunate fossa radius, has a similar chondral condition suitable for the procedure performed). 4. Again diffuse crystalline arthropathy, the deposition on the radial fossa, the scaphoid, lunate, the capsule over the capitate and the hamate and along the triangular fibrocartilage tear AH2, complete 1 cm cervical loss of the chondral surface of the central triangular fibrocartilage degeneration with 2 mm ulnar protrusion through the TFCC tear, especially once resected and debrided and finally 2 cm area of compression of the antecubital tunnel proper of the ulnar nerve where the patient had only stage 1-2 Pratt changes and did not have severe atrophy. PROCEDURES PERFORMED: 1. Capsulectomy. 2. Synovectomy, arthroscopic. 3. TFCC debridement, arthroscopic and treated of degenerative tear. 4. Proximal carpectomy, open. 5. Right ulnar shortening osteotomy, Rayhack technique and plate open. 6. C-arm supervision. 7. Right ulnar nerve neuroplasty at the cubital tunnel level, elbow and aids application of long-arm splint. 8. Arthroscopic synovectomy wrist. 9. Olecranon bursectomy, left elbow and this was sent as specimen. TOURNIQUET TIME: 108 minutes (68 minutes for the wrist, informed procedure combined with the tourniquet deflated to close these incisions and then a 25 minutes interval and then 40 minutes of inflation of tourniquet for the ganglion cyst, mainly for the elbow procedure. DESCRIPTION OF PROCEDURE: After successful general LMA technique, the limb was prepped and draped. The patient had the time-out done appropriately. He was initially placed in the in-line traction using [employer] arm judge, well-padded to include using a whole roll of 6 inch cast padding for high application of the tourniquet and arm to allow for cubital tunnel procedure. We then were able to establish after prepping and placing the wrist tower, the 6U, 6R and the 3, 4 portals. Panoramic view revealed very quickly, the very large fronds of synovitis along their base. These were crystalline arthropathy consistent more likely of a gout, but could be pseudogout. We then began switching between the three portals of viewing and working portal. Synovectomy nearly completely removed as much as possible. We will send arthroscopic sample with a grabber from the center of the wrist. It was here that we saw the scapholunate ligament was completely gone, there was a wide separation. We could see the capitate by easily driving into the midcarpal joint between the scapholunate interval and the fossa lunate was also very atrophic and small. Palpation of the lunate revealed it to be hard. The lunate fossa radius had over 90% of its articular surface intact and the part that was involved had only grade 1-2 chondromalacia while the styloid fossa portion of the radius where we had hard enumerated bone consistent with the finding on the scaphoid. We then did see the patient would be a candidate for a proximal carpectomy. Also switching between ports after we completed the synovectomy, we could visualize the triangular fibrocartilage tear, which was almost a cm to 10-12 mm wide and was resected, left a rim of about 4 mm of the TFCC, especially dorsally and palmarly. There was mild amount of chondromalacia on the lunate where with ulnar deviation, we could make that to the lunate and the ulnar styloid hit through the tear and for this reason, we knew the patient should be a candidate for Rayhack type ulnar shortening. Removed the arthroscope. We remained in the same position and exsanguinated the limb, inflated tourniquet to 250 mmHg pressure and began with a zigzag incision centered over the Tristian's tubercle, carried through skin and subcutaneous tissue until we reach the interval between the 3rd and 4th compartment. We then released the retinaculum, into the compartment, and divided and the tendons at this point into ulnar and radial half. Then, we made a L-shaped triangular flap off the radiocarpal joint, preserving as much as possible the dorsal ligament complex, we could visualize the capitate and from here we retracted and began first by removing the triquetrum, but we identified the triquetrum with a large threaded K-wire inside the triquetrum and not into piece form. Dissected free. Then, we did the same with the lunate, but it was so small, it just lifted out. Then, we had to divide the scaphoid into 3 pieces to remove it, but we identified before we did. The capitate easily fit into the lunate fossa. There was no instability or whatsoever as if a course had already made its way there except for the last 3 to 4 mm, because of the longstanding scapholunate instability. The capitate was stable with flexion-extension of fluoroscopy even before we closed the capsule. With this wound open, we then made a zigzag incision over the distal 1/3 of ulna, making sure that we stayed at least 2 cm proximal to the head of the ulna and by doing so, we then carried incision through skin, subcutaneous tissue to reach the midline shaft of ulna, slightly volar we placed the Rayhack cut guide, used the standard drill, measured tap screw technique with the 2, 7 screws until we have [address]. We made a 2 mm cut using the Rayhack saw blade, protecting the underlying neurovascular and tendinous structures with a large flat wide spoonbill baby Hohmann. Once we had made the cut, we placed this with the Rayhack plate, using the same screws in same order and the coaptation device was used to completely reduce to 2 mm gap to anatomic. We then passed a lag screw across the 2, 7 technique, two screws distal, removed the compression device and replaced the two screws with slightly shorter screws. Then, we had excellent fixation. We released the tourniquet. We closed first the wrist joint with a #1 Ethibond interrupted [id number] closure for the capsule repair, after the capsule repair still stable capitate. We then closed the retinaculum with a 2-0 Vicryl over the third and fourth dorsal compartment tendons and the EPL was intact. We now did a subcutaneous closure with a running 4-0 Monocryl and the skin reapproximated with 4-0 nylon epidermal area in interrupted mattress pattern. We closed the fascia after obtaining hemostasis over the Rayhack ulnar osteotomy site using a running 0-Vicryl, subcutaneous closed with interrupted 4-0 Monocryl and 3-0 nylon was used for epidermal and dermal closure. We took the arm out of any position resembling the scope, outlined a midline incision to trace slightly medial up to the epicondyle to ensure that we did not place it on the center of the olecranon and then made incision through skin, subcutaneous tissue, where the medial flap had all the sensory nerves intact in it. We then noticed very thick bursa. Once we identified the ulnar nerve, we did a radical olecranon bursectomy, sent as a specimen, so it would have 3 specimens, the chondral, the bones themselves in the proximal row, the capsular piece for gout, and the bursa. We saw the ulnar nerve and found high proximally in the in the wound where the intermuscular septum was compressed in some, removed this portion of the septum. There was an area beginning about approximately 1 cm proximal to the cubital tunnel itself and through the cubital tunnel where there was marked compression for 2 cm of the ulnar even when released. Here, we switched to a combination of a [place] blade plus tenotomy scissors. The nerve was now free from the triceps, free from the intermuscular septum, which had been partially resected and completely released from the cubital tunnel proper Landsmeer type ligament. Now, we were able to release both heads of the fascia of the flexor pronator group, specifically the flexor carpi ulnaris and radialis, the fascia distal to this, and then the nerve was now free. It was starting to reconstitute as we finished the procedure. We released the tourniquet. We obtained hemostasis. We placed 3 mL of Celestone along the area of the nerve most compressed. The patient had had the wound closed after a radical bursectomy where we before closure was completed, we had placed a thrombin-soaked Gelfoam with the help of hemostasis. The running 3-0 Monocryl and the interrupted 3-0 nylon. A dermal-epidermal closure were used and the patient had had a bulky dressing applied, and a long-arm splint was placed in neutral position at the elbow and rotation at the wrist and forearm was neutral. Digits were free. He had no complications and was admitted however, because we could not do a block. Although he had gotten almost 40 mL of Marcaine, the patient has history of heart disease failure, which postponed his previous surgery and so we felt this 22 hour observation in the hospital be indicated. Job ID: [id number]
--- NOTE | 2018-08-05 01:10 | DIS ---
DATE OF ADMISSION: 08/03/2018 DATE OF DISCHARGE: 08/04/2018 ADMISSION DIAGNOSES: 1. Possible gout. 2. Avascular necrosis of the lunate. 3. Scaphoid lunate advanced collapse wrist, advanced stage 2-3. 4. Ulnocarpal impingement, 2-mm. 5. Ulnar nerve high-grade compression, stage II Pratt changes at the cubital tunnel with cubital tunnel disease. DISCHARGE DIAGNOSES: 1. Gouty arthritis, wrist with capsulitis. 2. 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 3. Ulnar carpal impingement and lunate malacia. 4. Olecranon bursitis. 5. Compression of the cubital tunnel with stage II Pratt changes. HOSPITAL PROCEDURES: 1. Olecranon bursectomy, radicle. 2. Arthroscopic synovectomy wrist, complete. 3. Right proximal row carpectomy, wrist. 4. Right arthroscopic triangular fibrocartilage resection. 5. Wrist joint debridement, arthroscopic. 6. Right ulnar shortening, Rayhack technique. 7. Right ulnar nerve neuroplasty at the elbow/cubital tunnel level. 8. C-arm supervision. 9. Long-arm splint application. HOSPITAL COURSE: The patient was admitted, and the procedures listed above were accomplished. He tolerated his meals well. He did not have shortness of breath or evidence of failure, because he had a negative chest x-ray upon admission just 20 hours before the surgery and he also had examination serially with monitor showing stable vital signs. Respiratory rate never came below 22, never air hunger or dyspneic. He never had jugular venous distention and was able to ambulate without abnormality. No shortness of breath. Pain was at approximately 26 hours after surgery, level 2-3 with minimal oral medication. He was prepared for discharge. DISCHARGE DIAGNOSES: As above. PLAN: Wear the splint, sling at home. He already has some home medication, but I gave him [place] 7.5 for pain, total of 12 tablets, Bactrim DS, prophylactic antibiotics for 5 days and I gave him colchicine to take one tab a day, because of the concern that gout may be exacerbated and cause him recurrent symptoms early. He will follow up in our clinic in 14 days and has been stable this entire time since surgery. CONSULTATIONS IN HOSPITAL: None. He was not monitored in a telemetry bed. Job ID: [id number]
== END 2018-08-04 20:35 | disposition home or self-care (01) ==
LOC: SDC 09:48 → 2SW 21:37
PROVIDERS: ADMIT Orthopaedic Surgery Hand Surgery; ATTEND Orthopaedic Surgery Hand Surgery
PROC: 0RBN4ZZ Excision of Right Wrist Joint, Percutaneous Endoscopic Approach (ICD-10-PCS; principal; 2018-08-04)
PROC: 0PTM0ZZ Resection of Right Carpal, Open Approach (ICD-10-PCS; 2018-08-04)
PROC: 0PBK0ZZ Excision of Right Ulna, Open Approach (ICD-10-PCS; 2018-08-04)
PROC: 0MT30ZZ Resection of Right Elbow Bursa and Ligament, Open Approach (ICD-10-PCS; 2018-08-04)
PROC: 01N40ZZ Release Ulnar Nerve, Open Approach (ICD-10-PCS; 2018-08-04)
DX: M87.841 Other osteonecrosis, right hand (principal); M19.041 Primary osteoarthritis, right hand; G56.21 Lesion of ulnar nerve, right upper limb; S63.511A Sprain of carpal joint of right wrist, initial encounter; M94.231 Chondromalacia, right wrist; M70.21 Olecranon bursitis, right elbow; E78.5 Hyperlipidemia, unspecified; I25.10 Atherosclerotic heart disease of native coronary artery without angina pectoris; I13.0 Hypertensive heart and chronic kidney disease with heart failure and stage 1 through stage 4 chronic kidney disease, or unspecified chronic kidney disease; N18.3 Chronic kidney disease, stage 3 (moderate); I50.40 Unspecified combined systolic (congestive) and diastolic (congestive) heart failure; J44.9 Chronic obstructive pulmonary disease, unspecified; Z90.49 Acquired absence of other specified parts of digestive tract; Z87.891 Personal history of nicotine dependence; Z88.0 Allergy status to penicillin; Z88.2 Allergy status to sulfonamides; Z88.8 Allergy status to other drugs, medicaments and biological substances; Z79.82 Long term (current) use of aspirin; Z79.2 Long term (current) use of antibiotics; Z79.899 Other long term (current) drug therapy; Z98.890 Other specified postprocedural states
CPT/HCPCS: 24105; 25215; 25390; 29845; 73090; 73110; 76000; 80048; 81015; 85025 ×2; 85652; 96365; 96366; C1713; G0378; 36415; 88305; 88311; J0171; J1100; J2001; J2370; J2405; J2704; J3010; J3370; J3490; J7050; S0020

== ENCOUNTER 2018-10-05 06:05 | Observation (INO) | payer MEDICARE ==
[2018-10-04 09:24] VITALS: BMI 37.5
[2018-10-05] MEDS ORDERED: Bacitracin Zinc Ointment 30 gm TUBE ONE (06:23)
[2018-10-05] MEDS ORDERED: Bupivacaine PF 0.5% 30 ML VIAL ONE (06:23)
[2018-10-05 06:40] LABS: #Basophils 0.1 thou/uL (0.0-0.2); #Eosinphils 0.4 thou/uL (0.0-0.7); #Lymphocytes 1.5 thou/uL (1.20-3.40); #Monocytes 0.8 thou/uL (0.11-0.59); #Neutrophils 3.7 thou/uL (1.40-6.50); %Basophils 0.9 % (0.0-1.0); %Eosinophils 5.9 % (0.0-10.0); %Lymphocytes 23.3 % (21.0-51.0); %Monocytes 12.1 % (0.0-10.0); %Neutrophils 57.8 % (42.0-75.0); Hemoglobin 13.1 g/dL (14.0-18.0); Mean Corpuscular HGB CONC 33.1 g/dL (32.0-36.0); Mean Corpuscular Hemoglobin 33.5 pg (27.0-31.0); Mean Platelet Volume 7.4 fL (7.4-10.4); Platelet Count 184 thou/uL (130-400); RBC Distribution Width 11.4 % (11.5-14.5); White Blood Cell (WBC) Count 6.4 thou/uL (4.8-10.8)
[2018-10-05 07:00] LABS: Anion Gap 11 mmol/L (10-20); BUN (Urea Nitrogen) 29 mg/dL (8.4-25.7); Calc. Creatinine Clearance 71 mL/min (70-130); Calcium 9.1 mg/dL (7.8-10.44); Carbon Dioxide 30 mmol/L (23-31); Chloride 102 mmol/L (98-107); Estimated GFR-MDRD 48; Glucose 117 mg/dL (83-110); Potassium 3.8 mmol/L (3.5-5.1); Sodium 139 mmol/L (136-145)
[2018-10-05] MEDS ORDERED: Midazolam HCl 2 mg/2 ml Vial ONE (07:00)
[2018-10-05] MEDS ORDERED: Fentanyl 100 MCG/2 ML VIAL ONE ×2 (07:00→10:11)
[2018-10-05] MEDS ORDERED: Clindamycin/D5W 600 mg/50 ml Premix Bag ONE (07:07)
[2018-10-05] MEDS ORDERED: Morphine 4 MG/ML VIAL ONE (09:28)
[2018-10-05] MEDS ORDERED: Ketorolac Tromethamine 30 MG/ML VIAL ONE (09:28)
[2018-10-05] MEDS ORDERED: Sodium Chloride 0.9% 10 ML ONE (09:33)
[2018-10-05] MEDS ORDERED: Ondansetron PF 4 MG/2 ML Vial IV PRN (09:34)
[2018-10-05] MEDS ORDERED: traMADol HCl 50 MG TAB PO PRN (09:34)
[2018-10-05] MEDS ORDERED: Meperidine HCl/PF 25 MG/ML VIAL IM PRN (09:37)
[2018-10-05] MEDS ORDERED: TETANUS AND DIPHTHERIA TOX/PF 0.5 ML DISP.SYRIN IM SCH (09:45)
[2018-10-05] MEDS ORDERED: PROPOFOL 200 MG/20 ML VIAL ONE (10:24)
[2018-10-05] MEDS ORDERED: Lidocaine 1% PF 5 ML VIAL ONE (10:24)
[2018-10-05] MEDS ORDERED: Ondansetron PF 4 MG/2 ML Vial ONE (10:24)
[2018-10-05] MEDS ORDERED: Promethazine HCl 25 MG/ML VIAL IM/IV PRN (10:56)
[2018-10-05] MEDS ORDERED: Morphine Sulfate 2 MG/ML SYRINGE SLOW IVP PRN (10:56)
[2018-10-05] MEDS ORDERED: Non-Formulary Medication 1 EACH PO PRN (10:56)
[2018-10-05] MEDS ORDERED: Ondansetron HCl/PF 4 MG/2 ML Vial IVP PRN (10:56)
--- NOTE | 2018-10-05 12:23 | RAD ---
RIGHT WRIST 3 VIEWS: Date: 10/05/18 HISTORY: Intraoperative film. FINDINGS: Film shows open reduction and internal fixation of an ulnar shaft fracture with plate and screws. IMPRESSION: Open reduction and internal fixation of ulnar fracture. POS: TPC
[2018-10-05] MEDS ORDERED: Prevnar 13-Val Conj/PF 0.5 ML SYRINGE IM ONE (12:45)
[2018-10-05] MEDS ORDERED: Vancomycin HCl 1 GM in Premix Bag 1 BAG IVPB SCH (13:00)
[2018-10-05] MEDS: Morphine 4 MG/ML VIAL SLOW IVP PRN (13:42)
[2018-10-05] MEDS: HYDROcodone/Acetaminophen 5/325 mg Tablet PO PRN ×2 (15:52→19:58)
--- NOTE | 2018-10-05 15:53 | OP ---
DATE OF PROCEDURE: 10/05/2018 PREOPERATIVE DIAGNOSES: 1. Right ulna fracture, loss of position with early nonunion, nearly 2-1/2 months after previously intact Rayhack shortening osteotomy with Rayhack plate. 2. Failed implant. 3. Early nonunion. POSTOPERATIVE DIAGNOSES: 1. Right ulna fracture, loss of position with early nonunion, nearly 2-1/2 months after previously intact Rayhack shortening osteotomy with Rayhack plate. 2. Failed implant. 3. Early nonunion. PROCEDURES PERFORMED: 1. Removal of failed implant of the ulna, midshaft. 2. Open reduction and internal fixation of ulnar fracture/nonunion. 3. Bone grafting, cancellous chips from the cadaver bank. TOURNIQUET TIME: 55 minutes. ESTIMATED BLOOD LOSS: 10 mL. INJECTABLE: 30 mL of 0.5% Marcaine. ANESTHESIA: Dr. Dillard, general LMA technique augmented by the Marcaine. C-ARM USE: Yes. INDICATIONS: The patient is now approximately 3 months after what had been postop followups, anatomic position and nearly healed Rayhack osteotomy. His wrist pain was resolved as well. He reported he had a fall and followed up with us 1 week ago, and we noticed that the screws had been dislodged distal too and osteotomy has shifted, thus it was not stable. DESCRIPTION OF PROCEDURE: After successful anesthesia listed above, the limb was prepped and draped. Time-out was done appropriately identifying the site, side, and the procedure as matching. The patient then after prepping and draping had the limb exsanguinated, an incision extended 2.5 cm distal and proximal, we injected before with 30 mL of 0.5% Marcaine and then made an incision. We carried through the skin and subcutaneous tissue, opened the fascia over the bone with a [place] blade and then exposed an area of serous fluid, not infected, escaped from osteotomy site indicative of lack of healing. We debrided the site. We noticed that there was an area was approximately 20% comminuted on the direct area under the plate, so we decided to debride the fracture area, using nonunion technique such as paddling and drilling, curettage and then we placed a plate 90 degrees to the previous one with two holes on either side of the previous Rayhack osteotomy plate holes distally and proximally. We then used the C-arm to see it was nearly anatomic except the area where the bone was missing. We made the provisional fixation, then began proximal with a standard drill, measure, and screw technique. We used appropriate angle screws at the site of the old osteotomy itself to help reduce this even though anatomic and still used bone graft, for it was approximately 20% cortex comminuted and when we got through debriding out the canal, we placed bone graft here as well. The fracture line had disappeared. One screw was exchanged, we had excellent feel of the screws and we had achieved a goal of at least 4 cortices of screws distal and proximal to the previous screws in a different plane. I released the tourniquet, achieved hemostasis, closed the fascia with a running 0 Vicryl, subcutaneous closure with a running 3-0 Monocryl and then we placed Steri-Strips on the epidermis. The patient left the operating room with bulky dressing and a sugar-tong long-arm splint without evidence of anesthetic or operative complication. Job ID: [id number]
[2018-10-05 19:00] LABS: Bilirubin Negative (Negative); Blood, Urine Negative (Negative); Clarity CLEAR (Clear); Glucose, Urine (Dipstick) Negative (Negative); Leukocyte Negative (Negative); Nitrite Negative (Negative); Protein, Urine (Dipstick) Negative (Neg-Trace); Specific Gravity, Urine 1.021 (1.002-1.036); Urobilinogen 0.2 mg/dL (0.2-1.0)
[2018-10-05 19:02] LABS: Bacteria/HPF None Seen HPF (None Seen); Hyaline Casts/LPF 0-3 HYALINE CAST LPF (0-3 Hyaline); Pathc Cast-AUWi Flag 0.13 (0-2.49); RBC/HPF None Seen HPF (0-3); Squamous Epithelial None Seen HPF (0-3); WBC/HPF None Seen HPF (0-3)
[2018-10-05] MEDS: Aspirin 81 mg Enteric Coated Tablet PO SCH (20:00)
[2018-10-06] MEDS: Morphine 4 MG/ML VIAL SLOW IVP PRN (00:01)
[2018-10-06] MEDS: HYDROcodone/Acetaminophen 5/325 mg Tablet PO PRN ×3 (00:02→08:55)
[2018-10-06 08:38] VITALS: BP 115/71; TEMP 98.3
[2018-10-06] MEDS: Aspirin 81 mg Enteric Coated Tablet PO SCH (08:55)
== END 2018-10-06 10:55 | disposition home or self-care (01) ==
LOC: SDC 06:05 → SURG A 09:34
PROVIDERS: ADMIT Orthopaedic Surgery Hand Surgery; ATTEND Orthopaedic Surgery Hand Surgery
PROC: 0PSK04Z Reposition Right Ulna with Internal Fixation Device, Open Approach (ICD-10-PCS; principal; 2018-10-05)
PROC: 0PUK0KZ Supplement Right Ulna with Nonautologous Tissue Substitute, Open Approach (ICD-10-PCS; 2018-10-05)
DX: S52.201K Unspecified fracture of shaft of right ulna, subsequent encounter for closed fracture with nonunion (principal); I13.0 Hypertensive heart and chronic kidney disease with heart failure and stage 1 through stage 4 chronic kidney disease, or unspecified chronic kidney disease; N18.3 Chronic kidney disease, stage 3 (moderate); I50.40 Unspecified combined systolic (congestive) and diastolic (congestive) heart failure; J44.9 Chronic obstructive pulmonary disease, unspecified; I25.10 Atherosclerotic heart disease of native coronary artery without angina pectoris; Z87.891 Personal history of nicotine dependence; Z79.82 Long term (current) use of aspirin; Z79.899 Other long term (current) drug therapy; Z88.0 Allergy status to penicillin; Z88.8 Allergy status to other drugs, medicaments and biological substances
CPT/HCPCS: 25400; 25999; 73110; 76000; 80048; 81001; 85025; 85652; 87070; 87075; 87205; 94640; 96374; 96376; C1713 ×3; G0378; 36415; J0131; J1885; J2001; J2250; J2270; J2405; J2704; J3010; J3370; J3490; S0020

== ENCOUNTER 2019-06-11 05:43 | Day surgery (SDC) | payer MEDICARE ==
[2019-06-10 15:00] VITALS: BMI 38.7
[2019-06-11] MEDS ORDERED: Midazolam HCl 2 mg/2 ml Vial ONE (06:17)
[2019-06-11] MEDS ORDERED: Fentanyl 100 MCG/2 ML VIAL ONE (06:17)
[2019-06-11] MEDS ORDERED: EPINEPHrine 1 MG/ML AMP ONE (06:19)
[2019-06-11] MEDS ORDERED: Bupivacaine PF 0.5% 30 ML VIAL ONE (06:19)
[2019-06-11] MEDS ORDERED: Betamet Acet/Betamet Na Ph 30 MG/5 ML VIAL ONE (06:19)
[2019-06-11] MEDS ORDERED: Bacitracin Zinc Ointment 30 gm TUBE ONE (06:19)
[2019-06-11 06:45] LABS: #Eosinphils 0.5 thou/uL (0.0-0.7); #Lymphocytes 1.4 thou/uL (1.20-3.40); #Monocytes 0.8 thou/uL (0.11-0.59); %Basophils 0.6 % (0.0-1.0); %Eosinophils 7.4 % (0.0-10.0); %Lymphocytes 21.2 % (21.0-51.0); %Monocytes 11.4 % (0.0-10.0); %Neutrophils 59.3 % (42.0-75.0); Hemoglobin 13.9 g/dL (14.0-18.0); Mean Corpuscular HGB CONC 34.6 g/dL (32.0-36.0); Mean Corpuscular Hemoglobin 34.6 pg (27.0-31.0); Mean Platelet Volume 7.5 fL (7.4-10.4); Platelet Count 198 thou/uL (130-400); RBC Distribution Width 11.4 % (11.5-14.5); Red Blood Cell (RBC) Count 4.02 mill/uL (4.70-6.10); White Blood Cell (WBC) Count 6.7 thou/uL (4.8-10.8)
[2019-06-11] MEDS ORDERED: Clindamycin/D5W 900 mg/50 ml Premix Bag ONE (07:04)
[2019-06-11 07:07] LABS: Anion Gap 13 mmol/L (10-20); BUN (Urea Nitrogen) 28 mg/dL (8.4-25.7); Calc. Creatinine Clearance 69 mL/min (70-130); Calcium 8.7 mg/dL (7.8-10.44); Carbon Dioxide 30 mmol/L (23-31); Chloride 99 mmol/L (98-107); Estimated GFR-MDRD 46; Glucose 127 mg/dL (83-110); Potassium 3.5 mmol/L (3.5-5.1); Sodium 138 mmol/L (136-145)
[2019-06-11 07:11] LABS: Bacteria/HPF None Seen HPF (None Seen); RBC/HPF 0-3 HPF (0-3); Squamous Epithelial None Seen HPF (0-3); WBC/HPF 0-3 HPF (0-3)
[2019-06-11] MEDS ORDERED: Metoprolol Tartrate 5 MG/5 ML VIAL ONE (08:55)
--- NOTE | 2019-06-11 14:38 | OP ---
DATE OF PROCEDURE: 06/11/2019 PREOPERATIVE DIAGNOSIS: Left carpal tunnel syndrome. PROCEDURES PERFORMED: 1. Left carpal tunnel release. 2. Celestone injection to left wrist. TOURNIQUET TIME: 20 minutes. ESTIMATED BLOOD LOSS: Less than 5 mL. INDICATIONS FOR PROCEDURE: Patient had multiple diagnoses made in the office to include SLAC wrist and a TFCC with possible ulnocarpal impingement along with carpal tunnel syndrome verified by EMG on exam. He reports that his wrist has not bothered him in the month prior to this procedure and he would like to not have the intra-articular procedure scheduled for the wrist and possible ulnar shortening done because it is not hurting him. He still has continued numbness, however, index and long finger greater than thumb and ring finger without small finger. When exam today reveals continued carpal tunnel syndrome, we proceeded with his wishes to only address carpal tunnel today. DESCRIPTION OF PROCEDURE: After successful general endotracheal anesthesia, the limb was prepped and draped. We then gave him 10 mL of 0.5% Marcaine along the outlined incision which was in line with the ring finger from mediolateral and as far distal as Blount's cardinal line for proximal to 5 mm distal to the volar wrist flexion crease. After 4 minutes, we then exsanguinated the limb, inflated tourniquet to 250 mmHg pressure and then made an incision on this line. We identified a very tight transverse carpal ligament. We then began to release it just ulnar to the insertion of the palmaris longus on the transverse carpal ligament and fascia, from the midpoint distally using combination of [place] blade and tenotomy scissors. Once it was released completely, we then began to see the marked compression underneath with hourglass formation over a 1.5 cm area. We then identified the transcarpal ligament from the midportion proximally, using tunnel techniques with assistance, elevation of the palmar skin, we could visualize the transcarpal ligament until it went into the palmar fascia and then released this with the same combination of instruments. There was no significant tenosynovitis. No tenosynovectomy was accomplished. We put 5 mL of Celestone using a slow drip technique over the nerve and then released the tourniquet, obtained hemostasis. We closed the wound with interrupted 4-0 nylon in a mattress pattern and a bulky dressing was applied. He left the operating room without evidence of anesthetic or operative complication. Job ID: [id number]
[2019-06-11] MEDS ORDERED: PROPOFOL 200 MG/20 ML VIAL ONE (14:49)
[2019-06-11] MEDS ORDERED: Lidocaine 1% PF 5 ML VIAL ONE (14:49)
[2019-06-11] MEDS ORDERED: Dexamethasone 20 MG/5 ML VIAL ONE (14:49)
[2019-06-11] MEDS ORDERED: Ketorolac Tromethamine 30 MG/ML VIAL ONE (14:49)
[2019-06-11] MEDS ORDERED: Succinylcholine Chloride 20 MG/ML 10 ml SYRINGE FS ONE (14:49)
[2019-06-11] MEDS ORDERED: Ondansetron PF 4 MG/2 ML Vial ONE (14:49)
== END 2019-06-11 11:20 | disposition home or self-care (01) ==
LOC: SDC 05:43
PROVIDERS: ATTEND Orthopaedic Surgery Hand Surgery
PROC: 01N50ZZ Release Median Nerve, Open Approach (ICD-10-PCS; principal; 2019-06-11)
DX: G56.02 Carpal tunnel syndrome, left upper limb (principal); M19.032 Primary osteoarthritis, left wrist; M19.042 Primary osteoarthritis, left hand; M19.041 Primary osteoarthritis, right hand; K21.9 Gastro-esophageal reflux disease without esophagitis; N40.0 Benign prostatic hyperplasia without lower urinary tract symptoms; Z88.0 Allergy status to penicillin; Z96.652 Presence of left artificial knee joint
CPT/HCPCS: 80048; 81015; 85025; 93005; 93010; J0171; J0702; J1100; J1885; J2001; J2250; J2405; J2704; J3010; J3490; S0020

== ENCOUNTER 2021-05-21 11:39 | Outpatient (CLI) | payer MEDICARE | END 2021-05-21 11:40 | disposition home or self-care (01) | LOC: BICRAD 11:39 | PROVIDERS: ATTEND Nurse Practitioner Family | DX: R06.02 Shortness of breath (principal) | CPT/HCPCS: 71046 ==